=== PATIENT | female | born 1970 | race Caucasian/White ===

== ENCOUNTER 2017-10-13 09:27 | Day surgery (SDC) | payer BC ==
[~2017-10-13] VITALS: Ht 170.2 cm; Wt 121.4 kg
[~2017-10-13 09:27] MED LIST: CARAFATE PO; FERROUS SU325 MG/TAB PO; FLEXERIL 1010 MG/TAB PO; INDOCIN50 MG PO; LIPITOR20 MG PO; LORTAB 5/500 501 TAB PO; PROTONIX 40MG T40 MG PO; SYNTHROID0.05 MG/TA PO
[2017-10-13 10:41] VITALS: BP 129/82; PULSE 98; TEMP 97.9
[2017-10-13] MEDS ORDERED: TAGAMET200 MG PO (10:53)
[2017-10-13] MEDS ORDERED: DECADRON 4MG TAB4 MG PO (10:54)
[2017-10-13] MEDS ORDERED: PHENERGAN 25 TA25 MG PO (10:55)
[2017-10-13] MEDS ORDERED: IBU800 M1 PO (10:56)
[2017-10-13] MEDS ORDERED: SENOKOT S 50 MG1 TAB PO (10:57)
[2017-10-13] MEDS ORDERED: ATIVAN 0.50.5 MG/TAB PO (10:57)
[2017-10-13] MEDS ORDERED: ROXICODONE 55 MG/TAB PO (10:58)
[2017-10-13] MEDS ORDERED: MIRALAX PA17 GM/Dose PO (10:59)
[2017-10-13] MEDS ORDERED: NORCO 325 MG-51 TAB PO (10:59)
[2017-10-13] MEDS ORDERED: CLARITIN 1010 MG/TAB PO (11:00)
[2017-10-13 13:30] VITALS: BP 139/88; PULSE 105
[2017-10-13 13:45] VITALS: BP 134/79; PULSE 100
[2017-10-13 14:00] VITALS: BP 133/91; PULSE 99
== END 2017-10-13 14:30 | disposition home or self-care (01) ==
LOC: SDCO 09:27
DX: C48.2 Malignant neoplasm of peritoneum, unspecified (principal); C78.7 Secondary malignant neoplasm of liver and intrahepatic bile duct; I10 Essential (primary) hypertension; M81.0 Age-related osteoporosis without current pathological fracture; K21.9 Gastro-esophageal reflux disease without esophagitis; I87.8 Other specified disorders of veins; Z90.49 Acquired absence of other specified parts of digestive tract; Z90.710 Acquired absence of both cervix and uterus; Z88.8 Allergy status to other drugs, medicaments and biological substances; Z88.5 Allergy status to narcotic agent; Z87.891 Personal history of nicotine dependence
CPT/HCPCS: C1788; J0690; J1644; J2704; J3010; J7120

== ENCOUNTER → 2017-11-07 | Outpatient (CLI) | payer BC ==
[~2017-11-07] MED LIST changes: +ATIVAN 0.50.5 MG/TAB PO; +CLARITIN 1010 MG/TAB PO; +DECADRON 4MG TAB4 MG PO; +IBU800 M1 PO; +MIRALAX PA17 GM/Dose PO; +NORCO 325 MG-51 TAB PO; +PHENERGAN 25 TA25 MG PO; +ROXICODONE 55 MG/TAB PO; +SENOKOT S 50 MG1 TAB PO; +TAGAMET200 MG PO
[2017-11-07 10:33] LABS: BASO % 0.6 % (0.0-2.0); EOS # 0.1 (0.0-0.7); EOS % 1.3 % (0-4.0); GRAN # 3.5 (1.4-6.5); GRAN % 55.3 % (42.2-75.2); HEMATOCRIT 37.4 % (37.0-47.0); HEMOGLOBIN 12.6 g/dl (12.5-16.0); LYMPH % 30.8 % (20.0-51.0); MEAN CELL VOLUME 89 fl (80.0-100.0); MEAN CORPUSCULAR HEMOGLOBIN 30 pg (27.0-31.0); MEAN CORPUSCULAR HGB CONC 34 g/dl (33.0-37.0); MEAN PLATELET VOLUME 9.3 fl (7.4-10.4); MONO # 0.7 (0.1-0.6); MONO % 11.2 % (1.7-9.3); PLATELET COUNT 261 K/mm3 (130-400); RED BLOOD COUNT 4.21 M/mm3 (4.10-5.30); REDCELL DISTRIBUTION WIDTH-CV 19.2 % (11.5-14.5)
[2017-11-07 10:46] LABS: ALBUMIN 4.4 gm/dL (3.5-5.0); BILIRUBIN,TOTAL 0.7 mg/dL (0.0-1.0); CALCIUM 9.5 mg/dL (8.4-10.2); CREATININE, serum 0.61 mg/dL (0.52-1.25); POTASSIUM 4.1 mmol/L (3.4-5.0); TOTAL PROTEIN 8.4 gm/dL (6.4-8.2)
== END ==
LOC: COL.RAD 09:48
PROVIDERS: Obstetrics & Gynecology
DX: C48.8 Malignant neoplasm of overlapping sites of retroperitoneum and peritoneum (principal); C78.7 Secondary malignant neoplasm of liver and intrahepatic bile duct; R91.8 Other nonspecific abnormal finding of lung field; E04.9 Nontoxic goiter, unspecified; E27.8 Other specified disorders of adrenal gland; Z90.710 Acquired absence of both cervix and uterus; Z96.0 Presence of urogenital implants; Z90.49 Acquired absence of other specified parts of digestive tract
CPT/HCPCS: Q9967

== ENCOUNTER → 2017-11-28 | Outpatient (CLI) | payer BC ==
[~2017-11-28] MED LIST changes: +FLOMAX 0.40.4 MG/CAP PO; +OMNICEF 300MG300 MG PO
[2017-11-28 08:57] LABS: HEMOGLOBIN 10.1 g/dl (12.5-16.0); MEAN CELL VOLUME 87 fl (80.0-100.0); MEAN CORPUSCULAR HEMOGLOBIN 30 pg (27.0-31.0); MEAN CORPUSCULAR HGB CONC 34 g/dl (33.0-37.0); MEAN PLATELET VOLUME 9.4 fl (7.4-10.4); REDCELL DISTRIBUTION WIDTH-CV 15.3 % (11.5-14.5)
[2017-11-28 09:08] LABS: ALBUMIN 3.9 gm/dL (3.5-5.0); BILIRUBIN,TOTAL 0.7 mg/dL (0.0-1.0); CALCIUM 9.5 mg/dL (8.4-10.2); CREATININE, serum 0.59 mg/dL (0.52-1.25); POTASSIUM 3.9 mmol/L (3.4-5.0); TOTAL PROTEIN 7.4 gm/dL (6.4-8.2)
[2017-11-28 09:27] LABS: HEMATOCRIT 29.7 % (37.0-47.0)
[2017-11-28 09:31] LABS: PLATELET COUNT 28 K/mm3 (130-400)
[2017-11-28 09:48] LABS: BAND 2 % (0-10); EOSINOPHIL 1 % (0-4); LYMPHOCYTE 77 % (20.0-51.0); METAMYELOCYTE 1 % (0-0); NEUTROPHILS 19 % (42.0-75.2); PLATELET ESTIMATE DECREASED (NORMAL)
== END ==
LOC: COL.LAB 08:22
PROVIDERS: Obstetrics & Gynecology
DX: C48.8 Malignant neoplasm of overlapping sites of retroperitoneum and peritoneum (principal)

== ENCOUNTER → 2017-11-28 | Emergency (ER) | payer BC ==
[~2017-11-28] VITALS: Ht 170.2 cm; Wt 120.5 kg
[2017-11-28 15:10] VITALS: BP 165/99; PULSE 117; TEMP 98.3
[2017-11-28 16:34] LABS: COLLECTION METHOD CLEAN CATCH
[2017-11-28 16:47] LABS: MUCOUS Present /lpf; PH 6 (5-8); SQUAMOUS EPITHELIAL 0-2 /hpf; URINE APPEARANCE Hazy; URINE BACTERIA Rare /hpf; URINE BILIRUBIN Negative (NEGATIVE); URINE BLOOD 3+ (NEGATIVE); URINE COLOR Yellow; URINE GLUCOSE Negative (NEGATIVE); URINE KETONE Negative (NEGATIVE); URINE LEUKOCYTE ESTERASE Negative (NEGATIVE); URINE NITRATE Negative (NEGATIVE); URINE PROTEIN(semi-quant) 1+ (NEGATIVE); URINE RBC >50 /hpf
== END ==
LOC: COL.ER 15:07
PROVIDERS: Emergency Medicine
DX: R10.9 Unspecified abdominal pain (principal); Z96.0 Presence of urogenital implants
CPT/HCPCS: J0696; J0780; J1885; J3010; J7030; Q9967

== ENCOUNTER → 2017-12-07 | Outpatient (CLI) | payer BC ==
[2017-12-07 08:44] LABS: BASO % 0.7 % (0.0-2.0); EOS # 0.1 (0.0-0.7); EOS % 2.1 % (0-4.0); GRAN # 1.3 (1.4-6.5); HEMOGLOBIN 11.3 g/dl (12.5-16.0); LYMPH # 2.2 (1.2-3.4); LYMPH % 51.9 % (20.0-51.0); MEAN CELL VOLUME 91 fl (80.0-100.0); MEAN CORPUSCULAR HEMOGLOBIN 30 pg (27.0-31.0); MEAN CORPUSCULAR HGB CONC 33 g/dl (33.0-37.0); MEAN PLATELET VOLUME 8.8 fl (7.4-10.4); MONO # 0.6 (0.1-0.6); MONO % 14.1 % (1.7-9.3); PLATELET COUNT 496 K/mm3 (130-400); RED BLOOD COUNT 3.79 M/mm3 (4.10-5.30); REDCELL DISTRIBUTION WIDTH-CV 16.8 % (11.5-14.5)
[2017-12-07 08:48] LABS: HEMATOCRIT 34.6 % (37.0-47.0)
== END ==
LOC: COL.LAB 08:09
PROVIDERS: Obstetrics & Gynecology
DX: C48.8 Malignant neoplasm of overlapping sites of retroperitoneum and peritoneum (principal)

== ENCOUNTER → 2017-12-28 | Outpatient (CLI) | payer BC ==
[2017-12-28 10:16] LABS: HEMATOCRIT 29.1 % (37.0-47.0); HEMOGLOBIN 9.8 g/dl (12.5-16.0); MEAN CELL VOLUME 94 fl (80.0-100.0); MEAN CORPUSCULAR HEMOGLOBIN 32 pg (27.0-31.0); MEAN CORPUSCULAR HGB CONC 34 g/dl (33.0-37.0); MEAN PLATELET VOLUME 10.9 fl (7.4-10.4); PLATELET COUNT 85 K/mm3 (130-400); RED BLOOD COUNT 3.11 M/mm3 (4.10-5.30)
[2017-12-28 10:27] LABS: ALBUMIN 3.9 gm/dL (3.5-5.0); BILIRUBIN,TOTAL 0.4 mg/dL (0.0-1.0); CREATININE, serum 0.61 mg/dL (0.52-1.25); POTASSIUM 3.6 mmol/L (3.4-5.0); TOTAL PROTEIN 6.9 gm/dL (6.4-8.2)
[2017-12-28 10:39] LABS: ANISOCYTOSIS 1+; BAND 11 % (0-10); LYMPHOCYTE 36 % (20.0-51.0); MYELOCYTE 1 % (0-0); NEUTROPHILS 39 % (42.0-75.2); NUCLEATED RED BLOOD CELL 1 (0-6); PLATELET ESTIMATE DECREASED (NORMAL); POLYCHROMASIA 2+
[2017-12-28 10:40] LABS: TOXIC GRANULATION PRESENT
== END ==
LOC: COL.LAB 09:45
PROVIDERS: Obstetrics & Gynecology
DX: C48.8 Malignant neoplasm of overlapping sites of retroperitoneum and peritoneum (principal)

== ENCOUNTER → 2018-01-18 | Outpatient (CLI) | payer BC ==
[2018-01-18 08:34] LABS: MEAN CELL VOLUME 95 fl (80.0-100.0); MEAN CORPUSCULAR HGB CONC 33 g/dl (33.0-37.0); RED BLOOD COUNT 2.81 M/mm3 (4.10-5.30); REDCELL DISTRIBUTION WIDTH-CV 15.8 % (11.5-14.5)
[2018-01-18 08:42] LABS: ALBUMIN 3.7 gm/dL (3.5-5.0); BILIRUBIN,TOTAL 0.4 mg/dL (0.0-1.0); CALCIUM 8.4 mg/dL (8.4-10.2); CREATININE, serum 0.59 mg/dL (0.52-1.25); POTASSIUM 3.4 mmol/L (3.4-5.0); TOTAL PROTEIN 6.6 gm/dL (6.4-8.2)
[2018-01-18 09:53] LABS: HEMATOCRIT 26.6 % (37.0-47.0); HEMOGLOBIN 8.7 g/dl (12.5-16.0); MEAN CORPUSCULAR HEMOGLOBIN 31 pg (27.0-31.0)
[2018-01-18 09:56] LABS: PLATELET COUNT 26 K/mm3 (130-400)
[2018-01-18 10:27] LABS: BAND 10 % (0-10); EOSINOPHIL 2 % (0-4); LYMPHOCYTE 42 % (20.0-51.0); METAMYELOCYTE 1 % (0-0); NEUTROPHILS 32 % (42.0-75.2); NUCLEATED RED BLOOD CELL 1 (0-6)
[2018-01-18 10:28] LABS: PLATELET ESTIMATE DECREASED (NORMAL)
[2018-01-18 10:29] LABS: HYPOCHROMIA 1+
== END ==
LOC: COL.LAB 07:53
PROVIDERS: Obstetrics & Gynecology
DX: C48.8 Malignant neoplasm of overlapping sites of retroperitoneum and peritoneum (principal)

== ENCOUNTER → 2018-01-22 | Outpatient (CLI) | payer BC ==
[2018-01-22 08:41] LABS: BASO % 0.5 % (0.0-2.0); EOS # 0.1 (0.0-0.7); EOS % 1.6 % (0-4.0); GRAN # 1.7 (1.4-6.5); LYMPH # 1.3 (1.2-3.4); LYMPH % 35.5 % (20.0-51.0); MEAN CELL VOLUME 98 fl (80.0-100.0); MEAN CORPUSCULAR HGB CONC 32 g/dl (33.0-37.0); MEAN PLATELET VOLUME 10.5 fl (7.4-10.4); MONO # 0.6 (0.1-0.6); MONO % 16.9 % (1.7-9.3); PLATELET COUNT 155 K/mm3 (130-400); RED BLOOD COUNT 3.09 M/mm3 (4.10-5.30); REDCELL DISTRIBUTION WIDTH-CV 18.7 % (11.5-14.5)
[2018-01-22 08:42] LABS: HEMATOCRIT 30.4 % (37.0-47.0); HEMOGLOBIN 9.6 g/dl (12.5-16.0); MEAN CORPUSCULAR HEMOGLOBIN 31 pg (27.0-31.0)
[2018-01-22 08:51] LABS: BILIRUBIN,TOTAL 0.3 mg/dL (0.0-1.0); CALCIUM 8.3 mg/dL (8.4-10.2); CREATININE, serum 0.74 mg/dL (0.52-1.25); POTASSIUM 3.9 mmol/L (3.4-5.0); TOTAL PROTEIN 6.8 gm/dL (6.4-8.2)
== END ==
LOC: COL.LAB 08:18
PROVIDERS: Obstetrics & Gynecology
DX: C48.8 Malignant neoplasm of overlapping sites of retroperitoneum and peritoneum (principal)

== ENCOUNTER → 2018-02-14 | Outpatient (CLI) | payer BC ==
[2018-02-14 10:31] LABS: MEAN CELL VOLUME 97 fl (80.0-100.0); MEAN CORPUSCULAR HGB CONC 32 g/dl (33.0-37.0); MEAN PLATELET VOLUME 11.1 fl (7.4-10.4); PLATELET COUNT 118 K/mm3 (130-400); RED BLOOD COUNT 2.65 M/mm3 (4.10-5.30); REDCELL DISTRIBUTION WIDTH-CV 17.2 % (11.5-14.5)
[2018-02-14 10:37] LABS: HEMATOCRIT 25.8 % (37.0-47.0); HEMOGLOBIN 8.3 g/dl (12.5-16.0); MEAN CORPUSCULAR HEMOGLOBIN 31 pg (27.0-31.0)
[2018-02-14 10:45] LABS: ALBUMIN 3.6 gm/dL (3.5-5.0); BILIRUBIN,TOTAL 0.4 mg/dL (0.0-1.0); CALCIUM 8.1 mg/dL (8.4-10.2); CREATININE, serum 0.6 mg/dL (0.52-1.25); POTASSIUM 3.3 mmol/L (3.4-5.0); TOTAL PROTEIN 6.4 gm/dL (6.4-8.2)
[2018-02-14 10:54] LABS: ANISOCYTOSIS 1+; BAND 8 % (0-10); EOSINOPHIL 1 % (0-4); LYMPHOCYTE 51 % (20.0-51.0); MYELOCYTE 4 % (0-0); NEUTROPHILS 29 % (42.0-75.2); NUCLEATED RED BLOOD CELL 2 (0-6); PLATELET ESTIMATE DECREASED (NORMAL); POLYCHROMASIA 2+
== END ==
LOC: COL.LAB 09:41
PROVIDERS: Obstetrics & Gynecology
DX: C48.8 Malignant neoplasm of overlapping sites of retroperitoneum and peritoneum (principal)

== ENCOUNTER → 2018-02-28 | Outpatient (CLI) | payer BC | LOC: MC.RAD 09:03 | DX: Z12.31 Encounter for screening mammogram for malignant neoplasm of breast (principal); N64.89 Other specified disorders of breast ==

== ENCOUNTER → 2018-03-07 | Outpatient (CLI) | payer BC | LOC: MC.RAD 10:39 | DX: N64.89 Other specified disorders of breast (principal) ==

== ENCOUNTER → 2018-03-29 | Outpatient (CLI) | payer BC ==
[~2018-03-29] MED LIST changes: +ATIVAN2 MG PO; +PERCOCET 325 MG1 TA2 PO; +PRIL40 PO
== END ==
LOC: COL.RAD 12:06
DX: C48.2 Malignant neoplasm of peritoneum, unspecified (principal); R42 Dizziness and giddiness; R51 Headache
CPT/HCPCS: A9585

== ENCOUNTER 2018-04-12 11:46 | Day surgery (SDC) | payer BC ==
[~2018-04-12] VITALS: Ht 167.6 cm; Wt 128.8 kg
[~2018-04-12 11:46] MED LIST changes: -ATIVAN2 MG PO; -PERCOCET 325 MG1 TA2 PO; -PRIL40 PO
[2018-04-12] MEDS ORDERED: ATIVAN2 MG PO (12:15)
[2018-04-12] MEDS ORDERED: PRIL40 PO (12:15)
[2018-04-12 12:16] VITALS: BP 130/99; PULSE 104; TEMP 97.7
[2018-04-12] MEDS ORDERED: PERCOCET 325 MG1 TA2 PO (12:16)
[2018-04-12 16:05] VITALS: BP 123/80; PULSE 94; TEMP 97.7
[2018-04-12 16:20] VITALS: BP 118/71; PULSE 90
[2018-04-12 16:35] VITALS: BP 127/75; PULSE 91
== END 2018-04-12 16:51 | disposition home or self-care (01) ==
LOC: SDCO 11:46
DX: N13.5 Crossing vessel and stricture of ureter without hydronephrosis (principal); N13.1 Hydronephrosis with ureteral stricture, not elsewhere classified; K21.9 Gastro-esophageal reflux disease without esophagitis; Z85.118 Personal history of other malignant neoplasm of bronchus and lung; Z85.05 Personal history of malignant neoplasm of liver; Z90.49 Acquired absence of other specified parts of digestive tract; Z90.710 Acquired absence of both cervix and uterus; Z88.5 Allergy status to narcotic agent; Z88.8 Allergy status to other drugs, medicaments and biological substances; Z87.891 Personal history of nicotine dependence
CPT/HCPCS: C1769; C2617; J0690; J2704; J3010; J7120; Q9967

== ENCOUNTER → 2018-04-19 | Outpatient (CLI) | payer BC ==
[~2018-04-19] MED LIST changes: +ATIVAN2 MG PO; +PERCOCET 325 MG1 TA2 PO; +PRIL40 PO
[2018-04-19 08:55] LABS: BASO % 0.1 % (0.0-2.0); EOS # 0.1 (0.0-0.7); EOS % 1.7 % (0-4.0); GRAN # 3.6 (1.4-6.5); GRAN % 51.6 % (42.2-75.2); HEMOGLOBIN 11.3 g/dl (12.5-16.0); LYMPH # 2.7 (1.2-3.4); LYMPH % 39.1 % (20.0-51.0); MEAN CELL VOLUME 93 fl (80.0-100.0); MEAN CORPUSCULAR HEMOGLOBIN 29 pg (27.0-31.0); MEAN CORPUSCULAR HGB CONC 32 g/dl (33.0-37.0); MONO # 0.5 (0.1-0.6); MONO % 6.9 % (1.7-9.3); PLATELET COUNT 218 K/mm3 (130-400); RED BLOOD COUNT 3.88 M/mm3 (4.10-5.30); REDCELL DISTRIBUTION WIDTH-CV 13.7 % (11.5-14.5)
[2018-04-19 08:56] LABS: HEMATOCRIT 35.9 % (37.0-47.0)
[2018-04-19 09:04] LABS: ALBUMIN 3.7 gm/dL (3.5-5.0); BILIRUBIN,TOTAL 0.3 mg/dL (0.0-1.0); CALCIUM 8.6 mg/dL (8.4-10.2); CREATININE, serum 0.63 mg/dL (0.52-1.25); POTASSIUM 4.2 mmol/L (3.4-5.0); TOTAL PROTEIN 6.9 gm/dL (6.4-8.2)
== END ==
LOC: COL.LAB 08:06
PROVIDERS: Obstetrics & Gynecology
DX: C48.8 Malignant neoplasm of overlapping sites of retroperitoneum and peritoneum (principal)

== ENCOUNTER 2018-04-26 20:55 | Emergency (ER) | payer BC ==
[~2018-04-26] VITALS: Ht 167.6 cm; Wt 130.0 kg
[2018-04-26 21:01] VITALS: TEMP 98
[2018-04-26 22:29] LABS: BASO % 0.5 % (0.0-2.0); EOS # 0.3 (0.0-0.7); EOS % 3.3 % (0-4.0); GRAN # 5.4 (1.4-6.5); GRAN % 68.3 % (42.2-75.2); HEMATOCRIT 39.1 % (37.0-47.0); HEMOGLOBIN 12.7 g/dl (12.5-16.0); LYMPH # 1.5 (1.2-3.4); LYMPH % 18.9 % (20.0-51.0); MEAN CELL VOLUME 87 fl (80.0-100.0); MEAN CORPUSCULAR HEMOGLOBIN 28 pg (27.0-31.0); MEAN CORPUSCULAR HGB CONC 33 g/dl (33.0-37.0); MEAN PLATELET VOLUME 8.8 fl (7.4-10.4); MONO # 0.7 (0.1-0.6); MONO % 8.6 % (1.7-9.3); PLATELET COUNT 246 K/mm3 (130-400); RED BLOOD COUNT 4.48 M/mm3 (4.10-5.30); REDCELL DISTRIBUTION WIDTH-CV 13.8 % (11.5-14.5)
[2018-04-26 22:35] LABS: COLLECTION METHOD CLEAN CATCH
[2018-04-26 22:39] LABS: ALBUMIN 4.2 gm/dL (3.5-5.0); BILIRUBIN,TOTAL 0.4 mg/dL (0.0-1.0); CALCIUM 9.5 mg/dL (8.4-10.2); CREATININE, serum 0.62 mg/dL (0.52-1.25)
[2018-04-26 22:46] LABS: MUCOUS Present /lpf; PH 5 (5-8); URINE APPEARANCE Clear; URINE BACTERIA None Seen /hpf; URINE BILIRUBIN Negative (NEGATIVE); URINE BLOOD 2+ (NEGATIVE); URINE COLOR Yellow; URINE GLUCOSE Negative (NEGATIVE); URINE KETONE Negative (NEGATIVE); URINE LEUKOCYTE ESTERASE 1+ (NEGATIVE); URINE NITRATE Negative (NEGATIVE); URINE PROTEIN(semi-quant) 1+ (NEGATIVE); URINE RBC >50 /hpf; URINE UROBILINOGEN Negative (NEGATIVE)
[2018-04-26] MEDS ORDERED: AMOXICILLIN 8751 TAB PO (23:45)
[2018-04-26 23:53] VITALS: BP 121/85; PULSE 100
== END 2018-04-27 | disposition home or self-care (01) ==
LOC: COL.ER 20:55
PROVIDERS: Emergency Medicine
DX: J06.9 Acute upper respiratory infection, unspecified (principal); J32.9 Chronic sinusitis, unspecified; K21.9 Gastro-esophageal reflux disease without esophagitis; E66.9 Obesity, unspecified; Z90.49 Acquired absence of other specified parts of digestive tract; Z90.710 Acquired absence of both cervix and uterus; Z87.891 Personal history of nicotine dependence; Z98.51 Tubal ligation status
CPT/HCPCS: J7030

== ENCOUNTER → 2018-05-25 | Outpatient (CLI) | payer BC ==
[~2018-05-25] MED LIST changes: +AMOXICILLIN 8751 TAB PO
== END ==
LOC: COL.LAB 13:48
DX: E07.9 Disorder of thyroid, unspecified (principal)

== ENCOUNTER → 2018-06-21 | Outpatient (CLI) | payer BC ==
[2018-06-21 09:22] LABS: BASO % 0.6 % (0.0-2.0); EOS # 0.1 (0.0-0.7); EOS % 1.7 % (0-4.0); GRAN # 2.3 (1.4-6.5); HEMATOCRIT 43.2 % (37.0-47.0); HEMOGLOBIN 13.6 g/dl (12.5-16.0); LYMPH # 2.1 (1.2-3.4); LYMPH % 43.8 % (20.0-51.0); MEAN CELL VOLUME 88 fl (80.0-100.0); MEAN CORPUSCULAR HEMOGLOBIN 28 pg (27.0-31.0); MEAN CORPUSCULAR HGB CONC 32 g/dl (33.0-37.0); MEAN PLATELET VOLUME 9.5 fl (7.4-10.4); MONO # 0.3 (0.1-0.6); MONO % 6.5 % (1.7-9.3); PLATELET COUNT 213 K/mm3 (130-400); RED BLOOD COUNT 4.92 M/mm3 (4.10-5.30); REDCELL DISTRIBUTION WIDTH-CV 14.3 % (11.5-14.5)
[2018-06-21 09:31] LABS: ALBUMIN 4.4 gm/dL (3.5-5.0); BILIRUBIN,TOTAL 0.5 mg/dL (0.0-1.0); CALCIUM 9.5 mg/dL (8.4-10.2); CREATININE, serum 0.77 mg/dL (0.52-1.25); POTASSIUM 4.3 mmol/L (3.4-5.0); TOTAL PROTEIN 8.2 gm/dL (6.4-8.2)
== END ==
LOC: COL.LAB 08:14
PROVIDERS: Obstetrics & Gynecology
DX: Z01.89 Encounter for other specified special examinations (principal)

== ENCOUNTER 2018-07-19 12:29 | Day surgery (SDC) | payer BC ==
[~2018-07-19] VITALS: Ht 167.6 cm; Wt 126.4 kg
[2018-07-19 13:00] VITALS: BP 116/82; PULSE 107; TEMP 97.6
[2018-07-19] MEDS ORDERED: TIROSINT75 MC1 PO (13:11)
[2018-07-19] MEDS ORDERED: EQUATE PO (13:12)
[2018-07-19] MEDS ORDERED: ADIPEX-P37.5 MG PO (13:12)
--- NOTE | 2018-07-19 13:14 | NUR ---
TO RM AT 1233- CALL LIGHT IN REACH
--- NOTE | 2018-07-19 13:25 | NUR ---
NO ONE WITH PATIENT AT THIS TIME ON HIS WAY TO HOSPITAL
[2018-07-19 15:40] VITALS: BP 117/79; PULSE 89; TEMP 98.1
--- NOTE | 2018-07-19 15:40 | NUR ---
TO RM 7 PER CART FROM PACU. ALERT ORIENTED X3, TALKING TO STAFF AND . RECEIVED APPLE JUICE. DENIES PAIN OR DISCOMFORT DENIES NAUSEA OR VOMITING.
[2018-07-19 15:45] VITALS: BP 123/77; PULSE 94
[2018-07-19 16:00] VITALS: BP 103/83; PULSE 88
--- NOTE | 2018-07-19 16:00 | NUR ---
RESTING QUIETLY NO CHANGES
[2018-07-19 16:15] VITALS: BP 109/68; PULSE 89
--- NOTE | 2018-07-19 16:15 | NUR ---
RECEIVED MUFFIN AND 2ND GLASS OF APPLE JUICE.
--- NOTE | 2018-07-19 16:22 | NUR ---
ATE 100% AND TOLERATED WELL UP AMBULATED TO BATHROOM AND TOLERATED WELL.
--- NOTE | 2018-07-19 16:25 | NUR ---
RECEIVED DISCHARGE INSTRUCTIONS AND VERBALIZED UNDERSTANDING DISCONTINUED IV AND INT- CATHETER INTACT.
--- NOTE | 2018-07-19 16:35 | NUR ---
DISCHARGED PER WC BY NURSING STAFF TO PRIVATE CAR IN CARE OF - ALMA DELIA
== END 2018-07-19 16:49 | disposition home or self-care (01) ==
LOC: SDCO 12:29
DX: N13.1 Hydronephrosis with ureteral stricture, not elsewhere classified (principal); C22.8 Malignant neoplasm of liver, primary, unspecified as to type; C78.6 Secondary malignant neoplasm of retroperitoneum and peritoneum; C78.00 Secondary malignant neoplasm of unspecified lung; K21.9 Gastro-esophageal reflux disease without esophagitis; D64.9 Anemia, unspecified; Z90.49 Acquired absence of other specified parts of digestive tract; Z90.710 Acquired absence of both cervix and uterus; Z88.5 Allergy status to narcotic agent; Z91.048 Other nonmedicinal substance allergy status; Z88.8 Allergy status to other drugs, medicaments and biological substances; Z87.891 Personal history of nicotine dependence
CPT/HCPCS: C1769; C2617; J0690; J1100; J1200; J2704; J3010; J7120; Q9967

== ENCOUNTER → 2018-08-14 | Outpatient (CLI) | payer BC ==
[~2018-08-14] MED LIST changes: +ADIPEX-P37.5 MG PO; +EQUATE PO; +TIROSINT75 MC1 PO
== END ==
LOC: COL.RAD 08:07
DX: C48.8 Malignant neoplasm of overlapping sites of retroperitoneum and peritoneum (principal); K76.0 Fatty (change of) liver, not elsewhere classified; E27.8 Other specified disorders of adrenal gland; R19.07 Generalized intra-abdominal and pelvic swelling, mass and lump; Z96.0 Presence of urogenital implants
CPT/HCPCS: Q9967

== ENCOUNTER → 2018-08-29 | Outpatient (CLI) | payer BC | LOC: COL.RAD 10:00 | DX: C78.7 Secondary malignant neoplasm of liver and intrahepatic bile duct (principal); C48.8 Malignant neoplasm of overlapping sites of retroperitoneum and peritoneum; R91.8 Other nonspecific abnormal finding of lung field; E27.8 Other specified disorders of adrenal gland; E07.9 Disorder of thyroid, unspecified; Z95.828 Presence of other vascular implants and grafts | CPT/HCPCS: Q9967 ==

== ENCOUNTER → 2018-09-05 | Outpatient (CLI) | payer BC | LOC: MC.RAD 12:33 | DX: N64.89 Other specified disorders of breast (principal) | CPT/HCPCS: G0279 ==

== ENCOUNTER → 2018-09-07 | Outpatient (CLI) | payer BC | LOC: COL.RAD 14:51 | DX: R10.84 Generalized abdominal pain (principal) ==

== ENCOUNTER → 2018-09-13 | Outpatient (CLI) | payer BC ==
[2018-09-13 11:56] LABS: COLLECTION METHOD CLEAN CATCH
[2018-09-13 12:03] LABS: BASO % 0.4 % (0.0-2.0); EOS % 0.6 % (0-4.0); GRAN # 2.2 (1.4-6.5); GRAN % 42.5 % (42.2-75.2); HEMATOCRIT 42.9 % (37.0-47.0); HEMOGLOBIN 13.8 g/dl (12.5-16.0); LYMPH # 2.6 (1.2-3.4); LYMPH % 48.9 % (20.0-51.0); MEAN CELL VOLUME 89 fl (80.0-100.0); MEAN CORPUSCULAR HEMOGLOBIN 29 pg (27.0-31.0); MEAN CORPUSCULAR HGB CONC 32 g/dl (33.0-37.0); MEAN PLATELET VOLUME 9.3 fl (7.4-10.4); MONO # 0.4 (0.1-0.6); MONO % 7.4 % (1.7-9.3); PLATELET COUNT 156 K/mm3 (130-400); RED BLOOD COUNT 4.81 M/mm3 (4.10-5.30); REDCELL DISTRIBUTION WIDTH-CV 15.4 % (11.5-14.5)
[2018-09-13 12:14] LABS: ALBUMIN 4.1 gm/dL (3.5-5.0); BILIRUBIN,TOTAL 0.5 mg/dL (0.0-1.0); CALCIUM 8.8 mg/dL (8.4-10.2); CREATININE, serum 0.64 (0.52-1.25); TOTAL PROTEIN 7.6 gm/dL (6.4-8.2)
[2018-09-13 12:15] LABS: MUCOUS Present /lpf; PH 5 (5-8); SQUAMOUS EPITHELIAL 0-2 /hpf; URINE APPEARANCE Hazy; URINE BACTERIA Rare /hpf; URINE BILIRUBIN Negative (NEGATIVE); URINE BLOOD 2+ (NEGATIVE); URINE COLOR Yellow; URINE GLUCOSE Negative (NEGATIVE); URINE KETONE Negative (NEGATIVE); URINE LEUKOCYTE ESTERASE 1+ (NEGATIVE); URINE NITRATE Negative (NEGATIVE); URINE PROTEIN(semi-quant) 2+ (NEGATIVE); URINE UROBILINOGEN Negative (NEGATIVE)
== END ==
LOC: COL.LAB 11:04
PROVIDERS: Obstetrics & Gynecology
DX: C48.8 Malignant neoplasm of overlapping sites of retroperitoneum and peritoneum (principal)

== ENCOUNTER → 2018-09-13 | Outpatient (CLI) | payer BC ==
[2018-09-13 12:30] LABS: THYROXINE (T4)-TOTAL 10.7 ug/dL (5.5-11.0)
[2018-09-13 12:44] LABS: THYROID STIMULATING HORMONE 3.01 uIU/mL (0.465-4.680)
== END ==
LOC: COL.LAB 11:07
PROVIDERS: Otolaryngology
DX: E03.9 Hypothyroidism, unspecified (principal)

== ENCOUNTER → 2018-10-04 | Outpatient (CLI) | payer BC ==
[2018-10-04 08:20] LABS: COLLECTION METHOD CLEAN CATCH
[2018-10-04 08:23] LABS: EOS % 0.5 % (0-4.0); GRAN # 2.1 (1.4-6.5); GRAN % 48.6 % (42.2-75.2); HEMATOCRIT 37.9 % (37.0-47.0); HEMOGLOBIN 12.4 g/dl (12.5-16.0); LYMPH # 1.9 (1.2-3.4); MEAN CELL VOLUME 90 fl (80.0-100.0); MEAN CORPUSCULAR HEMOGLOBIN 30 pg (27.0-31.0); MEAN CORPUSCULAR HGB CONC 33 g/dl (33.0-37.0); MEAN PLATELET VOLUME 9.3 fl (7.4-10.4); MONO # 0.3 (0.1-0.6); MONO % 6.9 % (1.7-9.3); PLATELET COUNT 121 K/mm3 (130-400); RED BLOOD COUNT 4.21 M/mm3 (4.10-5.30); REDCELL DISTRIBUTION WIDTH-CV 17.1 % (11.5-14.5)
[2018-10-04 08:31] LABS: MUCOUS Present /lpf; PH 6 (5-8); SQUAMOUS EPITHELIAL 0-2 /hpf; URINE APPEARANCE Hazy; URINE BACTERIA None Seen /hpf; URINE BILIRUBIN Negative (NEGATIVE); URINE BLOOD Negative (NEGATIVE); URINE COLOR Yellow; URINE GLUCOSE Negative (NEGATIVE); URINE KETONE Negative (NEGATIVE); URINE LEUKOCYTE ESTERASE 1+ (NEGATIVE); URINE NITRATE Negative (NEGATIVE); URINE PROTEIN(semi-quant) 2+ (NEGATIVE); URINE RBC 0-2 /hpf; URINE UROBILINOGEN Negative (NEGATIVE)
[2018-10-04 08:42] LABS: ALBUMIN 3.8 gm/dL (3.5-5.0); BILIRUBIN,TOTAL 0.4 mg/dL (0.0-1.0); CREATININE, serum 0.59 (0.52-1.25); POTASSIUM 4.2 mmol/L (3.4-5.0); TOTAL PROTEIN 6.9 gm/dL (6.4-8.2)
== END ==
LOC: COL.LAB 07:57
PROVIDERS: Obstetrics & Gynecology
DX: C48.8 Malignant neoplasm of overlapping sites of retroperitoneum and peritoneum (principal)

== ENCOUNTER → 2018-10-22 | Outpatient (CLI) | payer BC ==
[2018-10-22 10:54] LABS: EOS % 0.4 % (0-4.0); GRAN # 2.7 (1.4-6.5); GRAN % 51.8 % (42.2-75.2); HEMOGLOBIN 12.9 g/dl (12.5-16.0); LYMPH # 2.1 (1.2-3.4); LYMPH % 39.7 % (20.0-51.0); MEAN CELL VOLUME 94 fl (80.0-100.0); MEAN CORPUSCULAR HEMOGLOBIN 30 pg (27.0-31.0); MEAN CORPUSCULAR HGB CONC 32 g/dl (33.0-37.0); MEAN PLATELET VOLUME 9.4 fl (7.4-10.4); MONO # 0.4 (0.1-0.6); MONO % 7.9 % (1.7-9.3); PLATELET COUNT 145 K/mm3 (130-400); RED BLOOD COUNT 4.27 M/mm3 (4.10-5.30); REDCELL DISTRIBUTION WIDTH-CV 18.3 % (11.5-14.5)
[2018-10-22 11:12] LABS: ALBUMIN 3.8 gm/dL (3.5-5.0); BILIRUBIN,TOTAL 0.7 mg/dL (0.0-1.0); CALCIUM 8.6 mg/dL (8.4-10.2); CREATININE, serum 0.66 (0.52-1.25); POTASSIUM 4.1 mmol/L (3.4-5.0); TOTAL PROTEIN 7.2 gm/dL (6.4-8.2)
== END ==
LOC: COL.RAD 09:28
PROVIDERS: Obstetrics & Gynecology
DX: C48.8 Malignant neoplasm of overlapping sites of retroperitoneum and peritoneum (principal); R91.8 Other nonspecific abnormal finding of lung field; K76.0 Fatty (change of) liver, not elsewhere classified; R19.00 Intra-abdominal and pelvic swelling, mass and lump, unspecified site; E89.0 Postprocedural hypothyroidism; Z95.828 Presence of other vascular implants and grafts; Z90.49 Acquired absence of other specified parts of digestive tract; Z96.89 Presence of other specified functional implants
CPT/HCPCS: Q9967

== ENCOUNTER 2018-11-08 11:31 | Day surgery (SDC) | payer BC ==
[~2018-11-08] VITALS: Ht 167.6 cm; Wt 130.6 kg
[2018-11-08 12:27] VITALS: BP 134/88; PULSE 108; TEMP 98
[2018-11-08] MEDS ORDERED: MOTRIN 800800 MG/TAB PO (12:50)
[2018-11-08] MEDS ORDERED: ATIVAN 1MG T1 MG/TAB PO (12:51)
[2018-11-08] MEDS ORDERED: SENOKOT S 50 MG1 TAB PO (12:51)
[2018-11-08] MEDS ORDERED: TIROSINT100 MC1 PO (12:52)
[2018-11-08] MEDS ORDERED: LEXAPRO 10MG10 MG PO (12:53)
[2018-11-08] MEDS ORDERED: DECADRON 4MG TAB4 MG PO ×2 (12:53→12:54)
[2018-11-08] MEDS ORDERED: PHENERGAN1.25 MG/ML PO (12:55)
[2018-11-08] MEDS ORDERED: ZOFRAN8 MG PO (12:56)
[2018-11-08] MEDS ORDERED: AVASTIN 100M25 MG/ML IV (12:58)
[2018-11-08] MEDS ORDERED: PRIL40 PO (12:59)
[2018-11-08] MEDS ORDERED: ROXICODONE 55 MG/TAB PO (13:00)
[2018-11-08 13:56] VITALS: TEMP 98
[2018-11-08 14:05] VITALS: BP 130/88; PULSE 90
--- NOTE | 2018-11-08 14:05 | NUR ---
Patient returns to room 1 per cart from PACU and is awake and alert. Temp 98.6 and room air sats 95%. Denies pain or nausea. IV fluids infusing via left port a catheter. Siderails up x2 and call light in reach.
[2018-11-08 14:20] VITALS: BP 142/93; PULSE 84
--- NOTE | 2018-11-08 14:20 | NUR ---
Assisted up to the bathroom and is able to void and returns to room. Urine pink tinged. Gait steady. Given muffin and juice to eat and drink.
[2018-11-08 14:35] VITALS: BP 133/82; PULSE 88
--- NOTE | 2018-11-08 14:35 | NUR ---
Room air sats 94%. Tolerates muffin and juice.
--- NOTE | 2018-11-08 14:45 | NUR ---
Port a catheter deaccessed and bandaid applied to site. Line flushed with normal saline and heparin per protocol.
--- NOTE | 2018-11-08 14:50 | NUR ---
Given dismissal instructions and voices understanding of these. Dresses self.
--- NOTE | 2018-11-08 14:53 | NUR ---
Patient dismissed to home per private vehicle driven by son and taken to the front door per wheelchair and assisted into vehicle. Dismissal instructions in hand.
== END 2018-11-08 14:53 | disposition home or self-care (01) ==
LOC: SDCO 11:31
DX: N13.1 Hydronephrosis with ureteral stricture, not elsewhere classified (principal); N32.89 Other specified disorders of bladder; Z85.05 Personal history of malignant neoplasm of liver; Z92.21 Personal history of antineoplastic chemotherapy; Z85.118 Personal history of other malignant neoplasm of bronchus and lung; Z90.49 Acquired absence of other specified parts of digestive tract; Z90.710 Acquired absence of both cervix and uterus; Z88.5 Allergy status to narcotic agent; Z88.1 Allergy status to other antibiotic agents; Z91.018 Allergy to other foods; Z88.8 Allergy status to other drugs, medicaments and biological substances; Z87.891 Personal history of nicotine dependence; K21.9 Gastro-esophageal reflux disease without esophagitis; D64.81 Anemia due to antineoplastic chemotherapy; Z87.442 Personal history of urinary calculi
CPT/HCPCS: C1769; C2617; J0690; J1100; J1644; J2704; J3010; J7120

== ENCOUNTER → 2018-11-15 | Outpatient (CLI) | payer BC ==
[~2018-11-15] MED LIST changes: +ATIVAN 1MG T1 MG/TAB PO; +AVASTIN 100M25 MG/ML IV; +LEXAPRO 10MG10 MG PO; +MOTRIN 800800 MG/TAB PO; +PHENERGAN1.25 MG/ML PO; +TIROSINT100 MC1 PO; +ZOFRAN8 MG PO
[2018-11-15 12:35] LABS: BASO % 0.3 % (0.0-2.0); EOS # 0.1 (0.0-0.7); EOS % 0.7 % (0-4.0); GRAN # 3.9 (1.4-6.5); GRAN % 52.4 % (42.2-75.2); HEMATOCRIT 39.5 % (37.0-47.0); LYMPH # 2.8 (1.2-3.4); LYMPH % 37.3 % (20.0-51.0); MEAN CELL VOLUME 95 fl (80.0-100.0); MEAN CORPUSCULAR HEMOGLOBIN 31 pg (27.0-31.0); MEAN CORPUSCULAR HGB CONC 33 g/dl (33.0-37.0); MEAN PLATELET VOLUME 9.5 fl (7.4-10.4); MONO # 0.7 (0.1-0.6); MONO % 8.9 % (1.7-9.3); PLATELET COUNT 215 K/mm3 (130-400); RED BLOOD COUNT 4.15 M/mm3 (4.10-5.30); REDCELL DISTRIBUTION WIDTH-CV 17.1 % (11.5-14.5)
[2018-11-15 12:46] LABS: ALBUMIN 3.9 gm/dL (3.5-5.0); BILIRUBIN,TOTAL 0.4 mg/dL (0.0-1.0); CREATININE, serum 0.68 (0.52-1.25); POTASSIUM 4.1 mmol/L (3.4-5.0); TOTAL PROTEIN 7.2 gm/dL (6.4-8.2)
[2018-11-15 13:26] LABS: COLLECTION METHOD CLEAN CATCH
[2018-11-15 13:46] LABS: MUCOUS Present /lpf; PH 5 (5-8); URINE APPEARANCE Hazy; URINE BACTERIA Rare /hpf; URINE BILIRUBIN Negative (NEGATIVE); URINE BLOOD 2+ (NEGATIVE); URINE COLOR Yellow; URINE GLUCOSE Negative (NEGATIVE); URINE KETONE Negative (NEGATIVE); URINE LEUKOCYTE ESTERASE 2+ (NEGATIVE); URINE NITRATE Negative (NEGATIVE); URINE PROTEIN(semi-quant) 1+ (NEGATIVE); URINE RBC >50 /hpf; URINE UROBILINOGEN Negative (NEGATIVE)
== END ==
LOC: COL.LAB 11:59
PROVIDERS: Obstetrics & Gynecology
DX: C48.8 Malignant neoplasm of overlapping sites of retroperitoneum and peritoneum (principal)

== ENCOUNTER 2018-12-05 12:13 | Emergency (ER) | payer BC ==
[~2018-12-05] VITALS: Ht 170.2 cm; Wt 131.8 kg
[2018-12-05 13:32] LABS: BASO % 0.4 % (0.0-2.0); EOS # 0.1 (0.0-0.7); EOS % 1.8 % (0-4.0); GRAN # 3.6 (1.4-6.5); GRAN % 50.7 % (42.2-75.2); HEMATOCRIT 40.7 % (37.0-47.0); HEMOGLOBIN 13.1 g/dl (12.5-16.0); LYMPH # 2.8 (1.2-3.4); LYMPH % 38.7 % (20.0-51.0); MEAN CELL VOLUME 96 fl (80.0-100.0); MEAN CORPUSCULAR HEMOGLOBIN 31 pg (27.0-31.0); MEAN CORPUSCULAR HGB CONC 32 g/dl (33.0-37.0); MEAN PLATELET VOLUME 9.5 fl (7.4-10.4); MONO # 0.6 (0.1-0.6); MONO % 8.1 % (1.7-9.3); PLATELET COUNT 200 K/mm3 (130-400); RED BLOOD COUNT 4.24 M/mm3 (4.10-5.30); REDCELL DISTRIBUTION WIDTH-CV 14.6 % (11.5-14.5)
[2018-12-05 13:40] LABS: ALBUMIN 3.8 gm/dL (3.5-5.0); BILIRUBIN,TOTAL 0.4 mg/dL (0.0-1.0); CALCIUM 9.2 mg/dL (8.4-10.2); CREATININE, serum 0.68 (0.52-1.25); TOTAL PROTEIN 7.2 gm/dL (6.4-8.2)
[2018-12-05 13:54] LABS: COLLECTION METHOD CLEAN CATCH
[2018-12-05 14:26] LABS: MUCOUS Present /lpf; PH 5 (5-8); SQUAMOUS EPITHELIAL 0-2 /hpf; URINE APPEARANCE Clear; URINE BACTERIA Rare /hpf; URINE BILIRUBIN Negative (NEGATIVE); URINE BLOOD 1+ (NEGATIVE); URINE COLOR Yellow; URINE GLUCOSE Negative (NEGATIVE); URINE KETONE Negative (NEGATIVE); URINE LEUKOCYTE ESTERASE Trace (NEGATIVE); URINE NITRATE Negative (NEGATIVE); URINE PROTEIN(semi-quant) 2+ (NEGATIVE); URINE UROBILINOGEN Negative (NEGATIVE)
[2018-12-05 15:45] VITALS: BP 130/85; PULSE 99; TEMP 97.3
== END 2018-12-05 15:46 | disposition home or self-care (01) ==
LOC: COL.ER 12:13
PROVIDERS: Family Medicine
DX: R06.00 Dyspnea, unspecified (principal)
CPT/HCPCS: Q9967

== ENCOUNTER → 2019-01-15 | Outpatient (CLI) | payer BC ==
[2019-01-15 09:50] LABS: BASO % 0.5 % (0.0-2.0); EOS # 0.2 (0.0-0.7); EOS % 2.7 % (0-4.0); GRAN # 3.1 (1.4-6.5); GRAN % 51.4 % (42.2-75.2); HEMOGLOBIN 12.8 g/dl (12.5-16.0); LYMPH # 2.2 (1.2-3.4); LYMPH % 36.2 % (20.0-51.0); MEAN CELL VOLUME 92 fl (80.0-100.0); MEAN CORPUSCULAR HEMOGLOBIN 29 pg (27.0-31.0); MEAN CORPUSCULAR HGB CONC 32 g/dl (33.0-37.0); MEAN PLATELET VOLUME 9.7 fl (7.4-10.4); MONO # 0.5 (0.1-0.6); PLATELET COUNT 201 K/mm3 (130-400); RED BLOOD COUNT 4.36 M/mm3 (4.10-5.30); REDCELL DISTRIBUTION WIDTH-CV 13.9 % (11.5-14.5)
[2019-01-15 10:02] LABS: ALBUMIN 3.6 gm/dL (3.5-5.0); BILIRUBIN,TOTAL 0.5 mg/dL (0.0-1.0); CALCIUM 8.6 mg/dL (8.4-10.2); CREATININE, serum 0.63 (0.52-1.25); POTASSIUM 3.9 mmol/L (3.4-5.0); TOTAL PROTEIN 6.8 gm/dL (6.4-8.2)
== END ==
LOC: COL.RAD 09:06
PROVIDERS: Obstetrics & Gynecology
DX: C48.8 Malignant neoplasm of overlapping sites of retroperitoneum and peritoneum (principal); R51 Headache; L29.9 Pruritus, unspecified; R21 Rash and other nonspecific skin eruption; R22.1 Localized swelling, mass and lump, neck
CPT/HCPCS: J1644; Q9967

== ENCOUNTER 2019-02-08 05:41 | Day surgery (SDC) | payer BC ==
[~2019-02-08] VITALS: Ht 167.6 cm; Wt 131.9 kg
[2019-02-08 06:40] VITALS: BP 135/95; PULSE 95; TEMP 97.8
[2019-02-08 06:56] LABS: BASO % 0.4 % (0.0-2.0); EOS # 0.1 (0.0-0.7); EOS % 1.8 % (0-4.0); GRAN # 4.1 (1.4-6.5); HEMATOCRIT 41.2 % (37.0-47.0); HEMOGLOBIN 12.8 g/dl (12.5-16.0); LYMPH # 2.5 (1.2-3.4); LYMPH % 34.4 % (20.0-51.0); MEAN CELL VOLUME 91 fl (80.0-100.0); MEAN CORPUSCULAR HEMOGLOBIN 28 pg (27.0-31.0); MEAN CORPUSCULAR HGB CONC 31 g/dl (33.0-37.0); MEAN PLATELET VOLUME 10.4 fl (7.4-10.4); MONO # 0.5 (0.1-0.6); MONO % 6.3 % (1.7-9.3); PLATELET COUNT 212 K/mm3 (130-400); RED BLOOD COUNT 4.54 M/mm3 (4.10-5.30); REDCELL DISTRIBUTION WIDTH-CV 14.6 % (11.5-14.5)
[2019-02-08 07:03] LABS: ALBUMIN 3.8 gm/dL (3.5-5.0); BILIRUBIN,TOTAL 0.7 mg/dL (0.0-1.0); CALCIUM 8.4 mg/dL (8.4-10.2); CREATININE, serum 0.66 (0.52-1.25); POTASSIUM 3.7 mmol/L (3.4-5.0); TOTAL PROTEIN 6.9 gm/dL (6.4-8.2)
[2019-02-08 07:52] VITALS: TEMP 98.4
[2019-02-08 08:15] VITALS: BP 110/52; PULSE 78
--- NOTE | 2019-02-08 08:15 | NUR ---
Patient returns to room 7 ambulatory from PACU and is awake and alert. Temp 97.9 and room air sats 96%. IV fluids infusing via port a catheter on left anterior chest. Denies nausea and is sipping on water. States that she is having some soreness from her chronic pain associated with cancer. Spouse in room and patient is sipping on water.
[2019-02-08 08:30] VITALS: BP 124/77; PULSE 82
--- NOTE | 2019-02-08 08:30 | NUR ---
Eating muffin and drinking apple juice.
--- NOTE | 2019-02-08 08:40 | NUR ---
Port a catheter deaccessed and site covered with bandaid. No redness or swelling noted at the site. Port was flushed with normal saline and heparin per protocol.
--- NOTE | 2019-02-08 08:50 | NUR ---
Assisted up to the bathroom and is able to void. Gait steady. Returns to room and is able to dress self. Requesting pain medication prior to discharge. Dr. Parker notified and patient may take Oxycodone 10mg as she does at home.
--- NOTE | 2019-02-08 09:08 | NUR ---
Percocet 10mg one tab given for chronic pain as taken at home.
--- NOTE | 2019-02-08 09:12 | NUR ---
Patient given dismissal instructions and voices understanding of these. Provided office number for questions and concerns.
--- NOTE | 2019-02-08 09:15 | NUR ---
Patient dismissed to home per private vehicle driven by spouse and taken to the front door per wheelchair and assisted into vehicle with instructions in hand.
--- NOTE | 2019-02-08 10:19 | NUR ---
Patient calls back and states that she is feeling dizzy and light headed when she stands up. Instructed to lay down and rest and to force fluids and to call her PCP if it does not pass. States that she has checked her blood pressure's at home and they are normal for her.
== END 2019-02-08 09:15 | disposition home or self-care (01) ==
LOC: SDCO 05:41
PROVIDERS: Urology
DX: N13.1 Hydronephrosis with ureteral stricture, not elsewhere classified (principal); K21.9 Gastro-esophageal reflux disease without esophagitis; E66.01 Morbid (severe) obesity due to excess calories; E03.9 Hypothyroidism, unspecified; D64.81 Anemia due to antineoplastic chemotherapy; C48.2 Malignant neoplasm of peritoneum, unspecified; C78.00 Secondary malignant neoplasm of unspecified lung; C78.7 Secondary malignant neoplasm of liver and intrahepatic bile duct; Z90.49 Acquired absence of other specified parts of digestive tract; Z90.710 Acquired absence of both cervix and uterus; Z88.5 Allergy status to narcotic agent; Z91.018 Allergy to other foods; Z88.8 Allergy status to other drugs, medicaments and biological substances; Z87.891 Personal history of nicotine dependence
CPT/HCPCS: C1769; C2617; J0690; J1100; J1644; J1885; J2250; J2405; J2704; J3010; J7120; Q9967

== ENCOUNTER → 2019-03-05 | Outpatient (CLI) | payer BC ==
[2019-03-05 13:12] LABS: COLLECTION METHOD CLEAN CATCH
[2019-03-05 13:18] LABS: BASO % 0.5 % (0.0-2.0); EOS # 0.2 (0.0-0.7); EOS % 1.7 % (0-4.0); GRAN # 5.5 (1.4-6.5); HEMATOCRIT 44.1 % (37.0-47.0); HEMOGLOBIN 13.8 g/dl (12.5-16.0); LYMPH # 2.5 (1.2-3.4); LYMPH % 28.7 % (20.0-51.0); MEAN CELL VOLUME 88 fl (80.0-100.0); MEAN CORPUSCULAR HEMOGLOBIN 28 pg (27.0-31.0); MEAN CORPUSCULAR HGB CONC 31 g/dl (33.0-37.0); MEAN PLATELET VOLUME 9.7 fl (7.4-10.4); MONO # 0.5 (0.1-0.6); MONO % 5.8 % (1.7-9.3); PLATELET COUNT 236 K/mm3 (130-400); RED BLOOD COUNT 5.02 M/mm3 (4.10-5.30); REDCELL DISTRIBUTION WIDTH-CV 15.1 % (11.5-14.5)
[2019-03-05 13:21] LABS: MUCOUS Present /lpf; PH 5 (5-8); URINE APPEARANCE Hazy; URINE BACTERIA None Seen /hpf; URINE BILIRUBIN Negative (NEGATIVE); URINE BLOOD 1+ (NEGATIVE); URINE COLOR Yellow; URINE GLUCOSE Negative (NEGATIVE); URINE KETONE Negative (NEGATIVE); URINE LEUKOCYTE ESTERASE 2+ (NEGATIVE); URINE NITRATE Negative (NEGATIVE); URINE PROTEIN(semi-quant) 2+ (NEGATIVE); URINE UROBILINOGEN Negative (NEGATIVE)
[2019-03-05 13:31] LABS: BILIRUBIN,TOTAL 0.6 mg/dL (0.0-1.0); CALCIUM 8.6 mg/dL (8.4-10.2); CREATININE, serum 0.76 (0.52-1.25); POTASSIUM 3.7 mmol/L (3.4-5.0); TOTAL PROTEIN 7.3 gm/dL (6.4-8.2)
== END ==
LOC: COL.LAB 12:10
DX: C48.8 Malignant neoplasm of overlapping sites of retroperitoneum and peritoneum (principal)

== ENCOUNTER → 2019-03-13 | Outpatient (CLI) | payer BC | LOC: MC.RAD 13:41 | DX: Z12.31 Encounter for screening mammogram for malignant neoplasm of breast (principal); N64.89 Other specified disorders of breast | CPT/HCPCS: G0279 ==

== ENCOUNTER → 2019-04-04 | Outpatient (CLI) | payer BC ==
[2019-04-04 11:21] LABS: COLLECTION METHOD CLEAN CATCH
[2019-04-04 11:25] LABS: BASO % 0.5 % (0.0-2.0); EOS # 0.1 (0.0-0.7); EOS % 1.8 % (0-4.0); GRAN # 3.7 (1.4-6.5); GRAN % 59.5 % (42.2-75.2); HEMATOCRIT 43.4 % (37.0-47.0); HEMOGLOBIN 13.6 g/dl (12.5-16.0); LYMPH % 31.9 % (20.0-51.0); MEAN CELL VOLUME 88 fl (80.0-100.0); MEAN CORPUSCULAR HEMOGLOBIN 28 pg (27.0-31.0); MEAN CORPUSCULAR HGB CONC 31 g/dl (33.0-37.0); MEAN PLATELET VOLUME 9.3 fl (7.4-10.4); MONO # 0.4 (0.1-0.6); MONO % 5.8 % (1.7-9.3); PLATELET COUNT 203 K/mm3 (130-400); RED BLOOD COUNT 4.93 M/mm3 (4.10-5.30); REDCELL DISTRIBUTION WIDTH-CV 15.9 % (11.5-14.5)
[2019-04-04 11:29] LABS: MUCOUS Present /lpf; PH 6 (5-8); URINE APPEARANCE Hazy; URINE BACTERIA None Seen /hpf; URINE BILIRUBIN Negative (NEGATIVE); URINE BLOOD 1+ (NEGATIVE); URINE COLOR Yellow; URINE GLUCOSE Negative (NEGATIVE); URINE KETONE Negative (NEGATIVE); URINE LEUKOCYTE ESTERASE 2+ (NEGATIVE); URINE NITRATE Negative (NEGATIVE); URINE PROTEIN(semi-quant) 2+ (NEGATIVE); URINE UROBILINOGEN Negative (NEGATIVE)
[2019-04-04 11:42] LABS: ALBUMIN 3.9 gm/dL (3.5-5.0); BILIRUBIN,TOTAL 0.6 mg/dL (0.0-1.0); CALCIUM 9.1 mg/dL (8.4-10.2); CREATININE, serum 0.62 (0.52-1.25); POTASSIUM 3.9 mmol/L (3.4-5.0); TOTAL PROTEIN 7.3 gm/dL (6.4-8.2)
== END ==
LOC: COL.LAB 10:55
DX: C48.8 Malignant neoplasm of overlapping sites of retroperitoneum and peritoneum (principal)

== ENCOUNTER 2019-04-06 22:47 | Emergency (ER) | payer BC ==
[~2019-04-06] VITALS: Ht 167.6 cm; Wt 128.2 kg
[2019-04-06 23:10] VITALS: TEMP 98.6
[2019-04-07 01:22] LABS: BASO # 0.1 (0.0-0.2); BASO % 0.6 % (0.0-2.0); EOS # 0.1 (0.0-0.7); EOS % 1.4 % (0-4.0); GRAN # 4.7 (1.4-6.5); GRAN % 51.9 % (42.2-75.2); HEMATOCRIT 41.6 % (37.0-47.0); LYMPH # 3.5 (1.2-3.4); LYMPH % 39.3 % (20.0-51.0); MEAN CELL VOLUME 89 fl (80.0-100.0); MEAN CORPUSCULAR HEMOGLOBIN 28 pg (27.0-31.0); MEAN CORPUSCULAR HGB CONC 31 g/dl (33.0-37.0); MEAN PLATELET VOLUME 9.3 fl (7.4-10.4); MONO # 0.6 (0.1-0.6); MONO % 6.5 % (1.7-9.3); PLATELET COUNT 195 K/mm3 (130-400); RED BLOOD COUNT 4.67 M/mm3 (4.10-5.30); REDCELL DISTRIBUTION WIDTH-CV 15.9 % (11.5-14.5)
[2019-04-07 01:32] LABS: ALANINE AMINOTRANSFERASE 28 U/L (9-52); ALBUMIN 3.8 gm/dL (3.5-5.0); ALKALINE PHOSPHATASE 48 U/L (50-136); ANION GAP 9 mmol/L (7-16); AST,SGOT 17 U/L (15-37); BILIRUBIN,TOTAL 0.4 mg/dL (0.0-1.0); BLOOD UREA NITROGEN 13 mg/dL (7-17); CALCIUM 8.9 mg/dL (8.4-10.2); CARBON DIOXIDE 30 mmol/L (22-30); CHLORIDE 102 mmol/L (98-107); CREATININE, serum 0.73 (0.52-1.25); GLUCOSE 110 mg/dL (74-106); POTASSIUM 3.6 mmol/L (3.4-5.0); SODIUM 140 mmol/L (137-145); TOTAL PROTEIN 7.2 gm/dL (6.4-8.2)
[2019-04-07 01:51] LABS: TROPONIN-I < 0.012 ng/mL (0.000-0.035)
[2019-04-07 04:45] VITALS: BP 123/79; PULSE 110
== END 2019-04-07 04:45 | disposition home or self-care (01) ==
LOC: COL.ER 22:47
PROVIDERS: Emergency Medicine
DX: M25.561 Pain in right knee (principal); M25.571 Pain in right ankle and joints of right foot; Z87.891 Personal history of nicotine dependence; Z85.89 Personal history of malignant neoplasm of other organs and systems
CPT/HCPCS: J7030

== ENCOUNTER 2019-04-11 13:54 | Observation (INO) | payer BC ==
[~2019-04-11] VITALS: Ht 167.6 cm; Wt 132.1 kg
[2019-04-11 14:38] LABS: BASO % 0.3 % (0.0-2.0); EOS # 0.1 (0.0-0.7); EOS % 0.7 % (0-4.0); GRAN # 4.8 (1.4-6.5); GRAN % 70.5 % (42.2-75.2); HEMATOCRIT 43.8 % (37.0-47.0); HEMOGLOBIN 13.5 g/dl (12.5-16.0); LYMPH # 1.6 (1.2-3.4); LYMPH % 23.1 % (20.0-51.0); MEAN CELL VOLUME 89 fl (80.0-100.0); MEAN CORPUSCULAR HEMOGLOBIN 28 pg (27.0-31.0); MEAN CORPUSCULAR HGB CONC 31 g/dl (33.0-37.0); MEAN PLATELET VOLUME 9.5 fl (7.4-10.4); MONO # 0.3 (0.1-0.6); PLATELET COUNT 208 K/mm3 (130-400); RED BLOOD COUNT 4.91 M/mm3 (4.10-5.30); REDCELL DISTRIBUTION WIDTH-CV 15.7 % (11.5-14.5)
[2019-04-11 14:47] LABS: ALBUMIN 3.7 gm/dL (3.5-5.0); BILIRUBIN,TOTAL 0.4 mg/dL (0.0-1.0); CALCIUM 8.7 mg/dL (8.4-10.2); CREATININE, serum 0.61 (0.52-1.25); MAGNESIUM 1.3 mg/dL (1.6-2.3); POTASSIUM 3.9 mmol/L (3.4-5.0); TOTAL PROTEIN 7.1 gm/dL (6.4-8.2)
[2019-04-11 15:03] LABS: C-REACTIVE PROTEIN 0.7 mg/dL (0.0-0.9)
[2019-04-11 15:33] LABS: COLLECTION METHOD CLEAN CATCH
[2019-04-11 15:43] LABS: MUCOUS Present /lpf; PH 7 (5-8); SQUAMOUS EPITHELIAL 0-2 /hpf; URINE APPEARANCE Hazy; URINE BACTERIA None Seen /hpf; URINE BILIRUBIN Negative (NEGATIVE); URINE BLOOD Negative (NEGATIVE); URINE COLOR Yellow; URINE GLUCOSE Negative (NEGATIVE); URINE KETONE Negative (NEGATIVE); URINE LEUKOCYTE ESTERASE Trace (NEGATIVE); URINE NITRATE Negative (NEGATIVE); URINE PROTEIN(semi-quant) 3+ (NEGATIVE)
[2019-04-11 17:40] LABS: TROPONIN-I < 0.012 ng/mL (0.000-0.035)
[2019-04-11 18:11] LABS: ARTERIAL BLD GAS TCO2 CT 28.3; ARTERIAL BLOOD GAS PCO2 43.3 mmHg (35-45); ARTERIAL BLOOD GAS PO2 80.1 mmHg (80-100); ARTERIAL BLOOD GAS pH 7.41 (7.35-7.45)
[2019-04-11 20:51] VITALS: BP 122/80; PULSE 66; TEMP 98.2
[2019-04-11 20:59] VITALS: BP 122/80; PULSE 68; TEMP 98.2
--- NOTE | 2019-04-11 21:00 | NUR ---
Admitted to room 307 from ER with DX: URI,hypoxia,weakness,,room air sat 88%, put on O2 at 2L/nc, Understands to call for assistance to bathroom, has PORT to left chest-IV fluids of NS at 125cc/hr-would like her pain meds/Ativan before bed tonight, having back pain 10/19--will give as ordered
[2019-04-11 23:34] VITALS: BP 123/87; PULSE 76; TEMP 98.7
[2019-04-12 05:24] VITALS: BP 123/85; PULSE 74; TEMP 97.8
--- NOTE | 2019-04-12 05:32 | NUR ---
Quiet night- VSS, afebrile all shift, 02 sats 94-95% on 2L/nc, Up to bathroom with standby assist, voiding daysi urine, Tele on, IV fluids of NS at 125cc/hr
[2019-04-12 06:48] LABS: HEMATOCRIT 37.8 % (37.0-47.0); MEAN CELL VOLUME 93 fl (80.0-100.0); MEAN CORPUSCULAR HEMOGLOBIN 28 pg (27.0-31.0); MEAN CORPUSCULAR HGB CONC 30 g/dl (33.0-37.0); MEAN PLATELET VOLUME 9.7 fl (7.4-10.4); PLATELET COUNT 182 K/mm3 (130-400); RED BLOOD COUNT 4.07 M/mm3 (4.10-5.30)
[2019-04-12 06:55] LABS: CALCIUM 7.9 mg/dL (8.4-10.2); CREATININE, serum 0.68 (0.52-1.25); POTASSIUM 3.2 mmol/L (3.4-5.0)
[2019-04-12 07:04] LABS: HEMOGLOBIN 11.4 g/dl (12.5-16.0)
[2019-04-12 07:37] VITALS: BP 96/68; PULSE 74; TEMP 97.9
--- NOTE | 2019-04-12 08:56 | NUR ---
LY met with the patient to discuss a discharge plan. The patient lives in [facility] with her 20-year old son and 19-year old daughter. The patient denies DME usage and reports independence with ADLs. The patient's PCP is Dr. Stacy and patient receives medications from [facility] with no difficulties. The patient does not have advanced directives in the EMR but was interested in a DPOA-HC form. Form provided. The patient plans to return home upon discharge. LY will continue to follow.
--- NOTE | 2019-04-12 09:58 | NUR ---
Patient is alert and oriented resting in bed on right side. Daughter and grandson are at bedside. Denies having any pain. Appetite is poor. IV fluids are infusing to central line, dressing is clean, dry and intact with no redness or drainage. Is wearing oxygen at 2L via nasal cannula. Does have trace edema to BLEs, is curious as to why she is still having IV fluids infusing, states she will visit with the provider regarding this. Is currently receiving postassium for protocol. Did receive 2g Magnesium. Is encouraged to have standby assitance to and from the restroom for assistance with the IV pole. Verbalizes understanding. Call light and personal items are within reach.
[2019-04-12 10:59] VITALS: BP 122/83; PULSE 85; TEMP 97.8
[2019-04-12 17:06] VITALS: BP 139/91; PULSE 91; TEMP 99.2
[2019-04-12 18:55] VITALS: BP 131/68; PULSE 78; TEMP 97.8
--- NOTE | 2019-04-12 20:15 | NUR ---
Pt resting with HOB elevated. No distress noted. Respirations even and unlabored. Lungs clear, bilateral bases diminished. Spo2 88% on room air. O2@2L reapplied- spo2 increased to 94%. Pt c/o back pain 5/10- aching. Abdomen soft, nontender. BS+. IVF infusing to L chest port. VSS. Pt denies further needs. Will continue to monitor.
--- NOTE | 2019-04-12 21:10 | NUR ---
Pt resting in bed without her oxygen on. No distress is noted, but Spo2 is 91% on RA. O2 reapplied. Will continue to monitor.
[2019-04-13 00:15] VITALS: BP 128/77; PULSE 67; TEMP 98.2
--- NOTE | 2019-04-13 00:40 | NUR ---
Pt report some pain relief from oral pain medications.Spo2 is 93% on O2@1L. Attempted to wean patient off O2 unsuccessfully. Spo2 decreased to 89% on room air while awake.
--- NOTE | 2019-04-13 01:10 | NUR ---
Patient IV pump was beeping distal occlusion. IV tubing will not flush. Attempted to flush at the cap unsuccessful. Cap replaced- able to flush, but no blood return. Access is noted to be positional. Flushing freely and gives blood return with pressure. Pt states "I do not taste the flush". Pt states that her L shoulder is tender. IVF stopped.
--- NOTE | 2019-04-13 01:35 | NUR ---
Dr Ibarra called about patient reporting pain in L shoulder area which she attributes to a possible issue with the portacath. Orders received to start patient on Colace and give her Benadryl to help her sleep.
--- NOTE | 2019-04-13 01:40 | NUR ---
Relayed information to the patient about Dr. Ibarra's orders. Benadryl and Colace offered to patient per MD order. Pt refused both medications. She is concerned and states "this has never felt like this before". Pt asked to file a complaint.
--- NOTE | 2019-04-13 01:50 | NUR ---
Nolan, powerhouse mechanic, alerted of the situation. States he will come speak with the patient.
--- NOTE | 2019-04-13 02:25 | NUR ---
Nolan, warehouse man, at bedside.
--- NOTE | 2019-04-13 02:40 | NUR ---
Dr. Ibarra called about the patient's complaints again. He stated to get a portable CXR if patient becomes SOB. She is not in distress.
--- NOTE | 2019-04-13 03:25 | NUR ---
Pt resting. She is concerned that if there is an issue with her portacath, if will cause a longer admission. No other needs noted.
[2019-04-13 04:35] VITALS: BP 125/78; PULSE 70; TEMP 98.1
[2019-04-13 05:57] LABS: BASO % 0.6 % (0.0-2.0); EOS # 0.2 (0.0-0.7); EOS % 3.8 % (0-4.0); GRAN # 2.8 (1.4-6.5); GRAN % 44.6 % (42.2-75.2); HEMATOCRIT 37.8 % (37.0-47.0); HEMOGLOBIN 11.5 g/dl (12.5-16.0); LYMPH # 2.8 (1.2-3.4); LYMPH % 44.2 % (20.0-51.0); MEAN CELL VOLUME 92 fl (80.0-100.0); MEAN CORPUSCULAR HEMOGLOBIN 28 pg (27.0-31.0); MEAN CORPUSCULAR HGB CONC 30 g/dl (33.0-37.0); MEAN PLATELET VOLUME 9.5 fl (7.4-10.4); MONO # 0.4 (0.1-0.6); MONO % 6.5 % (1.7-9.3); PLATELET COUNT 163 K/mm3 (130-400); RED BLOOD COUNT 4.13 M/mm3 (4.10-5.30); REDCELL DISTRIBUTION WIDTH-CV 15.9 % (11.5-14.5)
[2019-04-13 06:04] LABS: CALCIUM 8.8 mg/dL (8.4-10.2); CREATININE, serum 0.7 (0.52-1.25); MAGNESIUM 1.2 mg/dL (1.6-2.3); POTASSIUM 3.7 mmol/L (3.4-5.0)
--- NOTE | 2019-04-13 06:05 | NUR ---
Pt resting in bed. Pt is reassured after tasting saline flush during blood draw. Pt refuses IVF still. She did not sleep well last night.
[2019-04-13 07:24] VITALS: BP 107/81; PULSE 68; TEMP 98.5
--- NOTE | 2019-04-13 08:03 | NUR ---
Pt continues to rest in bed. She is A/Ox4. She states her chronic shoulder/back pain is a 4/10 at this time, refuses the need for any PRN pain medications. Resp. are even and unlabored at rest, pt remains on 1L O2 per NC. Sats in low 90s. Port to left upper chest is free of complications, flushes easily and good blood return obtained. Pt is up in room as tolerated. Ambulating around hallways with a SBA by PT. Pt denies any other needs, will monitor.
[2019-04-13] MEDS ORDERED: MAG-OX 400400 MG/TAB PO (11:11)
[2019-04-13 11:46] VITALS: BP 129/71; PULSE 76; TEMP 98.2
--- NOTE | 2019-04-13 12:20 | NUR ---
Pt was discharged home from the hospital. All discharge instructions and paperwork was reviewed with pt who expressed understanding and had no questions. Port to left upper chest was heparinized and removed, needle intact. New prescription sent to pharmacy. Pt awaiting family for ride home.
--- NOTE | 2019-04-13 13:12 | NUR ---
Pt was escorted out of facility by staff.
== END 2019-04-13 13:12 | disposition home or self-care (01) ==
LOC: COL.ER 13:54 → MEDICAL 17:12
PROVIDERS: Emergency Medicine; Physician Assistant; ADMIT Student in an Organized Health Care Education/Training Program
DX: R53.1 Weakness (principal); R50.9 Fever, unspecified; R09.02 Hypoxemia; E87.6 Hypokalemia; E83.42 Hypomagnesemia; C56.9 Malignant neoplasm of unspecified ovary; C78.7 Secondary malignant neoplasm of liver and intrahepatic bile duct; C78.00 Secondary malignant neoplasm of unspecified lung; C78.6 Secondary malignant neoplasm of retroperitoneum and peritoneum; E03.9 Hypothyroidism, unspecified; F32.9 Major depressive disorder, single episode, unspecified; R51 Headache; Z92.21 Personal history of antineoplastic chemotherapy; Z90.49 Acquired absence of other specified parts of digestive tract; Z90.710 Acquired absence of both cervix and uterus; Z98.51 Tubal ligation status; Z79.899 Other long term (current) drug therapy; Z87.891 Personal history of nicotine dependence; Z88.8 Allergy status to other drugs, medicaments and biological substances
CPT/HCPCS: 99222-AI; 99232-AI; 99239; A9284; G0378; J0456; J0696; J1644; J1650; J2550; J3475; J7030; J7050

== ENCOUNTER → 2019-05-08 | Outpatient (CLI) | payer BC ==
[~2019-05-08] MED LIST changes: +MAG-OX 400400 MG/TAB PO
== END ==
LOC: COL.RAD 07:52
DX: C56.1 Malignant neoplasm of right ovary (principal); R91.1 Solitary pulmonary nodule
CPT/HCPCS: Q9967

== ENCOUNTER 2019-05-17 05:29 | Day surgery (SDC) | payer BC ==
[~2019-05-17] VITALS: Ht 167.6 cm; Wt 129.3 kg
[2019-05-17] MEDS ORDERED: MAG-OX 400400 MG/TAB PO (06:04)
[2019-05-17 06:10] VITALS: BP 142/97; PULSE 95; TEMP 97.7
[2019-05-17 08:15] VITALS: BP 134/85; PULSE 79; TEMP 97.3
--- NOTE | 2019-05-17 08:15 | NUR ---
The patient arrived back to [place] [facility] from the recovery room at this time. The patient appears alert and oriented and denies any pain or nausea at this time. Post operative vital signs were started at this time. The patient has oxygen in place at 1L per nasal cannula. The patient has some ice chips at her bedside and denies wanting anything further to eat or drink at this time. Call light is within reach. Will continue to monitor the patient.
[2019-05-17 08:34] VITALS: BP 114/69; PULSE 82
--- NOTE | 2019-05-17 08:34 | NUR ---
The patient appears to be resting comfortably on the cart at this time. Vital signs appear stable. The patient continues to deny wanting anything further to eat or drink at this time. The patient did report some cramping and aching in her left shoulder and was given a warm blanket for the area and she reports that the pain is "getting better. Call light remains within reach. Will continue to monitor the patient.
[2019-05-17 08:45] VITALS: BP 117/87; PULSE 88
--- NOTE | 2019-05-17 08:45 | NUR ---
The patient agrees to try some apple juice at this time. The patient's son is back at her bedside at this time. The patient voiced a desire to ambulate to the bathroom and voided without difficulty. The patient voices a desire to be discharged home. Port was deaccessed according to the policy and procedure in place. The nurse instructed the patient to get dressed and notify the staff when she is ready to be escorted out.
--- NOTE | 2019-05-17 09:00 | NUR ---
Discharge instructions were reviewed with the patient and her son at this time. They both verbalized understanding and have no questions for the nurse at this time. The patient is dressed and ready to be escorted out.
--- NOTE | 2019-05-17 09:10 | NUR ---
The patient was escorted out via ambulation to a private vehicle by ALISTAIR Monzon. The patient's belongings and discharge paperwork were sent with her. The patient's son is present to drive her home.
== END 2019-05-17 09:10 | disposition home or self-care (01) ==
LOC: SDCO 05:29
DX: N13.1 Hydronephrosis with ureteral stricture, not elsewhere classified (principal); C48.2 Malignant neoplasm of peritoneum, unspecified; C78.7 Secondary malignant neoplasm of liver and intrahepatic bile duct; C78.00 Secondary malignant neoplasm of unspecified lung; J30.89 Other allergic rhinitis; K21.9 Gastro-esophageal reflux disease without esophagitis; F32.9 Major depressive disorder, single episode, unspecified; F41.9 Anxiety disorder, unspecified; Z90.49 Acquired absence of other specified parts of digestive tract; Z90.710 Acquired absence of both cervix and uterus; Z88.5 Allergy status to narcotic agent; Z88.8 Allergy status to other drugs, medicaments and biological substances; Z87.891 Personal history of nicotine dependence
CPT/HCPCS: C1769; C2617; J0690; J1100; J1885; J2405; J2704; J3010; J7120

== ENCOUNTER → 2019-05-20 | Outpatient (CLI) | payer BC | LOC: COL.LAB 09:27 | DX: R80.9 Proteinuria, unspecified (principal) ==

== ENCOUNTER → 2019-07-01 | Outpatient (CLI) | payer BC | LOC: COL.RAD 13:11 | DX: Z95.828 Presence of other vascular implants and grafts (principal) ==

== ENCOUNTER → 2019-08-16 | Outpatient (CLI) | payer BC | LOC: COL.RAD 10:14 | DX: R19.04 Left lower quadrant abdominal swelling, mass and lump (principal) ==

== ENCOUNTER 2019-08-23 19:00 | Emergency (ER) | payer BC ==
[~2019-08-23] VITALS: Ht 167.6 cm; Wt 125.0 kg
[2019-08-23 19:10] VITALS: TEMP 97.3
[2019-08-23 20:32] LABS: HEMOGLOBIN 11.2 g/dl (12.5-16.0); MEAN CELL VOLUME 88 fl (80.0-100.0); MEAN CORPUSCULAR HEMOGLOBIN 28 pg (27.0-31.0); MEAN CORPUSCULAR HGB CONC 31 g/dl (33.0-37.0); MEAN PLATELET VOLUME 9.7 fl (7.4-10.4); PLATELET COUNT 103 K/mm3 (130-400); RED BLOOD COUNT 4.08 M/mm3 (4.10-5.30); REDCELL DISTRIBUTION WIDTH-CV 14.8 % (11.5-14.5)
[2019-08-23 20:33] LABS: HEMATOCRIT 35.7 % (37.0-47.0)
[2019-08-23 20:56] LABS: ALANINE AMINOTRANSFERASE 85 U/L (4-34); ALBUMIN 3.7 gm/dL (3.5-5.0); ALKALINE PHOSPHATASE 55 U/L (50-136); ANION GAP 6 mmol/L (7-16); AST,SGOT 45 U/L (15-37); BILIRUBIN,TOTAL 0.4 mg/dL (0.0-1.0); BLOOD UREA NITROGEN 16 mg/dL (7-17); CALCIUM 8.4 mg/dL (8.4-10.2); CARBON DIOXIDE 31 mmol/L (22-30); CHLORIDE 102 mmol/L (98-107); CREATININE, serum 0.63 (0.52-1.25); GLUCOSE 98 mg/dL (74-106); LIPASE 31 U/L (23-300); SODIUM 139 mmol/L (137-145); TOTAL PROTEIN 6.8 gm/dL (6.4-8.2)
[2019-08-23 21:01] LABS: COLLECTION METHOD CLEAN CATCH
[2019-08-23 21:06] LABS: TROPONIN-I < 0.012 ng/mL (0.000-0.035)
[2019-08-23 21:10] LABS: MUCOUS Present /lpf; PH 5 (5-8); URINE APPEARANCE Hazy; URINE BACTERIA None Seen /hpf; URINE BILIRUBIN Negative (NEGATIVE); URINE BLOOD 1+ (NEGATIVE); URINE COLOR Yellow; URINE GLUCOSE Negative (NEGATIVE); URINE KETONE Negative (NEGATIVE); URINE LEUKOCYTE ESTERASE Negative (NEGATIVE); URINE NITRATE Negative (NEGATIVE); URINE PROTEIN(semi-quant) 2+ (NEGATIVE); URINE UROBILINOGEN Negative (NEGATIVE)
[2019-08-23 22:06] LABS: EOSINOPHIL 3 % (0-4); HYPOCHROMIA 2+; LYMPHOCYTE 53 % (20.0-51.0); NEUTROPHILS 44 % (42.0-75.2); PLATELET ESTIMATE DECREASED (NORMAL)
[2019-08-23 23:45] VITALS: BP 118/80; PULSE 91
== END 2019-08-23 23:45 | disposition home or self-care (01) ==
LOC: COL.ER 19:00
PROVIDERS: Emergency Medicine
DX: K43.9 Ventral hernia without obstruction or gangrene (principal); F32.9 Major depressive disorder, single episode, unspecified; Z85.43 Personal history of malignant neoplasm of ovary
CPT/HCPCS: J2550; J3010; J7030; Q9967

== ENCOUNTER 2019-09-27 09:12 | Day surgery (SDC) | payer BC ==
[~2019-09-27] VITALS: Ht 167.6 cm; Wt 126.8 kg
[2019-09-27] MEDS ORDERED: [UNRECOGNIZED DRUG - OTHER] (09:40)
[2019-09-27] MEDS ORDERED: GEMZAR (09:40)
[2019-09-27] MEDS ORDERED: NEULASTA 66 MG/0.6 M SQ (09:42)
[2019-09-27 10:00] VITALS: BP 107/73; PULSE 96; TEMP 98.6
[2019-09-27 12:25] VITALS: BP 105/64; PULSE 87; TEMP 98.4
--- NOTE | 2019-09-27 12:25 | NUR ---
Pt to [facility] bay 7 via cart from PACU. Pt awake and alert. Pt c/o pain to abdomen and back. Pt rates pain /. Pt refusing pain medication at this time stating "I just want to go home. I am ok." Juice and muffin given per pt request. Will continue to monitor. O2 on at 4L/nc upon arrival, O2 decreased to 2 liters via nasal canula at this time. Call light within reach.
[2019-09-27 12:40] VITALS: BP 107/89; PULSE 94
--- NOTE | 2019-09-27 12:40 | NUR ---
Pt continues to rest. Pt having nausea, but refusing medication. O2 continues at 2 liters via nasal canula. Will continue to monitor.
[2019-09-27 12:55] VITALS: BP 98/80; PULSE 88
--- NOTE | 2019-09-27 12:55 | NUR ---
Pt continues to rest. Denies needs at this time. O2 discontinued will continue to monitor.
[2019-09-27 13:10] VITALS: BP 106/62; PULSE 92
--- NOTE | 2019-09-27 13:10 | NUR ---
Discharge instructions reviewed. Pt voices understanding. Port deaccessed with all parts intact. Port flushed with 10ml NS followed by Heprin 500units. Bandaid placed at site. Pt up to dress. Call light within reach.
--- NOTE | 2019-09-27 13:25 | NUR ---
Pt escorted to private car via wheel chair. Pt accompanied home by her friend.
[2019-09-27 16:55] VITALS: BP 105/64; PULSE 87; TEMP 98.4
== END 2019-09-27 13:25 | disposition home or self-care (01) ==
LOC: SDCO 09:12
DX: N13.1 Hydronephrosis with ureteral stricture, not elsewhere classified (principal); C79.89 Secondary malignant neoplasm of other specified sites; Z90.49 Acquired absence of other specified parts of digestive tract; Z90.710 Acquired absence of both cervix and uterus; Z98.51 Tubal ligation status; Z87.891 Personal history of nicotine dependence; Z88.5 Allergy status to narcotic agent; Z88.8 Allergy status to other drugs, medicaments and biological substances; Z79.899 Other long term (current) drug therapy; E89.0 Postprocedural hypothyroidism
CPT/HCPCS: C1769; C2617; J0330; J0690; J1644; J2250; J2405; J2704; J7120

== ENCOUNTER 2020-02-25 10:10 | Day surgery (SDC) | payer BC, MEDICARE ==
[~2020-02-25] VITALS: Ht 167.6 cm; Wt 121.1 kg
[~2020-02-25 10:10] MED LIST changes: +GEMZAR; +NEULASTA 66 MG/0.6 M SQ; +[UNRECOGNIZED DRUG - OTHER]
[2020-02-25 11:09] VITALS: BP 150/112; PULSE 94; TEMP 98.1
[2020-02-25] MEDS ORDERED: CYMBALTA 60MG60 MG PO (11:28)
--- NOTE | 2020-02-25 12:30 | NUR ---
The patient ambulated to the bathroom with the stand by assistance of one nurse and appeared to tolerate the activity well. The patient voided without difficulty and ambulated back to her room independently.
[2020-02-25 16:00] VITALS: BP 105/83; PULSE 80; TEMP 97.8
--- NOTE | 2020-02-25 16:00 | NUR ---
The patient ambulated back to [place] [facility] from the recovery room at this time. The patient appears alert and oriented and denies any pain or nausea at this time. The patient requests to try a muffin and ice water at this time. The patient's post operative vital signs were started at this time. Call light is within reach. The patient denies any further needs. Will continue to monitor the patient.
[2020-02-25 16:15] VITALS: BP 118/85; PULSE 73
--- NOTE | 2020-02-25 16:15 | NUR ---
The patient appears to be tolerating the food and drink well. The patient continues to deny any pain or nasuea at this time. The patient's vital signs appear stable. Will continue to monitor the patient.
[2020-02-25 16:30] VITALS: BP 124/88; PULSE 77
--- NOTE | 2020-02-25 16:30 | NUR ---
The patient ambulated to the bathroom independently using a steady gait and appeared to tolerate the activity well. The nurse instructed the patient that if she successfully voided she could come back to her room and get dressed then notify the staff when she is ready to review her discharge paperwork.
--- NOTE | 2020-02-25 16:40 | NUR ---
Discharge instructions were reviewed with the patient at this time. She verbalized understanding and has no questions for the nurse at this time. The patient's IV to her right anecubital was removed and a pressure dressing was applied to the site. The patient is dressed and ready to be escorted out. Dr. Parker stopped over to check on the patient prior to discharge.
--- NOTE | 2020-02-25 16:45 | NUR ---
The patient ambulated out to the ER entrance using a steady gait to meet her son who will be driving her home via private vehicle. The patient's belongings and discharge paperwork were sent with her.
== END 2020-02-25 16:45 | disposition home or self-care (01) ==
LOC: SDCO 10:10
DX: N13.1 Hydronephrosis with ureteral stricture, not elsewhere classified (principal); C78.7 Secondary malignant neoplasm of liver and intrahepatic bile duct; C78.02 Secondary malignant neoplasm of left lung; C78.01 Secondary malignant neoplasm of right lung; C78.6 Secondary malignant neoplasm of retroperitoneum and peritoneum; C56.9 Malignant neoplasm of unspecified ovary; K21.9 Gastro-esophageal reflux disease without esophagitis; E89.0 Postprocedural hypothyroidism; K22.70 Barrett's esophagus without dysplasia; F41.9 Anxiety disorder, unspecified; F32.9 Major depressive disorder, single episode, unspecified; Z20.828 Contact with and (suspected) exposure to other viral communicable diseases; Z79.899 Other long term (current) drug therapy; Z90.710 Acquired absence of both cervix and uterus; Z90.49 Acquired absence of other specified parts of digestive tract; Z98.51 Tubal ligation status; Z87.891 Personal history of nicotine dependence; Z88.6 Allergy status to analgesic agent; Z88.5 Allergy status to narcotic agent; Z88.8 Allergy status to other drugs, medicaments and biological substances
CPT/HCPCS: C1769; C2617; J0690; J1100; J2704; J3010; J7120

== ENCOUNTER 2020-04-25 16:51 | Inpatient (IN) | payer BC, MEDICARE ==
[~2020-04-25] VITALS: Ht 167.6 cm; Wt 113.8 kg
[~2020-04-25 16:51] MED LIST changes: +CYMBALTA 60MG60 MG PO
[2020-04-25 18:54] LABS: BASO % 0.3 % (0.0-2.0); GRAN # 9.3 (1.4-6.5); GRAN % 85.4 % (42.2-75.2); HEMATOCRIT 37.7 % (37.0-47.0); HEMOGLOBIN 12.2 g/dl (12.5-16.0); LYMPH # 0.9 (1.2-3.4); MEAN CELL VOLUME 92 fl (80.0-100.0); MEAN CORPUSCULAR HEMOGLOBIN 30 pg (27.0-31.0); MEAN CORPUSCULAR HGB CONC 32 g/dl (33.0-37.0); MEAN PLATELET VOLUME 10.5 fl (7.4-10.4); MONO # 0.6 (0.1-0.6); MONO % 5.1 % (1.7-9.3); PLATELET COUNT 141 K/mm3 (130-400); RED BLOOD COUNT 4.09 M/mm3 (4.10-5.30); REDCELL DISTRIBUTION WIDTH-CV 15.2 % (11.5-14.5)
[2020-04-25 18:57] LABS: ALANINE AMINOTRANSFERASE 17 U/L (4-34); ALBUMIN 3.7 gm/dL (3.5-5.0); ALKALINE PHOSPHATASE 127 U/L (50-136); ANION GAP 7 mmol/L (7-16); AST,SGOT 18 U/L (15-37); BILIRUBIN,TOTAL 0.9 mg/dL (0.0-1.0); BLOOD UREA NITROGEN 13 mg/dL (7-17); CALCIUM 8.3 mg/dL (8.4-10.2); CARBON DIOXIDE 31 mmol/L (22-30); CHLORIDE 94 mmol/L (98-107); CREATININE, serum 0.81 (0.52-1.25); GLUCOSE 122 mg/dL (74-106); POTASSIUM 3.7 mmol/L (3.4-5.0); SODIUM 132 mmol/L (137-145); TOTAL PROTEIN 7.5 gm/dL (6.4-8.2)
[2020-04-25 19:07] LABS: TROPONIN-I < 0.012 ng/mL (0.000-0.035)
[2020-04-25 19:24] LABS: COLLECTION METHOD CLEAN CATCH
[2020-04-25 19:32] LABS: BUDDING YEAST Present /hpf; MUCOUS Present /lpf; PH 7 (5-8); URINE APPEARANCE Turbid; URINE BACTERIA Occasional /hpf; URINE BILIRUBIN Negative (NEGATIVE); URINE BLOOD 1+ (NEGATIVE); URINE COLOR Amber; URINE GLUCOSE Negative (NEGATIVE); URINE KETONE Negative (NEGATIVE); URINE LEUKOCYTE ESTERASE 3+ (NEGATIVE); URINE NITRATE Positive (NEGATIVE); URINE PROTEIN(semi-quant) 2+ (NEGATIVE); URINE RBC >50 /hpf; URINE UROBILINOGEN Negative (NEGATIVE)
[2020-04-25] MEDS ORDERED: METAXALL800 MG PO (20:59)
[2020-04-25] MEDS ORDERED: DESYREL 50MG50 MG PO (21:00)
[2020-04-25] MEDS ORDERED: PHENERGAN 25 TA25 MG PO (21:00)
[2020-04-25] MEDS ORDERED: OXYCONTIN15 MG PO (21:01)
[2020-04-25] MEDS ORDERED: COLACE 100100 MG/CAP PO (21:02)
--- NOTE | 2020-04-25 22:00 | NUR ---
Received patient via stretcher from ER. She is alert, oriented and independent. She's on droplet/contact precaution. With portacath on her left chest. She is afebrile. She denies pain. Call light within reach.
[2020-04-25 22:29] VITALS: BP 135/90; PULSE 103; TEMP 99.2
--- NOTE | 2020-04-25 23:45 | NUR ---
Assesment and Med rec completed. Patient states she feels cold. Provided with warm blanket. She is afebrile. She is tachycardic. Instructed her that she's on clear liquids.
[2020-04-25 23:51] VITALS: BP 133/79; PULSE 117; TEMP 98.5
[2020-04-26] VITALS (7 sets, daily range): BP systolic 98–124; BP diastolic 44–81; PULSE 93–110; TEMP 97.8–102.4
--- NOTE | 2020-04-26 01:10 | NUR ---
Patient complains of body pain with pain score of 4/10. Verified to Dr. Lewis if he wants the Oxycontin to be 15mg Q12 since that is the home meds of the patient and he said to continue what is ordered which is 10mg Q8.
--- NOTE | 2020-04-26 03:39 | NUR ---
LA took her vital signs and her temp was at 102.4F. Rechecked patient's temp after assisting her in the bathroom and it was at 99.5F. Re-checked it again with a different thermometer and she was at 100.1F. She reports headache and still with body pain. She refuses to take Tylenol for the headache. Informed her that I will recheck her temperature again.
--- NOTE | 2020-04-26 06:48 | NUR ---
She was febrile this morning at 101.9F. Tylenol given. Still with mild generalized pain.
--- NOTE | 2020-04-26 07:00 | NUR ---
Report received from Gris, PT resting with eyes closed, will continue to monitor.
[2020-04-26 07:14] LABS: HEMOGLOBIN 10.5 g/dl (12.5-16.0); MEAN CELL VOLUME 90 fl (80.0-100.0); MEAN CORPUSCULAR HEMOGLOBIN 29 pg (27.0-31.0); MEAN CORPUSCULAR HGB CONC 32 g/dl (33.0-37.0); MEAN PLATELET VOLUME 10.3 fl (7.4-10.4); PLATELET COUNT 104 K/mm3 (130-400); RED BLOOD COUNT 3.61 M/mm3 (4.10-5.30)
[2020-04-26 07:25] LABS: HEMATOCRIT 32.6 % (37.0-47.0)
[2020-04-26 09:51] LABS: BAND 27 % (0-10); LYMPHOCYTE 15 % (20.0-51.0); NEUTROPHILS 55 % (42.0-75.2)
[2020-04-26 09:52] LABS: HYPOCHROMIA 1+; PLATELET ESTIMATE DECREASED (NORMAL)
--- NOTE | 2020-04-26 10:09 | NUR ---
Assessmetn charted.Pt awake and alert but states she is sleepy and hard to stay awake when no one in room. Pt is diaphoretic, intermittently nauseated and vomiting before arrival here last night. Resting in bed. IVF to PAC in [place]. Denies pain, will conitneu to monitor.
[2020-04-26 13:29] LABS: CALCIUM 7.9 mg/dL (8.4-10.2); CREATININE, serum 0.7 (0.52-1.25); POTASSIUM 3.6 mmol/L (3.4-5.0)
--- NOTE | 2020-04-26 14:50 | NUR ---
SW contacted patient by phone to complete intake assessment. Patient did not answer when room number was called however she did answer when her personal number was called [phone]. Patient indicated that she lives in [facility] alone. Patient reports her son Saurabh as her care support and EMR, however she did not know his phone number. Medical notes list Alexandra [phone]. Patient indicated that she was pretty independent with ADL's and that she does have a dPOA. Patient reports she does not use any DME, and that her PCP is Dr. Stacy, she notes she does have an upcoming appointment in a few weeks. Patient reports that she gets her medications from [email or web address] in [place] with no concerns. Patient declined HHS at this time, however indicated that she does have some difficulties after receiving chemo treatment. SW will continue to follow.
--- NOTE | 2020-04-26 17:18 | NUR ---
PT has had low grade fevers today, up to shower in room independently and states it felt good to shower. Back in bed resting between disturbances denies pain beyond low head ache that has persisted. Anticipating general diet this evening. Family updated over shift. Will give bedside shift report to nightshift nurse who will resume care.
--- NOTE | 2020-04-26 19:05 | NUR ---
Received report from Chayo. Seen patient awake, lying in bed. She reports she doesn't like her dinner. Offered sandwich box and she agreed.
--- NOTE | 2020-04-26 22:50 | NUR ---
Covid result came back negative. Informed Alee NEAL via phone call and informed Margareth bernardowarehouse handler and Quiana SAINZ. Patient will be transferred to [facility].
--- NOTE | 2020-04-26 23:00 | NUR ---
Informed patient that her Covid result is negative and we have to transfer her to rm. 359. Upon arriving in her new room she states she feels nauseous. She thinks it's because of the food she ate awhile ago. Asked her if she wants Phenergan and she said yes.
--- NOTE | 2020-04-26 23:50 | NUR ---
Patient had one episode of vomiting. Phenergan given.
[2020-04-27] VITALS (7 sets, daily range): BP systolic 102–112; BP diastolic 60–65; PULSE 78–101; TEMP 98.1–101.2
[2020-04-27 06:22] LABS: MEAN CELL VOLUME 91 fl (80.0-100.0); MEAN CORPUSCULAR HGB CONC 31 g/dl (33.0-37.0); MEAN PLATELET VOLUME 10.8 fl (7.4-10.4); PLATELET COUNT 101 K/mm3 (130-400); RED BLOOD COUNT 3.28 M/mm3 (4.10-5.30); REDCELL DISTRIBUTION WIDTH-CV 15.1 % (11.5-14.5)
[2020-04-27 06:27] LABS: HEMATOCRIT 29.9 % (37.0-47.0); HEMOGLOBIN 9.3 g/dl (12.5-16.0); MEAN CORPUSCULAR HEMOGLOBIN 28 pg (27.0-31.0)
--- NOTE | 2020-04-27 06:36 | NUR ---
Patient had febrile episode of 101.2F. Lates temp was 99.9F. She was happy to move to regular room. No episode of nausea/vomiting after Phenergan was given.
--- NOTE | 2020-04-27 07:00 | NUR ---
Report received from ALISTAIR Landry. PT in bed resting, denies needs, will continue to moniotr.
[2020-04-27 08:43] LABS: BAND 7 % (0-10); EOSINOPHIL 2 % (0-4); LYMPHOCYTE 21 % (20.0-51.0); NEUTROPHILS 56 % (42.0-75.2)
[2020-04-27 08:44] LABS: ANISOCYTOSIS 1+; HYPOCHROMIA 2+; PLATELET ESTIMATE DECREASED (NORMAL)
--- NOTE | 2020-04-27 13:02 | NUR ---
Pt resting today, updated daughter regarding plan to have stents exchanged tomorrow with Dr. Parker. Resting quietly, assessment charted, denies pain, will conitnue to monitor.
[2020-04-27] MEDS ORDERED: KLONOPIN 1MG1 MG PO (16:02)
--- NOTE | 2020-04-27 19:51 | NUR ---
Pt has done well today, up this afternoon to shower, resting in chair at side of bed, denies needs, PRN pain meds give nand anxiety meds given per request, bedside shift report given to Marni SAINZ who will resume care.
--- NOTE | 2020-04-27 20:10 | NUR ---
Pt assessment completed and documented. Pt currently resting in bed watching television. Alert and oriented x4. Reports 3/10 pain to her hips and back which pt states is chronic for her. Denies the need for pain medication at this time. States she takes pain medication when pain is around a 6/10 because thats when she starts to feel uncomfortable. IVF infusing per orders to portacath. Pt denies any needs/concerns. Call light within reach. Will continue to monitor
[2020-04-28] VITALS (11 sets, daily range): BP systolic 89–138; BP diastolic 50–83; PULSE 59–89; TEMP 97.7–98.9
--- NOTE | 2020-04-28 07:04 | NUR ---
Pt had uneventful night. PRN pain medication given x1 for left pelvic pain/back pain and a headache. Portacath to left chest CDI. IVF infusing per orders. Currently resting in bed. Call light within reach.
--- NOTE | 2020-04-28 07:21 | NUR ---
Report given to ALISTAIR Bell
[2020-04-28 07:37] LABS: BASO % 0.4 % (0.0-2.0); EOS # 0.1 (0.0-0.7); EOS % 3.1 % (0-4.0); GRAN # 1.5 (1.4-6.5); GRAN % 60.1 % (42.2-75.2); LYMPH # 0.8 (1.2-3.4); LYMPH % 29.3 % (20.0-51.0); MEAN CELL VOLUME 93 fl (80.0-100.0); MEAN CORPUSCULAR HGB CONC 32 g/dl (33.0-37.0); MEAN PLATELET VOLUME 10.4 fl (7.4-10.4); MONO # 0.2 (0.1-0.6); MONO % 6.3 % (1.7-9.3); PLATELET COUNT 96 K/mm3 (130-400); RED BLOOD COUNT 3.27 M/mm3 (4.10-5.30)
[2020-04-28 07:39] LABS: HEMATOCRIT 30.5 % (37.0-47.0); HEMOGLOBIN 9.7 g/dl (12.5-16.0); MEAN CORPUSCULAR HEMOGLOBIN 30 pg (27.0-31.0)
[2020-04-28 07:44] LABS: CALCIUM 7.9 mg/dL (8.4-10.2); CREATININE, serum 0.64 (0.52-1.25); POTASSIUM 3.3 mmol/L (3.4-5.0)
--- NOTE | 2020-04-28 09:17 | NUR ---
Pt down for procedure at this time by bed. Preop fluids hung, no further needs.
--- NOTE | 2020-04-28 10:35 | NUR ---
Pt assessment completed and charted. Pt down for procedure this morning. Pt A&O, independent in room, on room air, breathing is even and unlabored. Pt up to recliner, ambulated w/ PT. Pt denies pain, N/V/D at this time, "not since yesterday". Pt has lt chest port that flushes well and good blood return. LS cta, HRRR, BS active. No edema present. Pt denies needs at this time.
--- NOTE | 2020-04-28 11:24 | NUR ---
Pt back from procedure, drowsy, "tired" per pt, but A&O, VSS, post op monitoring in progress. No needs at this time.
--- NOTE | 2020-04-28 17:55 | NUR ---
Patient complained of pain 7 out of 10 to her left leg. Per patient request, PRN Oxycodone and PRN Klonopin PO given at 1745. Will continue to monitor pain and anxiety level.
--- NOTE | 2020-04-28 20:48 | NUR ---
Pt assessment complete. Pt is sitting up in bed watching television. She is A/O x4. Her breathing is even and unlabored on RA. No SOB at this time. Pain to R abdomen, hips 7/10 One time dose of Dilaudid given. POC discussed with patient who verbalizes understanding. Heating pack on at this time. Kpad offered. No N/V at this time. Reports no appetite, denies need for anything PO at this time. Medications infusing through PAC without issues. Call light within reach.
--- NOTE | 2020-04-29 01:37 | NUR ---
PRN Tylenol administered for Headache.
[2020-04-29 04:29] VITALS: BP 107/68; PULSE 66; TEMP 98.1
--- NOTE | 2020-04-29 06:25 | NUR ---
Pt rested well through the night. Did report abdominal pain and headache early on. Relieved with PRN pain medications. No N/V, but did report lack of appetite. She was afebrile during the night. NO needs at this time. Call light within reach.
[2020-04-29 07:00] LABS: BASO % 1.1 % (0.0-2.0); EOS # 0.1 (0.0-0.7); EOS % 4.9 % (0-4.0); GRAN # 1.2 (1.4-6.5); GRAN % 43.5 % (42.2-75.2); LYMPH # 1.2 (1.2-3.4); LYMPH % 43.4 % (20.0-51.0); MEAN CELL VOLUME 93 fl (80.0-100.0); MEAN CORPUSCULAR HGB CONC 31 g/dl (33.0-37.0); MEAN PLATELET VOLUME 10.9 fl (7.4-10.4); MONO # 0.2 (0.1-0.6); MONO % 6.4 % (1.7-9.3); PLATELET COUNT 119 K/mm3 (130-400); RED BLOOD COUNT 3.47 M/mm3 (4.10-5.30); REDCELL DISTRIBUTION WIDTH-CV 14.8 % (11.5-14.5)
[2020-04-29 07:05] LABS: HEMATOCRIT 32.1 % (37.0-47.0); HEMOGLOBIN 9.9 g/dl (12.5-16.0); MEAN CORPUSCULAR HEMOGLOBIN 29 pg (27.0-31.0)
[2020-04-29 07:24] LABS: CALCIUM 8.5 mg/dL (8.4-10.2); CREATININE, serum 0.63 (0.52-1.25); MAGNESIUM 1.4 mg/dL (1.6-2.3); POTASSIUM 3.8 mmol/L (3.4-5.0)
[2020-04-29 07:54] VITALS: BP 117/78; PULSE 78; TEMP 97.1
[2020-04-29] MEDS ORDERED: MACROBID 1100 MG/CAP PO (08:48)
--- NOTE | 2020-04-29 09:29 | NUR ---
Pt assesment completed and charted. Medications administered per aug. Pt A&O, independent in room. Pt denies any dizziness, N/V/D, pain, chest pain, abdominal pain, numbness or tingling. Prior to aide obtaining VS, pt fell this morning getting up to go to the bathroom. Pt stated she "got up out of bed, turned to go to the bathroom and decided to meet the floor". Pt called nurses station to state she fell, was sitting on EOB naked, wrapped in blanket, socks off. Pt denied hitting head, VS obtained, stable BP: 117/78... HR: 78... RR: 16... O2: 98% on room air. Pt denied pain. Pt states she "fell to her hands and knees". Pt removed socks during night. Pt denied dizziness. Report filed. No further needs. Pt A&O. Rt chest port in place, zosyn running w/o complications. LS cta, HRRR, BS active, pulses strong bilaterally. No further needs expressed. Pt to discharge home this afternoon.
--- NOTE | 2020-04-29 11:07 | NUR ---
First visit from the duplicating machine servicer. No needs right now.
[2020-04-29 12:01] VITALS: BP 114/69; PULSE 79; TEMP 97.9
[2020-04-29 14:13] VITALS: BP 120/73; PULSE 73
--- NOTE | 2020-04-29 15:23 | NUR ---
Pt discharge instructions discussed and reviewed w/ patient by charge nurse Stephanie, ALISTAIR. All questions answered. Port deaccessed, heparanized. No further needs. Pt was a little unhappy towards end of stay due to "inadeqaute staffing". Pt IV pump beeping for a long time, this nurse was never notified. Pt ride arrived and this nurse was also not notified, therefore pt not ready to go at that time. Pt had asked to speak to this nurse or charge nurse. This nurse was never notified. Charge was eventually notified and discussed situation w/ patient. Pt stated on her way out that she wasn't "unhappy w/ the nurse, just how short staffed you are". Pt escorted out via WC by LA Santana.
--- NOTE | 2020-04-29 15:34 | NUR ---
Ibm Bpm Architect collaborated with MARTELL Holly who advised patient would benefit from a front wheeled walker. LY met with patient who states she would like to order FWW through [facility]. SW faxed referral and order to [facility]. Patient to discharge home today and will pick pulling machine tender walker at 1500. Patient states her son Saurabh will be here to pick her up and will take her by [facility] to get walker. No additional needs at this time.
== END 2020-04-29 15:27 | disposition home or self-care (01) | DRG 698 ==
LOC: COL.ER 16:51 → MEDICAL 19:59
PROVIDERS: Emergency Medicine; Physician Assistant; Urology; ADMIT Hospitalist
PROC: 0T2BX0Z Change Drainage Device in Bladder, External Approach (ICD-10-PCS; principal; 2020-04-28 10:00)
DX: T83.518A Infection and inflammatory reaction due to other urinary catheter, initial encounter (principal); A41.9 Sepsis, unspecified organism; E87.1 Hypo-osmolality and hyponatremia; N13.6 Pyonephrosis; Y83.8 Other surgical procedures as the cause of abnormal reaction of the patient, or of later complication, without mention of misadventure at the time of the procedure; D69.6 Thrombocytopenia, unspecified; E83.42 Hypomagnesemia; E87.6 Hypokalemia; D64.9 Anemia, unspecified; Z20.828 Contact with and (suspected) exposure to other viral communicable diseases; R53.81 Other malaise; Z03.89 Encounter for observation for other suspected diseases and conditions ruled out; Z85.05 Personal history of malignant neoplasm of liver; Z85.89 Personal history of malignant neoplasm of other organs and systems
CPT/HCPCS: 99223-AI; 99231-AI; 99232-AI; 99233-AI; 99239; C1769; C2617; J0690; J0696; J1170; J1650; J2543; J2550; J2704; J3010; J3475; J3480; J7030; Q9967

== ENCOUNTER 2020-07-11 18:08 | Emergency (ER) | payer BC ==
[~2020-07-11] VITALS: Ht 167.6 cm; Wt 115.9 kg
[~2020-07-11 18:08] MED LIST changes: +COLACE 100100 MG/CAP PO; +DESYREL 50MG50 MG PO; +KLONOPIN 1MG1 MG PO; +MACROBID 1100 MG/CAP PO; +METAXALL800 MG PO; +OXYCONTIN15 MG PO
[2020-07-11 18:12] VITALS: TEMP 98
[2020-07-11 18:48] LABS: BASO % 0.2 % (0.0-2.0); EOS # 0.1 (0.0-0.7); GRAN # 3.4 (1.4-6.5); HEMOGLOBIN 11.4 g/dl (12.5-16.0); LYMPH # 1.9 (1.2-3.4); LYMPH % 32.4 % (20.0-51.0); MEAN CELL VOLUME 90 fl (80.0-100.0); MEAN CORPUSCULAR HEMOGLOBIN 30 pg (27.0-31.0); MEAN CORPUSCULAR HGB CONC 33 g/dl (33.0-37.0); MEAN PLATELET VOLUME 9.1 fl (7.4-10.4); MONO # 0.4 (0.1-0.6); MONO % 7.1 % (1.7-9.3); PLATELET COUNT 235 K/mm3 (130-400); RED BLOOD COUNT 3.87 M/mm3 (4.10-5.30); REDCELL DISTRIBUTION WIDTH-CV 16.7 % (11.5-14.5)
[2020-07-11 19:01] LABS: ALBUMIN 3.9 gm/dL (3.5-5.0); BILIRUBIN,TOTAL 0.6 mg/dL (0.0-1.0); C-REACTIVE PROTEIN 1.5 mg/dL (0.0-0.9); CALCIUM 9.1 mg/dL (8.4-10.2); CREATININE, serum 0.71 (0.52-1.25); POTASSIUM 3.6 mmol/L (3.4-5.0); TOTAL PROTEIN 7.6 gm/dL (6.4-8.2)
[2020-07-11 19:04] LABS: COLLECTION METHOD CATHETER
[2020-07-11 19:16] LABS: PH 8 (5-8); SQUAMOUS EPITHELIAL None Seen /hpf; URINE APPEARANCE Cloudy; URINE BACTERIA None Seen /hpf; URINE BILIRUBIN Negative (NEGATIVE); URINE BLOOD 1+ (NEGATIVE); URINE COLOR Yellow; URINE GLUCOSE Negative (NEGATIVE); URINE KETONE Negative (NEGATIVE); URINE LEUKOCYTE ESTERASE 3+ (NEGATIVE); URINE NITRATE Positive (NEGATIVE); URINE PROTEIN(semi-quant) 2+ (NEGATIVE); URINE RBC 20-50 /hpf; URINE UROBILINOGEN Negative (NEGATIVE)
[2020-07-11] MEDS ORDERED: CIPRO 500MG TA500 MG PO (20:16)
[2020-07-11 22:37] VITALS: BP 128/79; PULSE 86
== END 2020-07-11 22:45 | disposition home or self-care (01) ==
LOC: COL.ER 18:08
PROVIDERS: Nurse Practitioner
DX: N39.0 Urinary tract infection, site not specified (principal); K64.9 Unspecified hemorrhoids; C48.2 Malignant neoplasm of peritoneum, unspecified; C78.7 Secondary malignant neoplasm of liver and intrahepatic bile duct; C78.00 Secondary malignant neoplasm of unspecified lung; Z87.891 Personal history of nicotine dependence; Z90.49 Acquired absence of other specified parts of digestive tract; Z90.710 Acquired absence of both cervix and uterus; Z88.6 Allergy status to analgesic agent; Z88.8 Allergy status to other drugs, medicaments and biological substances; Z79.890 Hormone replacement therapy
CPT/HCPCS: J2060; J2550; J3010; J7030; Q9967

== ENCOUNTER 2020-07-15 19:59 | Observation (INO) | payer BC, MEDICARE ==
[~2020-07-15] VITALS: Ht 167.6 cm; Wt 114.2 kg
[~2020-07-15 19:59] MED LIST changes: +CIPRO 500MG TA500 MG PO
[2020-07-15 20:45] LABS: COLLECTION METHOD CLEAN CATCH
[2020-07-15 20:48] LABS: BASO % 0.4 % (0.0-2.0); EOS # 0.2 (0.0-0.7); EOS % 1.9 % (0-4.0); GRAN # 4.3 (1.4-6.5); GRAN % 55.6 % (42.2-75.2); HEMATOCRIT 38.5 % (37.0-47.0); HEMOGLOBIN 12.3 g/dl (12.5-16.0); LYMPH # 2.6 (1.2-3.4); LYMPH % 33.6 % (20.0-51.0); MEAN CELL VOLUME 91 fl (80.0-100.0); MEAN CORPUSCULAR HEMOGLOBIN 29 pg (27.0-31.0); MEAN CORPUSCULAR HGB CONC 32 g/dl (33.0-37.0); MONO # 0.6 (0.1-0.6); MONO % 8.2 % (1.7-9.3); PLATELET COUNT 307 K/mm3 (130-400); RED BLOOD COUNT 4.21 M/mm3 (4.10-5.30); REDCELL DISTRIBUTION WIDTH-CV 17.9 % (11.5-14.5)
[2020-07-15 20:58] LABS: BUDDING YEAST Present /hpf; MUCOUS Present /lpf; PH 7 (5-8); URINE APPEARANCE Cloudy; URINE BACTERIA None Seen /hpf; URINE BILIRUBIN Negative (NEGATIVE); URINE BLOOD 1+ (NEGATIVE); URINE COLOR Yellow; URINE GLUCOSE Negative (NEGATIVE); URINE KETONE Negative (NEGATIVE); URINE LEUKOCYTE ESTERASE 3+ (NEGATIVE); URINE NITRATE Negative (NEGATIVE); URINE PROTEIN(semi-quant) 2+ (NEGATIVE); URINE RBC >50 /hpf; URINE UROBILINOGEN Negative (NEGATIVE)
[2020-07-15 21:01] LABS: PROTHROMBIN TIME 11.2 SECONDS (9.7-12.8)
[2020-07-15 21:11] LABS: ALANINE AMINOTRANSFERASE 28 U/L (4-34); ALKALINE PHOSPHATASE 87 U/L (50-136); ANION GAP 7 mmol/L (7-16); AST,SGOT 23 U/L (15-37); BILIRUBIN,TOTAL 0.7 mg/dL (0.0-1.0); BLOOD UREA NITROGEN 11 mg/dL (7-17); C-REACTIVE PROTEIN 2.7 mg/dL (0.0-0.9); CARBON DIOXIDE 31 mmol/L (22-30); CHLORIDE 101 mmol/L (98-107); CREATININE, serum 0.69 (0.52-1.25); GLUCOSE 117 mg/dL (74-106); LIPASE 29 U/L (23-300); POTASSIUM 3.7 mmol/L (3.4-5.0); SODIUM 139 mmol/L (137-145); TOTAL PROTEIN 8.1 gm/dL (6.4-8.2)
[2020-07-15 21:20] LABS: TROPONIN-I < 0.012 ng/mL (0.000-0.035)
[2020-07-15 23:38] VITALS: BP 139/92; PULSE 112; TEMP 98.7
[2020-07-16] VITALS (12 sets, daily range): BP systolic 117–146; BP diastolic 73–93; PULSE 18–106; TEMP 97.8–98.2
--- NOTE | 2020-07-16 00:08 | NUR ---
Port to lt. chest accessed at this time. Pt. reported that a 1.25 in. needle is usually used. We did not have that size. 1.5 in. hubber needle used. The port was located in the lt. chest. With aseptic technique, the area was prepped. 1.5 in. Hubber needle used to access port. Positive blood return noted. Clorhexidine antimicrobial disk applied. 2X2 drain sponges applied d/t length of needle. Dressed with tegaderm and paper tape. Pt. tolerated well.
--- NOTE | 2020-07-16 00:10 | NUR ---
PT ARRIVED TO FLOOR VIA WHEELCHAIR, ACCOMPANIED BY PROBATE JUDGE. PT STILL HAD C/O PAIN RATED AT 8/10 GAVE PRN PAIN MEDICATION. PT AWARE NPO FOR SURGERY PROCEDURE IN AM. GAVE SPRITE BEFORE MIDNIGHT. PT A/O X4, GAIT STEADY, NO SKIN ISSUES. ACCESSED PORT TO LEFT, REMOVED IV ON RIGHT AC. PT WILL BE HIGH FALL RISK DUE TO PREVIOUS FALL. PT IS AWARE. PT HAS NO FURTHER NEEDS, CALL LIGHT WITHIN REACH AND BED ALARM ON. PT STATED THAT SHE WANTS TO BE A FULL CODE.
[2020-07-16] MEDS ORDERED: DAZIDOX20 MG PO (00:26)
[2020-07-16] MEDS ORDERED: FOLIC ACID 11 MG/TA1 PO (00:34)
[2020-07-16] MEDS ORDERED: ABILIFY5 MG PO (00:35)
[2020-07-16] MEDS ORDERED: ALIMTA100 MG IV (00:37)
[2020-07-16] MEDS ORDERED: VIT B12 IV (00:40)
--- NOTE | 2020-07-16 08:45 | NUR ---
Contacted Dr. Elise about consult. Patient has good blood return and port flushes without difficulties. Ok to continue use per . No new orders at this time.
--- NOTE | 2020-07-16 09:31 | NUR ---
Initial visit; Patient thanked Milk Bottler for looking in on her and offering God's blessings.
--- NOTE | 2020-07-16 12:20 | NUR ---
Patient called out to nurses station, states she is feeling anxious medications given per orders.
--- NOTE | 2020-07-16 13:00 | NUR ---
Patient showered independently, denies needs at this time.
--- NOTE | 2020-07-16 15:01 | NUR ---
Bulk Tank Driver met with the patient to complete intake. The patient lives in [place] with her son. The patient has a walker and is independent. The patient's PCP is Dr. Stacy and receives medications from the [facility] in . The patient does not have advanced directives in the EMR but states they are complete and designate her daughter, Alexandra Cárdenas. The patient plans to return home at discharge with Alexandra providing transportation. There are no additional needs at this time.
--- NOTE | 2020-07-16 17:20 | NUR ---
Patient up from OR. Alert and oriented x 3. Denies pain. Post op VSS. Patient up to restroom, steady gait with SBA. No further needs at this time.
--- NOTE | 2020-07-16 19:00 | NUR ---
Patient has done well since back from surgery. Pain medication given d/t back pain 01/19. Patient tolerating diet without difficulties. Denies further needs at this time. Will report off to shift production associate. Heating pad provided for back pain.
--- NOTE | 2020-07-16 21:00 | NUR ---
Patient resting in bed on post op vitals. VSS. She is on oxygen via nasal cannula. Some complaints of pain in her back. She is using a K pad for her back. No other needs at this time. Call light in reach.
--- NOTE | 2020-07-17 00:42 | NUR ---
Patient has complaints of pain and nausea. Oxycodone and Phenergen administered. Tylenol given for a headache. Will check on patient to see if this helps.
[2020-07-17 04:18] VITALS: BP 117/77; PULSE 102; TEMP 97.3
--- NOTE | 2020-07-17 06:30 | NUR ---
Patient resting in bed this morning. Having complaints of pain to her pelvic area and back. K pad on her back. Oxycodone administered. No other needs at this time. Will report to day shift.
[2020-07-17 07:00] VITALS: BP 124/78; PULSE 101; TEMP 97.9
--- NOTE | 2020-07-17 07:30 | NUR ---
Patient sitting up in recliner eating breakfast. Alert and oriented x 3. Assessment complete. States pain at baseline at this time. States she does continue to have pain at port site, port continues to flush without difficulties, blood return noted. Denies further needs at this time.
[2020-07-17 12:14] VITALS: BP 130/86; PULSE 90; TEMP 97.8
--- NOTE | 2020-07-17 13:31 | NUR ---
Pt sitting in the chair upon arrival. Port deaccessed at 1325 by this student. Prior to deacccess port was flushed with 10 ml of NS with blood return and 500 units of Heparin. Pt tolerated well. Call light and personal items in reach.
--- NOTE | 2020-07-17 15:00 | NUR ---
Patient doing well throughout the day, independent in room. Pain medications given throughout the day for back pain. Port deaccessed by RN student and instructor. Dressing CDI. Discharge education provided to patient. Educated on stent and when to call provider. Patient will stop by office for pain medication script. Denies further needs at this time. Patient out by wheelchair with surgical staff.
== END 2020-07-17 15:00 | disposition home or self-care (01) ==
LOC: COL.ER 19:59 → SURG 22:03
PROVIDERS: Emergency Medicine; ADMIT Urology
DX: N13.1 Hydronephrosis with ureteral stricture, not elsewhere classified (principal); Z90.49 Acquired absence of other specified parts of digestive tract; Z90.710 Acquired absence of both cervix and uterus; Z87.891 Personal history of nicotine dependence; Z88.5 Allergy status to narcotic agent; Z88.8 Allergy status to other drugs, medicaments and biological substances; Z20.822 Contact with and (suspected) exposure to COVID-19; K21.9 Gastro-esophageal reflux disease without esophagitis; G89.29 Other chronic pain
CPT/HCPCS: C1758; C1769; C2617; G0378; J0690; J0696; J1170; J2060; J2704; J3010; J7030; Q9967

== ENCOUNTER → 2020-08-06 | Outpatient (CLI) | payer BC, MEDICARE ==
[~2020-08-06] MED LIST changes: +ABILIFY5 MG PO; +ALIMTA100 MG IV; +ASPIRIN 32325 MG/TAB PO; +BACTRIM DS 8001 TAB PO; +CBD GUMMIES PO; +CLARITIN REDIT; +DAZIDOX20 MG PO; +FOLIC ACID 11 MG/TA1 PO; +KLONOPIN 0.5MG0.5 MG PO; +OXYCONTIN 10MG10 MG PO; +PRINIVIL10 MG PO; +PROBIOTIC FORMU1 CAP PO; +ROXICODONE30 MG PO; +SENNA-S 50 MG-81 TAB PO; +SINGULAIR 110 MG/TAB PO; +SKELAXIN 800MG800 MG PO; +TAXOL30; +VIT B12 IV
== END ==
LOC: COL.CARD 07:52
DX: R00.0 Tachycardia, unspecified (principal)

== ENCOUNTER 2020-08-10 21:25 | Emergency (ER) | payer BC ==
[~2020-08-10] VITALS: Ht 167.6 cm; Wt 122.7 kg
[~2020-08-10 21:25] MED LIST changes: -ASPIRIN 32325 MG/TAB PO; -BACTRIM DS 8001 TAB PO; -CBD GUMMIES PO; -CLARITIN REDIT; -KLONOPIN 0.5MG0.5 MG PO; -OXYCONTIN 10MG10 MG PO; -PRINIVIL10 MG PO; -PROBIOTIC FORMU1 CAP PO; -ROXICODONE30 MG PO; -SENNA-S 50 MG-81 TAB PO; -SINGULAIR 110 MG/TAB PO; -SKELAXIN 800MG800 MG PO; -TAXOL30
[2020-08-10 21:41] VITALS: TEMP 98.7
[2020-08-10 23:30] LABS: ALANINE AMINOTRANSFERASE 41 U/L (4-34); ALKALINE PHOSPHATASE 79 U/L (50-136); ANION GAP 6 mmol/L (7-16); AST,SGOT 33 U/L (15-37); BILIRUBIN,TOTAL 0.9 mg/dL (0.0-1.0); BLOOD UREA NITROGEN 16 mg/dL (7-17); CALCIUM 9.1 mg/dL (8.4-10.2); CARBON DIOXIDE 29 mmol/L (22-30); CHLORIDE 101 mmol/L (98-107); CREATININE, serum 0.61 (0.52-1.25); GLUCOSE 138 mg/dL (74-106); LIPASE 27 U/L (23-300); POTASSIUM 4.1 mmol/L (3.4-5.0); SODIUM 136 mmol/L (137-145); TOTAL PROTEIN 8.1 gm/dL (6.4-8.2)
[2020-08-10 23:31] LABS: HEMATOCRIT 39.1 % (37.0-47.0); HEMOGLOBIN 12.4 g/dl (12.5-16.0); MEAN CELL VOLUME 91 fl (80.0-100.0); MEAN CORPUSCULAR HEMOGLOBIN 29 pg (27.0-31.0); MEAN CORPUSCULAR HGB CONC 32 g/dl (33.0-37.0); PLATELET COUNT 190 K/mm3 (130-400); RED BLOOD COUNT 4.28 M/mm3 (4.10-5.30); REDCELL DISTRIBUTION WIDTH-CV 14.7 % (11.5-14.5)
[2020-08-10 23:44] LABS: TROPONIN-I < 0.012 ng/mL (0.000-0.035)
[2020-08-10 23:59] LABS: BAND 3 % (0-10); LYMPHOCYTE 16 % (20.0-51.0); NEUTROPHILS 81 % (42.0-75.2)
[2020-08-11] LABS: ANISOCYTOSIS 1+; HYPOCHROMIA 2+; PLATELET ESTIMATE NORMAL (NORMAL)
[2020-08-11 03:05] VITALS: BP 137/94; PULSE 86
[2021-02-24] MEDS ORDERED: BACTRIM DS 8001 TAB PO (18:55)
== END 2020-08-11 03:05 | disposition home or self-care (01) ==
LOC: COL.ER 21:25
PROVIDERS: Emergency Medicine
DX: R07.89 Other chest pain (principal); R42 Dizziness and giddiness; E86.0 Dehydration; R11.2 Nausea with vomiting, unspecified; C78.00 Secondary malignant neoplasm of unspecified lung; Z90.49 Acquired absence of other specified parts of digestive tract; Z90.710 Acquired absence of both cervix and uterus; Z95.9 Presence of cardiac and vascular implant and graft, unspecified; Z88.6 Allergy status to analgesic agent; Z88.8 Allergy status to other drugs, medicaments and biological substances
CPT/HCPCS: J0780; J1100; J1644; J7120

== ENCOUNTER → 2020-09-22 | Outpatient (CLI) | payer BC ==
[~2020-09-22] MED LIST changes: +ASPIRIN 32325 MG/TAB PO; +BACTRIM DS 8001 TAB PO; +CBD GUMMIES PO; +CLARITIN REDIT; +DIFLUCAN 100MG100 MG PO; +KLONOPIN 0.5MG0.5 MG PO; +OXYCONTIN 10MG10 MG PO; +PRINIVIL10 MG PO; +PROBIOTIC FORMU1 CAP PO; +ROXICODONE30 MG PO; +SENNA-S 50 MG-81 TAB PO; +SINGULAIR 110 MG/TAB PO; +SKELAXIN 800MG800 MG PO; +TAXOL30
== END ==
LOC: MC.RAD 10:45
DX: Z12.31 Encounter for screening mammogram for malignant neoplasm of breast (principal)

== ENCOUNTER 2020-10-02 05:48 | Day surgery (SDC) | payer BC, MEDICARE ==
[~2020-10-02] VITALS: Ht 167.6 cm; Wt 122.0 kg
[~2020-10-02 05:48] MED LIST changes: -ASPIRIN 32325 MG/TAB PO; -BACTRIM DS 8001 TAB PO; -CBD GUMMIES PO; -CLARITIN REDIT; -DIFLUCAN 100MG100 MG PO; -KLONOPIN 0.5MG0.5 MG PO; -OXYCONTIN 10MG10 MG PO; -PRINIVIL10 MG PO; -PROBIOTIC FORMU1 CAP PO; -ROXICODONE30 MG PO; -SENNA-S 50 MG-81 TAB PO; -SINGULAIR 110 MG/TAB PO; -SKELAXIN 800MG800 MG PO; -TAXOL30
[2020-10-02] MEDS ORDERED: SENNA-S 50 MG-81 TAB PO (06:41)
[2020-10-02] MEDS ORDERED: ATIVAN 1MG T1 MG/TAB PO (06:43)
[2020-10-02] MEDS ORDERED: MOTRIN 800800 MG/TAB PO (06:43)
[2020-10-02] MEDS ORDERED: CBD GUMMIES PO (06:44)
[2020-10-02] MEDS ORDERED: PROBIOTIC FORMU1 CAP PO (06:45)
[2020-10-02 06:49] VITALS: BP 123/91; PULSE 96; TEMP 97.5
--- NOTE | 2020-10-02 06:57 | NUR ---
TO [place] 1 AT 0610- CALL LIGHT IN REACH WILL CALL SON FOR RIDE HOME
[2020-10-02 08:00] VITALS: BP 117/80; PULSE 90; TEMP 97.1
--- NOTE | 2020-10-02 08:00 | NUR ---
PT TO BAY 1 VIA CART FROM ENDO LAB, PT WALKED TO CHAIR GAIT STABLE. CALL LIGHT IN REACH. TAKES ANTONETTE AND EVELYN, NO C/O
[2020-10-02 08:15] VITALS: BP 118/79; PULSE 89
[2020-10-02 08:30] VITALS: BP 108/83; PULSE 86
--- NOTE | 2020-10-02 08:30 | NUR ---
DR JASMINE SEE PT AND ANSWER QUESTIONS, PORT FLUSHED WITH SALINE THEN HEPARIN PER PROTOCOL AND DEACCESSED AT THIS TIME. PT UP TO B/R, GAIT STABLE, HAD SMALL BM WITH NO BLOOD NOTED
[2020-10-02 08:45] VITALS: BP 134/97; PULSE 85
--- NOTE | 2020-10-02 08:45 | NUR ---
PT UP AND DRESSED, REVIEWED DISCHARGE INST. WITH PT, PT KNOWS OFFICE WILL CONTACT HER WITH BIOPSY RESULTS AND NEXT STEPS FOR TESTING. PT DISCHARGED VIA W/C TO CAR
[2021-02-24] MEDS ORDERED: BACTRIM DS 8001 TAB PO (18:55)
== END 2020-10-02 08:45 | disposition home or self-care (01) ==
LOC: SDCO 05:48
DX: K62.89 Other specified diseases of anus and rectum (principal); K92.1 Melena; K59.00 Constipation, unspecified; K62.4 Stenosis of anus and rectum; K62.6 Ulcer of anus and rectum; K22.70 Barrett's esophagus without dysplasia; K21.9 Gastro-esophageal reflux disease without esophagitis; K44.9 Diaphragmatic hernia without obstruction or gangrene; Z85.43 Personal history of malignant neoplasm of ovary; Z85.09 Personal history of malignant neoplasm of other digestive organs; Z88.8 Allergy status to other drugs, medicaments and biological substances; Z88.5 Allergy status to narcotic agent; Z88.1 Allergy status to other antibiotic agents; Z87.891 Personal history of nicotine dependence; G47.33 Obstructive sleep apnea (adult) (pediatric); G89.29 Other chronic pain; F32.9 Major depressive disorder, single episode, unspecified; F41.9 Anxiety disorder, unspecified; E66.01 Morbid (severe) obesity due to excess calories
CPT/HCPCS: J1644; J2704; J7030

== ENCOUNTER 2021-01-07 12:30 | Day surgery (SDC) | payer BC ==
[~2021-01-07] VITALS: Ht 167.6 cm; Wt 120.5 kg
[~2021-01-07 12:30] MED LIST changes: +CBD GUMMIES PO; +PROBIOTIC FORMU1 CAP PO; +SENNA-S 50 MG-81 TAB PO
[2021-01-07 13:52] VITALS: BP 107/79; PULSE 113; TEMP 97.5
[2021-01-07] MEDS ORDERED: CYMBALTA 60MG60 MG PO (13:53)
[2021-01-07] MEDS ORDERED: SINGULAIR 110 MG/TAB PO (13:54)
[2021-01-07] MEDS ORDERED: ASPIRIN 32325 MG/TAB PO (13:55)
[2021-01-07] MEDS ORDERED: TAXOL30 (13:55)
[2021-01-07] MEDS ORDERED: DECADRON 4MG TAB4 MG PO (13:55)
[2021-01-07] MEDS ORDERED: BACTRIM DS 8001 TAB PO (14:48)
[2021-01-07 15:25] VITALS: BP 122/82; PULSE 107; TEMP 97.2
[2021-01-07 15:40] VITALS: BP 112/82; PULSE 108
[2021-01-07 15:55] VITALS: BP 132/75; PULSE 106
[2021-02-24] MEDS ORDERED: BACTRIM DS 8001 TAB PO (18:55)
== END 2021-01-07 16:05 | disposition home or self-care (01) ==
LOC: SDCO 12:30
DX: N13.1 Hydronephrosis with ureteral stricture, not elsewhere classified (principal); Z46.6 Encounter for fitting and adjustment of urinary device; Z85.05 Personal history of malignant neoplasm of liver; Z85.118 Personal history of other malignant neoplasm of bronchus and lung; Z85.89 Personal history of malignant neoplasm of other organs and systems; Z90.710 Acquired absence of both cervix and uterus; Z90.89 Acquired absence of other organs; Z79.899 Other long term (current) drug therapy; Z79.891 Long term (current) use of opiate analgesic; Z87.891 Personal history of nicotine dependence
CPT/HCPCS: C1769; C2617; J0690; J2704; J3010; J7120

== ENCOUNTER 2021-02-19 12:13 | Observation (INO) | payer BC ==
[~2021-02-19] VITALS: Ht 170.2 cm; Wt 120.0 kg
[~2021-02-19 12:13] MED LIST changes: +ASPIRIN 32325 MG/TAB PO; +BACTRIM DS 8001 TAB PO; +SINGULAIR 110 MG/TAB PO; +TAXOL30
[2021-02-19 13:42] LABS: BASO % 0.5 % (0.0-2.0); EOS # 0.3 (0.0-0.7); EOS % 3.5 % (0-4.0); GRAN # 6.2 (1.4-6.5); GRAN % 74.6 % (42.2-75.2); HEMATOCRIT 38.1 % (37.0-47.0); HEMOGLOBIN 11.9 g/dl (12.5-16.0); LYMPH # 1.4 (1.2-3.4); LYMPH % 16.4 % (20.0-51.0); MEAN CELL VOLUME 86 fl (80.0-100.0); MEAN CORPUSCULAR HEMOGLOBIN 27 pg (27.0-31.0); MEAN CORPUSCULAR HGB CONC 31 g/dl (33.0-37.0); MEAN PLATELET VOLUME 9.5 fl (7.4-10.4); MONO # 0.4 (0.1-0.6); MONO % 4.8 % (1.7-9.3); PLATELET COUNT 216 K/mm3 (130-400); RED BLOOD COUNT 4.43 M/mm3 (4.10-5.30)
[2021-02-19 13:54] LABS: COLLECTION METHOD CLEAN CATCH
[2021-02-19 14:00] LABS: ALANINE AMINOTRANSFERASE 24 U/L (4-34); ALBUMIN 4.1 gm/dL (3.5-5.0); ALKALINE PHOSPHATASE 76 U/L (50-136); ANION GAP 6 mmol/L (7-16); AST,SGOT 17 U/L (15-37); BILIRUBIN,TOTAL 0.5 mg/dL (0.0-1.0); BLOOD UREA NITROGEN 9 mg/dL (7-17); CALCIUM 9.1 mg/dL (8.4-10.2); CARBON DIOXIDE 33 mmol/L (22-30); CHLORIDE 97 mmol/L (98-107); CREATININE, serum 0.68 (0.52-1.25); GLUCOSE 121 mg/dL (74-106); POTASSIUM 3.9 mmol/L (3.4-5.0); SODIUM 136 mmol/L (137-145); TOTAL PROTEIN 7.7 gm/dL (6.4-8.2)
[2021-02-19 14:03] LABS: MUCOUS Present /lpf; PH 9 (5-8); URINE APPEARANCE Hazy; URINE BACTERIA Rare /hpf; URINE BILIRUBIN Negative (NEGATIVE); URINE BLOOD 1+ (NEGATIVE); URINE COLOR Yellow; URINE GLUCOSE Negative (NEGATIVE); URINE KETONE Negative (NEGATIVE); URINE LEUKOCYTE ESTERASE 3+ (NEGATIVE); URINE NITRATE Negative (NEGATIVE); URINE PROTEIN(semi-quant) 2+ (NEGATIVE); URINE UROBILINOGEN Negative (NEGATIVE)
[2021-02-19 14:36] LABS: TROPONIN-I < 0.012 ng/mL (0.000-0.035)
[2021-02-19 18:40] VITALS: BP 167/122; PULSE 99; TEMP 98
[2021-02-19 19:20] VITALS: BP 143/74; PULSE 81; TEMP 98
--- NOTE | 2021-02-19 19:42 | NUR ---
ALERT AND OX4. C/O LOWER BACK PAIN AND LOWER ABD PAIN. RATING 6/10. SOME NAUSEA. ALLERY REVIEWED ALONG W MED REC. ASSESSMENT COMPLETE. LT PORT A CATH ACCESSED BY ER. ORDERS REVIEWED. PLAN OF CARE REVIEW. ORIENTATED TO ROOM. CALL LIGHT WITHIN REACH. BED IN LOW POSITION.
[2021-02-19 19:57] VITALS: BP 157/96; PULSE 90; TEMP 98.3
[2021-02-19 23:58] VITALS: BP 98/73; PULSE 81; TEMP 98
--- NOTE | 2021-02-20 01:49 | NUR ---
Patient sleeping soundly-- call light in reach
[2021-02-20 03:14] VITALS: BP 115/80; PULSE 88; TEMP 98.1
[2021-02-20 07:49] LABS: CALCIUM 8.7 mg/dL (8.4-10.2); CREATININE, serum 0.7 (0.52-1.25); POTASSIUM 3.6 mmol/L (3.4-5.0)
[2021-02-20 08:08] VITALS: BP 116/83; PULSE 107; TEMP 97.9
--- NOTE | 2021-02-20 08:09 | NUR ---
PT PLEASANT AOX4, FLUIDS INFUSING TO LC PORT SITE. PT DENIES HUNGER, N/V/D. REPORTS SHE HASN'T EATEN SINCE MONDAY. PT ASSESSMENT PERFORMED, MEDICATIONS GIVEN, REPORTS PAIN IN LOW BACK, TYLENOL GIVEN WITH OTHER MORNING MEDS. CALL LIGHT WITHIN REACH NO OTHER NEEDS.
[2021-02-20 11:01] VITALS: BP 124/75; PULSE 92; TEMP 98
--- NOTE | 2021-02-20 13:41 | NUR ---
Plan is to return home with Daughter Ursula in [place]. SW met with patient in room about her care. Patient reports that her adult son lives downstairs however her Daughter is her care support and emergency contact. Patient reports that she is on additional oxygen at home but states it is room air. Patient shares that her PCP is Dr. Stacy at [facility]. Patient shares that that she has a walker but uses PRN. Patient reports that she would likes home healthcare but insurance does not cover. Educated on supports and making a referral for home health care. Will follow for additonal care supports.
[2021-02-20 16:34] VITALS: BP 119/75; PULSE 104; TEMP 98.9
[2021-02-20 19:59] VITALS: BP 129/79; PULSE 90; TEMP 98.2
--- NOTE | 2021-02-20 21:00 | NUR ---
Initial shift assessment done- states pain is about 5/10 at this time to low back and low abdomen,, will give the oxycontin that is scheduled now- states did eat lunch but not supper-- requesting a sandwich box at this time
[2021-02-20 23:59] VITALS: BP 112/82; PULSE 96; TEMP 98.3
[2021-02-21 03:02] VITALS: BP 112/66; PULSE 89; TEMP 98.2
[2021-02-21 07:22] LABS: BASO % 0.5 % (0.0-2.0); EOS # 0.5 (0.0-0.7); EOS % 7.5 % (0-4.0); GRAN # 3.2 (1.4-6.5); GRAN % 52.6 % (42.2-75.2); HEMOGLOBIN 10.8 g/dl (12.5-16.0); LYMPH # 1.9 (1.2-3.4); LYMPH % 31.1 % (20.0-51.0); MEAN CELL VOLUME 88 fl (80.0-100.0); MEAN CORPUSCULAR HEMOGLOBIN 27 pg (27.0-31.0); MEAN CORPUSCULAR HGB CONC 31 g/dl (33.0-37.0); MONO # 0.5 (0.1-0.6); PLATELET COUNT 196 K/mm3 (130-400); RED BLOOD COUNT 3.97 M/mm3 (4.10-5.30); REDCELL DISTRIBUTION WIDTH-CV 16.5 % (11.5-14.5)
[2021-02-21 07:28] LABS: HEMATOCRIT 35.1 % (37.0-47.0)
[2021-02-21 07:33] LABS: CALCIUM 8.8 mg/dL (8.4-10.2); CREATININE, serum 0.77 (0.52-1.25); POTASSIUM 3.7 mmol/L (3.4-5.0)
[2021-02-21 08:00] VITALS: BP 106/72; PULSE 91; TEMP 97.9
--- NOTE | 2021-02-21 09:18 | NUR ---
PT PLEASANT, AOX4, REPORTS PAIN BUT MILD AT THIS TIME. PT SLEEPING UPON ENTRY, MEDICATIONS GIVEN, ASSESSMENT PERFORMED, PT TO ORDER BREAKFAST, NO OTHER NEEDS
[2021-02-21 11:49] VITALS: BP 129/85; PULSE 95; TEMP 97.6
[2021-02-21 16:18] VITALS: BP 135/82; PULSE 102; TEMP 97.7
[2021-02-21] MEDS ORDERED: OXYCONTIN 10MG10 MG PO (17:01)
[2021-02-21] MEDS ORDERED: MIRALAX PA17 GM/Dose PO (17:02)
[2021-02-21] MEDS ORDERED: CIPRO 500MG TA500 MG PO (17:21)
--- NOTE | 2021-02-21 17:29 | NUR ---
PT PLEASANT, AOX4, DENIES PAIN AT THIS TIME, EAGER FOR DISCHARGE. DISCHARGE PAPERWORK PUT TOGETHER.
--- NOTE | 2021-02-21 17:59 | NUR ---
PORT HEPARINIZED AND DEACCESSED PER HOSPITAL PROTOCOL. DISCHARGE EDUCATION REVIEWED. PT ESCORTED OUT VIA WHEELCHAIR, NO OTHER NEEDS
[2021-02-24] MEDS ORDERED: BACTRIM DS 8001 TAB PO (18:55)
== END 2021-02-21 18:00 | disposition home or self-care (01) ==
LOC: COL.ER 12:13 → MEDICAL 16:58
PROVIDERS: Emergency Medicine; Physician Assistant
DX: N39.0 Urinary tract infection, site not specified (principal); B96.89 Other specified bacterial agents as the cause of diseases classified elsewhere; Z16.19 Resistance to other specified beta lactam antibiotics; Z16.23 Resistance to quinolones and fluoroquinolones; Z16.11 Resistance to penicillins; Z20.822 Contact with and (suspected) exposure to COVID-19; C80.1 Malignant (primary) neoplasm, unspecified; C78.6 Secondary malignant neoplasm of retroperitoneum and peritoneum; C78.02 Secondary malignant neoplasm of left lung; C78.01 Secondary malignant neoplasm of right lung; C78.7 Secondary malignant neoplasm of liver and intrahepatic bile duct; D63.0 Anemia in neoplastic disease; E03.9 Hypothyroidism, unspecified; R53.81 Other malaise; F41.9 Anxiety disorder, unspecified; F32.9 Major depressive disorder, single episode, unspecified; E66.01 Morbid (severe) obesity due to excess calories; Z96.0 Presence of urogenital implants; Z79.899 Other long term (current) drug therapy; Z79.890 Hormone replacement therapy; Z79.82 Long term (current) use of aspirin
CPT/HCPCS: 99223-AI; 99232-AI; 99239; G0378; J1644; J1650; J2270; J2543; J7030; Q9967

== ENCOUNTER 2021-03-03 09:29 | Emergency (ER) | payer BC, MEDICAID ==
[~2021-03-03] VITALS: Ht 167.6 cm; Wt 120.0 kg
[~2021-03-03 09:29] MED LIST changes: +OXYCONTIN 10MG10 MG PO
[2021-03-03 09:42] VITALS: TEMP 97.7
[2021-03-03 09:43] LABS: COLLECTION METHOD CLEAN CATCH
[2021-03-03 10:03] LABS: BUDDING YEAST Present /hpf; MUCOUS Present /lpf; PH 6 (5-8); URINE APPEARANCE Cloudy; URINE BACTERIA None Seen /hpf; URINE BILIRUBIN Negative (NEGATIVE); URINE BLOOD 1+ (NEGATIVE); URINE COLOR Yellow; URINE GLUCOSE Negative (NEGATIVE); URINE KETONE Negative (NEGATIVE); URINE LEUKOCYTE ESTERASE 3+ (NEGATIVE); URINE NITRATE Negative (NEGATIVE); URINE PROTEIN(semi-quant) 3+ (NEGATIVE); URINE UROBILINOGEN Negative (NEGATIVE)
[2021-03-03 10:42] LABS: ALBUMIN 4.2 gm/dL (3.5-5.0); BASO % 0.2 % (0.0-2.0); BILIRUBIN,TOTAL 0.7 mg/dL (0.0-1.0); CALCIUM 9.2 mg/dL (8.4-10.2); CREATININE, serum 0.89 (0.52-1.25); EOS % 0.2 % (0-4.0); GRAN # 7.7 (1.4-6.5); GRAN % 84.5 % (42.2-75.2); HEMATOCRIT 38.8 % (37.0-47.0); HEMOGLOBIN 12.2 g/dl (12.5-16.0); LYMPH # 0.9 (1.2-3.4); LYMPH % 10.2 % (20.0-51.0); MEAN CELL VOLUME 85 fl (80.0-100.0); MEAN CORPUSCULAR HEMOGLOBIN 27 pg (27.0-31.0); MEAN CORPUSCULAR HGB CONC 31 g/dl (33.0-37.0); MEAN PLATELET VOLUME 10.1 fl (7.4-10.4); MONO # 0.4 (0.1-0.6); MONO % 4.7 % (1.7-9.3); PLATELET COUNT 262 K/mm3 (130-400); POTASSIUM 3.6 mmol/L (3.4-5.0); RED BLOOD COUNT 4.56 M/mm3 (4.10-5.30); REDCELL DISTRIBUTION WIDTH-CV 15.7 % (11.5-14.5); TOTAL PROTEIN 8.2 gm/dL (6.4-8.2)
[2021-03-03] MEDS ORDERED: MACROBID 1100 MG/CAP PO (13:30)
[2021-03-03 13:46] VITALS: BP 167/124; PULSE 106
== END 2021-03-03 13:51 | disposition home or self-care (01) ==
LOC: COL.ER 09:29
PROVIDERS: Physician Assistant
DX: K59.03 Drug induced constipation (principal); N39.0 Urinary tract infection, site not specified; C78.7 Secondary malignant neoplasm of liver and intrahepatic bile duct; C78.00 Secondary malignant neoplasm of unspecified lung; Z90.49 Acquired absence of other specified parts of digestive tract; Z90.710 Acquired absence of both cervix and uterus
CPT/HCPCS: J0696; J2060; J2550; J3010; J7030

== ENCOUNTER 2021-03-09 07:38 | Day surgery (SDC) | payer BC ==
[~2021-03-09] VITALS: Ht 167.6 cm; Wt 119.3 kg
[2021-03-09 08:01] VITALS: BP 135/93; PULSE 117; TEMP 96.9
[2021-03-09] MEDS ORDERED: ATIVAN 1MG T1 MG/TAB PO (08:11)
[2021-03-09] MEDS ORDERED: ABILIFY5 MG PO (08:12)
[2021-03-09] MEDS ORDERED: SENNA-S 50 MG-81 TAB PO (08:13)
[2021-03-09 11:20] VITALS: BP 122/78; PULSE 98; TEMP 97.5
[2021-03-09 11:35] VITALS: BP 125/77; PULSE 94
[2021-03-09 11:50] VITALS: BP 119/95; PULSE 98
--- NOTE | 2021-03-09 12:03 | NUR ---
1120: Patient arrived back from PACU, report recieved from ALISTAIR Chen. Patient drowsy, awakens to voice. Patient reports doing well. No nausea or pain at this time. 1135: Patient reports doing well. Requesting apple juice and pudding. Tolerated well with no nausea. Patient states she is ready to get up and use the restroom. Patient dangled and got up and ambulated to restroom independently. 1140: Patient arrived back to room. Stated she was able to void. Got dressed. 1150: Patient vitally stable. ALISTAIR Monzon assisted in deaccessing port-a-cath. No complications noted. Went through discharge instructions with patient. Patient voiced understanding, questions answered. 1200: walked patient to emergency department entrance and left patient in the care of her daughter.
--- NOTE | 2021-03-09 12:10 | NUR ---
0800: ALISTAIR Reed accessed patients port-a-cath using accessing kit. Patient tolerated accessing well. Able to get blood return and flushes well.
== END 2021-03-09 12:05 | disposition home or self-care (01) ==
LOC: SDCO 07:38
DX: N13.1 Hydronephrosis with ureteral stricture, not elsewhere classified (principal); G47.33 Obstructive sleep apnea (adult) (pediatric); Q62.39 Other obstructive defects of renal pelvis and ureter; E66.01 Morbid (severe) obesity due to excess calories; F32.9 Major depressive disorder, single episode, unspecified; F41.9 Anxiety disorder, unspecified; E03.9 Hypothyroidism, unspecified; Z85.520 Personal history of malignant carcinoid tumor of kidney; Z85.05 Personal history of malignant neoplasm of liver; Z85.118 Personal history of other malignant neoplasm of bronchus and lung; Z87.440 Personal history of urinary (tract) infections; Z79.899 Other long term (current) drug therapy; Z90.89 Acquired absence of other organs; Z90.710 Acquired absence of both cervix and uterus; Z79.891 Long term (current) use of opiate analgesic; Z79.890 Hormone replacement therapy; Z87.891 Personal history of nicotine dependence; Z20.822 Contact with and (suspected) exposure to COVID-19
CPT/HCPCS: C1769; C2617; J0690; J1100; J1885; J2704; J3010; J7120

== ENCOUNTER → 2021-04-14 | Outpatient (CLI) | payer BC ==
[~2021-04-14] MED LIST changes: +CLARITIN REDIT; +DIFLUCAN 100MG100 MG PO; +DILAUDID 2MG TAB2 MG PO; +KLONOPIN 0.5MG0.5 MG PO; +PRINIVIL10 MG PO; +ROXICODONE30 MG PO; +SKELAXIN 800MG800 MG PO
== END ==
LOC: COL.RAD 08:00 → COL.VAS 09:35
DX: C78.7 Secondary malignant neoplasm of liver and intrahepatic bile duct (principal)

== ENCOUNTER → 2021-04-26 | Outpatient (CLI) | payer BC | LOC: COL.RAD 10:18 | DX: C78.7 Secondary malignant neoplasm of liver and intrahepatic bile duct (principal) | CPT/HCPCS: A9585 ==

== ENCOUNTER 2021-04-28 17:47 | Inpatient (IN) | payer BC, MEDICAID ==
[~2021-04-28] VITALS: Ht 167.6 cm; Wt 124.3 kg
[~2021-04-28 17:47] MED LIST changes: -CLARITIN REDIT; -DIFLUCAN 100MG100 MG PO; -DILAUDID 2MG TAB2 MG PO; -KLONOPIN 0.5MG0.5 MG PO; -PRINIVIL10 MG PO; -ROXICODONE30 MG PO; -SKELAXIN 800MG800 MG PO
[2021-04-28] MEDS ORDERED: SKELAXIN 800MG800 MG PO (18:28)
[2021-04-28] MEDS ORDERED: CLARITIN REDIT (18:32)
[2021-04-28] MEDS ORDERED: COLACE 100100 MG/CAP PO (18:33)
[2021-04-28 19:29] LABS: BASO % 0.2 % (0.0-2.0); EOS # 0.2 K/mm3 (0.0-0.7); EOS % 1.8 % (0-4.0); GRAN # 7.9 K/mm3 (1.4-6.5); GRAN % 76.8 % (42.2-75.2); LYMPH # 1.5 K/mm3 (1.2-3.4); LYMPH % 14.4 % (20.0-51.0); MEAN CELL VOLUME 83 fl (80.0-100.0); MEAN CORPUSCULAR HGB CONC 31 g/dl (33.0-37.0); MEAN PLATELET VOLUME 8.9 fl (7.4-10.4); MONO # 0.6 K/mm3 (0.1-0.6); MONO % 6.1 % (1.7-9.3); PLATELET COUNT 268 K/mm3 (130-400); RED BLOOD COUNT 2.59 M/mm3 (4.10-5.30); REDCELL DISTRIBUTION WIDTH-CV 17.5 % (11.5-14.5)
[2021-04-28 19:31] LABS: HEMATOCRIT 21.4 % (37.0-47.0); HEMOGLOBIN 6.6 g/dl (12.5-16.0); MEAN CORPUSCULAR HEMOGLOBIN 25 pg (27.0-31.0)
[2021-04-28 20:01] LABS: ALBUMIN 2.3 gm/dL (3.5-5.0); CALCIUM 8.3 mg/dL (8.4-10.2); CREATININE, serum 2.31 mg/dL (0.57-1.11); MAGNESIUM 2.1 mg/dL (1.6-2.6); POTASSIUM 3.7 mmol/L (3.5-4.5); TOTAL PROTEIN 7.1 gm/dL (6.2-8.1)
[2021-04-28 21:08] VITALS: BP 124/84; PULSE 102; TEMP 98.2
[2021-04-28] MEDS ORDERED: KLONOPIN 0.5MG0.5 MG PO (21:15)
[2021-04-28] MEDS ORDERED: FOLIC ACID 11 MG/TA1 PO (21:18)
[2021-04-28] MEDS ORDERED: ROXICODONE30 MG PO (21:18)
[2021-04-28] MEDS ORDERED: PRINIVIL10 MG PO (21:19)
[2021-04-28 21:23] VITALS: BP 120/91; PULSE 96; TEMP 98.3
[2021-04-28 21:39] VITALS: BP 120/86; PULSE 93
[2021-04-28 22:10] VITALS: BP 121/81; PULSE 95; TEMP 98.2
[2021-04-28 22:46] VITALS: BP 127/89; PULSE 94
[2021-04-28 23:34] LABS: COLLECTION METHOD CLEAN CATCH
[2021-04-28 23:55] LABS: BUDDING YEAST Present (NOT PRESENT); MUCOUS Present (NOT PRESENT); PH 5 (5-8); URINE APPEARANCE Turbid (CLEAR/HAZY); URINE BACTERIA Many (NONE SEEN); URINE BILIRUBIN Negative (NEGATIVE); URINE BLOOD 2+ (NEGATIVE); URINE COLOR Yellow (YELLOW); URINE GLUCOSE Negative (NEGATIVE); URINE KETONE Negative (NEGATIVE); URINE LEUKOCYTE ESTERASE 2+ (NEGATIVE); URINE NITRATE Negative (NEGATIVE); URINE PROTEIN(semi-quant) 2+ (NEGATIVE); URINE RBC >50 /hpf (0-2)
[2021-04-28 23:59] LABS: HEMATOCRIT 24.7 % (37.0-47.0); HEMOGLOBIN 7.7 g/dl (12.5-16.0)
[2021-04-29] VITALS (9 sets, daily range): BP systolic 102–128; BP diastolic 59–87; PULSE 79–97; TEMP 97.7–99
--- NOTE | 2021-04-29 01:00 | NUR ---
Patient to medical room 356 at this time. She is alert and oriented with complaints of mild back pain, which is chronic for her. Daughter, Alexandra, contacted to verify med rec. Additional admit paperwork completed. Left chest port flushes and draws blood; fluids currently infusing. Patient on 2 liters 02 with no increased work of breathing. Lung sounds are diminished with fine crackles in bases. No skin issues are noted. Berumen catheter is placed at this time for accurate I&O. 30 mls urine is drained upon insertion. Call light in reach, will continue to monitor.
[2021-04-29] MEDS ORDERED: MIRALAX PA17 GM/Dose PO (01:05)
[2021-04-29] MEDS ORDERED: ATIVAN 1MG T1 MG/TAB PO (01:05)
[2021-04-29] MEDS ORDERED: PHENERGAN 25 TA25 MG PO (01:06)
[2021-04-29 06:53] LABS: BASO % 0.3 % (0.0-2.0); EOS # 0.1 K/mm3 (0.0-0.7); EOS % 1.6 % (0-4.0); GRAN % 80.8 % (42.2-75.2); LYMPH % 10.9 % (20.0-51.0); MEAN CELL VOLUME 84 fl (80.0-100.0); MEAN CORPUSCULAR HGB CONC 31 g/dl (33.0-37.0); MEAN PLATELET VOLUME 9.2 fl (7.4-10.4); MONO # 0.5 K/mm3 (0.1-0.6); MONO % 5.5 % (1.7-9.3); PLATELET COUNT 252 K/mm3 (130-400); RED BLOOD COUNT 2.68 M/mm3 (4.10-5.30); REDCELL DISTRIBUTION WIDTH-CV 17.2 % (11.5-14.5)
[2021-04-29 06:54] LABS: HEMATOCRIT 22.4 % (37.0-47.0); MEAN CORPUSCULAR HEMOGLOBIN 26 pg (27.0-31.0)
[2021-04-29 07:09] LABS: CALCIUM 8.7 mg/dL (8.4-10.2); CREATININE, serum 2.07 mg/dL (0.57-1.11); POTASSIUM 3.6 mmol/L (3.5-4.5)
--- NOTE | 2021-04-29 08:34 | NUR ---
Assessment completed, alert/oriented, vital signs stable, reports generalized abd pain that is chronic in nature, abd is round and firm/ she reports no BM for about 2 weeks now, BS are hypoactive throughout, Mirlax given as ordered, heart RRR/ distal pulses are palpable, she has 2+ edema to BLE and she stated this is unusual for her, IVF infusing as she had poor urine output last night, newton cath in place and accurate I/O being recorded, Hemaglobin 6.6 on admit and 1 unit of PRBC was given last night/ hgbn 7.0 on this morning lab draw, she denies other needs at this time, I will discuss plan of care with hospitalist
--- NOTE | 2021-04-29 11:49 | NUR ---
First visit from the credit union manager. No needs right now.
--- NOTE | 2021-04-29 16:03 | NUR ---
slag production worker met with patient to discuss discharge plan. Patient reports that she lives at home with her son Saurabh ([phone]) in [place]. Patient states that she is fully independent with her activities of daily living and that she uses a walker to assist with ambulation. Patient is currently on O2 and states that she uses 2L NC oxygen at home which is managed through [facility] in . PCP is Dr. Stacy and [facility] all of [facility] needs as well with no cost difficulty. Patient reports that she does have a DPOA-HC established and that her daughter Alexandra ([phone]) is her agent. Reports that Dr. Stacy's office has a copy of it on file. Patient reports that she is planning on returning home with her son. Educated the patient that PT is recommending her have some HH therapy but due to her having commercial insurance that HH might not be a covered benefit. Patient reports that she has never done out patient therapy but is open to seeking PT as an out patient. Attempt made to contact Saurabh and was unsuccessful. Discharge plan: Home with son- OP PT
[2021-04-29 18:05] LABS: HEMATOCRIT 22.1 % (37.0-47.0); HEMOGLOBIN 6.9 g/dl (12.5-16.0)
--- NOTE | 2021-04-29 19:42 | NUR ---
Bowel prep was deliverd to the unit. Patient started drinking it.
--- NOTE | 2021-04-29 21:40 | NUR ---
Patient is resting in bed, alert and oriented x 4, VSS, denies pain, nausea or vomiting. Tele and catheter newton in place. 2L O2 NC. NS at 75ml/hr. Assessment completed, medications provided. 1 unit of blood to be adminiestered. No further needs at this time. Call light within reach.
[2021-04-30] VITALS (11 sets, daily range): BP systolic 94–123; BP diastolic 52–78; PULSE 81–95; TEMP 97.5–98.2
--- NOTE | 2021-04-30 01:56 | NUR ---
Patient complains of generalized pain and asks for Roxicodone. PRN provided.
--- NOTE | 2021-04-30 05:43 | NUR ---
Patient received 1 unit o blood in the night with no complications. Continues with antibiotics and NS running at 75ml/hr. Complained about generalized pain. PRN provided. All needs met. Shift report will be given to day RN.
--- NOTE | 2021-04-30 06:02 | NUR ---
Patient has not taken the bowel prep. She took 2 cups only. It was explained the reasons for it but still did not want to drink it.
[2021-04-30 07:39] LABS: BASO % 0.2 % (0.0-2.0); EOS # 0.1 K/mm3 (0.0-0.7); EOS % 0.7 % (0-4.0); GRAN % 72.9 % (42.2-75.2); LYMPH # 1.5 K/mm3 (1.2-3.4); LYMPH % 17.7 % (20.0-51.0); MEAN CELL VOLUME 85 fl (80.0-100.0); MEAN CORPUSCULAR HGB CONC 32 g/dl (33.0-37.0); MEAN PLATELET VOLUME 8.7 fl (7.4-10.4); MONO # 0.6 K/mm3 (0.1-0.6); MONO % 7.6 % (1.7-9.3); PLATELET COUNT 215 K/mm3 (130-400); RED BLOOD COUNT 2.89 M/mm3 (4.10-5.30); REDCELL DISTRIBUTION WIDTH-CV 17.1 % (11.5-14.5)
[2021-04-30 07:44] LABS: HEMATOCRIT 24.6 % (37.0-47.0); HEMOGLOBIN 7.9 g/dl (12.5-16.0); MEAN CORPUSCULAR HEMOGLOBIN 27 pg (27.0-31.0)
[2021-04-30 08:08] LABS: CALCIUM 8.6 mg/dL (8.4-10.2); CREATININE, serum 1.89 mg/dL (0.57-1.11); POTASSIUM 3.4 mmol/L (3.5-4.5)
--- NOTE | 2021-04-30 10:00 | NUR ---
Assessment completed, alert/oriented, vital signs stable, reports pain chronic and at base line 09/19, BLE edeam 2+, shes has been NPo for EGD/Colon, did not do bowel prep well and i notified GI, I have discussed plan of care with patient and family, dominik 7.9 this morning after reciefing 1 PRBC last night
--- NOTE | 2021-04-30 12:30 | NUR ---
patient going down for EGD at this time
[2021-04-30 18:02] LABS: HEMATOCRIT 23.8 % (37.0-47.0); HEMOGLOBIN 7.6 g/dl (12.5-16.0)
--- NOTE | 2021-04-30 22:53 | NUR ---
Patient assessed around 2019. Alert and oriented. Denies pain and discomfort. Port to left chest with ABX running per oders. Denies SOB and dyspnea. LS CTA in upper lobes, diminished in lower. BSAx4. Indwelling newton catheter with yellow, mucousy urine. Perineal hygiene care provided. 2+ edema BLE. Voices no questions, needs, or concerns at this time. In bed with call light within reach.
[2021-05-01 04:38] VITALS: BP 120/69; PULSE 96; TEMP 98.1
--- NOTE | 2021-05-01 05:52 | NUR ---
Patient complained of pain to back this morning. Given PRN Oxycodone per orders this morning, and received some last night as well. Recieved IV ABX this morning per orders. Updated GERMAN Morris on patient. Continues on oxygen at 2 L/min via NC. Voices no questions, needs, or concerns at this time. In bed with call light within reach.
[2021-05-01 07:09] VITALS: BP 105/75; PULSE 107; TEMP 97.9
--- NOTE | 2021-05-01 07:28 | NUR ---
PT LAYING IN BED, PER REPORT PT'S PORT-A-CATH IS NOT DRAWING BLOOD BACK.
[2021-05-01 10:31] LABS: BASO % 0.3 % (0.0-2.0); EOS # 0.2 K/mm3 (0.0-0.7); EOS % 1.9 % (0-4.0); GRAN # 7.2 K/mm3 (1.4-6.5); GRAN % 70.5 % (42.2-75.2); LYMPH # 2.1 K/mm3 (1.2-3.4); LYMPH % 20.6 % (20.0-51.0); MEAN CELL VOLUME 88 fl (80.0-100.0); MEAN CORPUSCULAR HGB CONC 30 g/dl (33.0-37.0); MEAN PLATELET VOLUME 8.7 fl (7.4-10.4); MONO # 0.6 K/mm3 (0.1-0.6); MONO % 6.1 % (1.7-9.3); PLATELET COUNT 263 K/mm3 (130-400); RED BLOOD COUNT 3.27 M/mm3 (4.10-5.30); REDCELL DISTRIBUTION WIDTH-CV 17.4 % (11.5-14.5)
[2021-05-01 10:32] LABS: HEMATOCRIT 28.7 % (37.0-47.0); HEMOGLOBIN 8.7 g/dl (12.5-16.0); MEAN CORPUSCULAR HEMOGLOBIN 27 pg (27.0-31.0)
[2021-05-01 10:43] LABS: CREATININE, serum 1.83 mg/dL (0.57-1.11); POTASSIUM 3.7 mmol/L (3.5-4.5)
[2021-05-01 12:00] VITALS: BP 105/67; PULSE 97; TEMP 98.5
[2021-05-01 15:33] VITALS: BP 110/60; PULSE 102; TEMP 98.6
[2021-05-01 19:33] VITALS: BP 100/72; PULSE 105; TEMP 98
[2021-05-01 23:57] VITALS: BP 114/64; PULSE 88; TEMP 98.4
[2021-05-02] VITALS (7 sets, daily range): BP systolic 106–160; BP diastolic 64–81; PULSE 71–111; TEMP 97.2–98.5
--- NOTE | 2021-05-02 02:17 | NUR ---
AT 0200 PT REPORTS SHE "FEELS INCREASED PERITONEAL SWELLING, ALL QUADRANTS TTP,PT REPORTS SHE HAS PASSED GAS EARLIER THIS MORNING, PT DID ALSO PASS BM THIS NIGHT, ANDREWS WAS DC'D DURING DAY SHIFT 05/01, PT HAS POST VOIDED AROUND 200ML THUS FAR. PT ABDOMEN DISTENDED AND FIRM AND THIS IS CURRENT BASELINE FOR PT. THIS NURSE WILL CONTINUE TO MONITOR.
--- NOTE | 2021-05-02 03:00 | NUR ---
AT 2330 TELE CALLED THIS NURSE TO INFORM PT WAS TACHYCARDIC AT 130, THIS NURSE WAS WITH PT IN ROOM HELPING HER AMBULATE TO BATHROOM. PT ASYMPTOMATIC.
--- NOTE | 2021-05-02 05:46 | NUR ---
PT SLEPT VERY MINIMAL THIS MARBLE FINISHER. PT A/OX4, BP WNL, TACHYCARDIC, AFEBRILE. N/S INFUSING AT 75CC/HR. ALL MEDICATIONS ADMINISTERED ORDERED. PT REPORTS SLIGHT RELIEF OF ABDOMINAL TENDERNESS AND LITTLE TO NO RELIEF OF BLOATING. ALL NEEDS MET THIS NIGHT. CALL LIGHT WITHIN REACH.
[2021-05-02 08:42] LABS: BASO % 0.3 % (0.0-2.0); EOS # 0.2 K/mm3 (0.0-0.7); EOS % 2.2 % (0-4.0); GRAN # 6.5 K/mm3 (1.4-6.5); GRAN % 70.8 % (42.2-75.2); LYMPH # 1.9 K/mm3 (1.2-3.4); MEAN CELL VOLUME 84 fl (80.0-100.0); MEAN CORPUSCULAR HGB CONC 32 g/dl (33.0-37.0); MEAN PLATELET VOLUME 8.9 fl (7.4-10.4); MONO # 0.6 K/mm3 (0.1-0.6); MONO % 6.3 % (1.7-9.3); PLATELET COUNT 238 K/mm3 (130-400); RED BLOOD COUNT 3.09 M/mm3 (4.10-5.30); REDCELL DISTRIBUTION WIDTH-CV 17.5 % (11.5-14.5)
[2021-05-02 08:43] LABS: HEMATOCRIT 25.9 % (37.0-47.0); HEMOGLOBIN 8.2 g/dl (12.5-16.0); MEAN CORPUSCULAR HEMOGLOBIN 27 pg (27.0-31.0)
[2021-05-02 08:53] LABS: CALCIUM 8.9 mg/dL (8.4-10.2); CREATININE, serum 1.8 mg/dL (0.57-1.11); POTASSIUM 3.3 mmol/L (3.5-4.5)
[2021-05-02 16:24] LABS: SODIUM 132 mmol/L (136-145)
[2021-05-02 17:02] LABS: FRACTIONAL EXCRETION OF NA+ 0.26 %
--- NOTE | 2021-05-02 17:11 | NUR ---
RESULTS OF ORDERED LABS BY NEPHROLOGY CALLED TO PARI HERNÁNDEZ.
--- NOTE | 2021-05-02 18:19 | NUR ---
PT HAD A FAIRLY UNEVENTFUL DAY. SHE STATED SHE HAD PAIN SEVERAL TIMES THROUGH THE SHIFT AND WAS GIVEN HER PRESCRIBED OXYCODONE TWICE DURING SHIFT WITH THE LAST DOSE BEING AT AROUND 1600. EARLIER IN THE SHIFT, SHE APPEARED SLIGHTLY FOGGY, BUT WAS ABLE TO RECALL LOCATION OF STAY, YEAR, AND NAME. NEURO ASSESSMENT WAS INITIALLY PERFORMED AND REASSESED WITHIN THE HOUR. SHE DID IMPROVE AND HAS CONTINUED TO REMAIN STABLE THROUGH THE REMAINDER OF THE SHIFT
[2021-05-03 05:17] VITALS: BP 130/85; PULSE 104; TEMP 97.6
--- NOTE | 2021-05-03 05:25 | NUR ---
PT HAD UNEVENTFUL NIGHT THIS SHIFT. PT SLEPT MAJORITY OF THE NIGHT SHE DID NOT SLEEP PREVIOUS NIGHT. PT I&O NOTED AND RECORDED. PT N/S INFUSING AT 60CC/HR TO LH IV, ABX INFUSING AT 25CC/HR TO SAME SITE. PT CONTINUES TO REPORT ABDOMINAL TENDERNESS AND BACK PAIN. PT EXPRESSES NO ADDITONAL NEEDS AT THIS TIME. CALL LIGHT WITHIN REACH.
--- NOTE | 2021-05-03 06:52 | NUR ---
Report received from ALISTAIR Herbert. Pt. sitting up in bed, about to get renal ultrasound at bedside. This RN introduced self to pt. Pt. denies needs at this time, call light and belongings in reach.
[2021-05-03 06:54] LABS: BASO % 0.3 % (0.0-2.0); EOS # 0.3 K/mm3 (0.0-0.7); EOS % 2.9 % (0-4.0); GRAN # 5.9 K/mm3 (1.4-6.5); GRAN % 65.1 % (42.2-75.2); LYMPH # 2.2 K/mm3 (1.2-3.4); LYMPH % 24.8 % (20.0-51.0); MEAN CELL VOLUME 88 fl (80.0-100.0); MEAN CORPUSCULAR HGB CONC 31 g/dl (33.0-37.0); MEAN PLATELET VOLUME 9.1 fl (7.4-10.4); MONO # 0.6 K/mm3 (0.1-0.6); MONO % 6.2 % (1.7-9.3); PLATELET COUNT 238 K/mm3 (130-400); REDCELL DISTRIBUTION WIDTH-CV 17.4 % (11.5-14.5)
[2021-05-03 07:00] LABS: CALCIUM 8.7 mg/dL (8.4-10.2); CREATININE, serum 2.16 mg/dL (0.57-1.11); POTASSIUM 3.3 mmol/L (3.5-4.5)
[2021-05-03 07:08] LABS: HEMATOCRIT 27.2 % (37.0-47.0); HEMOGLOBIN 8.4 g/dl (12.5-16.0); MEAN CORPUSCULAR HEMOGLOBIN 27 pg (27.0-31.0)
[2021-05-03 07:43] VITALS: BP 109/71; PULSE 100; TEMP 97.9
[2021-05-03 13:11] VITALS: BP 115/87; PULSE 110; TEMP 98
--- NOTE | 2021-05-03 13:44 | NUR ---
Pt. progressing w/ plan of care. Pt. sitting OOB in chair at this time. Needs addressed. Pt. spoke w/ MAGDA Keen regarding pt.'s output. Pt. has been voiding throughout her hospital stay, however sometimes when she voids the urine goes directly in the toilet and not in the hat to be measured. MAGDA Keen made aware. Pt. denies needs at this time, call light and belongings in reach.
--- NOTE | 2021-05-03 15:26 | NUR ---
Pt.'s daughter expressing concerns on the telephone regarding her mom. Pt. requesting the pt.'s daughter to be informed regarding her plan of care. Alexandra, pt.'s daughter, updated on plan of care. VAL Vickers notified of pt.'s daughter's concerns, VAL Vickers reports she will provide pt.'s daughter's phone number to Dr. Hilliard to have him give her a call.
--- NOTE | 2021-05-03 15:31 | NUR ---
[employer] received a call from Regan at [facility] who advised they were working on starting services for patient. SW faxed clinical updates. Discharge Plan: Home with [facility]
--- NOTE | 2021-05-03 16:15 | NUR ---
Urology consult placed with Dr. Parker. Pt.'s case reviewed w/ Dr. Parker and he reports he will see her early in the morning tomorrow. Dr. Parker requesting pt. to be NPO at midnight.
[2021-05-03 16:26] VITALS: BP 115/89; PULSE 106; TEMP 97.4
[2021-05-03 19:44] VITALS: BP 97/62; PULSE 101; TEMP 98
[2021-05-03 23:56] VITALS: BP 102/65; PULSE 99; TEMP 98.3
[2021-05-04] VITALS (13 sets, daily range): BP systolic 97–130; BP diastolic 59–83; PULSE 95–117; TEMP 97.3–98.1
--- NOTE | 2021-05-04 06:04 | NUR ---
Rested quietly throughtout night, VS stable, telemetry in use running ST, fatigue noted, BLE edema noted- elevated on pillows and floated heels, ambulated with steady gait with walker to bathroom, updated on plan of care, denies needs at this time.
[2021-05-04 07:09] LABS: BASO % 0.2 % (0.0-2.0); EOS # 0.3 K/mm3 (0.0-0.7); EOS % 2.9 % (0-4.0); GRAN % 67.2 % (42.2-75.2); LYMPH % 22.6 % (20.0-51.0); MEAN CELL VOLUME 88 fl (80.0-100.0); MEAN CORPUSCULAR HGB CONC 31 g/dl (33.0-37.0); MEAN PLATELET VOLUME 9.3 fl (7.4-10.4); MONO # 0.6 K/mm3 (0.1-0.6); MONO % 6.4 % (1.7-9.3); PLATELET COUNT 243 K/mm3 (130-400); RED BLOOD COUNT 2.96 M/mm3 (4.10-5.30); REDCELL DISTRIBUTION WIDTH-CV 17.4 % (11.5-14.5)
[2021-05-04 07:21] LABS: HEMATOCRIT 26.1 % (37.0-47.0); MEAN CORPUSCULAR HEMOGLOBIN 27 pg (27.0-31.0)
--- NOTE | 2021-05-04 07:34 | NUR ---
PT SLEEPING IN BED
[2021-05-04 07:44] LABS: MAGNESIUM 1.7 mg/dL (1.6-2.6)
[2021-05-04 08:00] LABS: CALCIUM 8.8 mg/dL (8.4-10.2); CREATININE, serum 2.26 mg/dL (0.57-1.11); POTASSIUM 3.3 mmol/L (3.5-4.5)
--- NOTE | 2021-05-04 08:44 | NUR ---
PT PLEASANT, AOX4, DROWSY, ASSESSMENT PERFORMED, PT EDEMETOUS TO BLE, PT MEDICATIONS GIVEN, CONSENT OBTAINED, PT REPORTS VERY SOFT STOOLS, REF MIRALAX, NO OTHER NEEDS.
--- NOTE | 2021-05-04 16:03 | NUR ---
PT TAKEN DOWN FOR PROCEDURE
--- NOTE | 2021-05-04 17:40 | NUR ---
PT ARRIVED FROM SURGERY, AOX4,
--- NOTE | 2021-05-04 17:58 | NUR ---
PT URINATED BLOOD TINGED URINE, SOME CLOTS
[2021-05-05 00:13] VITALS: BP 102/73; PULSE 102; TEMP 97.8
[2021-05-05 04:12] VITALS: BP 105/68; PULSE 106; TEMP 98.2
--- NOTE | 2021-05-05 04:45 | NUR ---
Spoke with daughter, contact information for [facility] for LP orders [phone]- orders were sent to radiology and verified by [facility], patient and daughter updated on plan of care, call tanner w/i cyril, neuro checks wnl, ambulates to bathroom with walker w/o issue, generalized edema noted, telemetry in use, pain well managed with current pain regimen, urinating w/o difficulty, afebrile, VS stable.
[2021-05-05 06:54] LABS: BASO % 0.4 % (0.0-2.0); EOS # 0.2 K/mm3 (0.0-0.7); GRAN # 6.6 K/mm3 (1.4-6.5); GRAN % 66.8 % (42.2-75.2); LYMPH # 2.4 K/mm3 (1.2-3.4); MEAN CELL VOLUME 86 fl (80.0-100.0); MEAN CORPUSCULAR HGB CONC 31 g/dl (33.0-37.0); MEAN PLATELET VOLUME 9.2 fl (7.4-10.4); MONO # 0.6 K/mm3 (0.1-0.6); MONO % 6.3 % (1.7-9.3); PLATELET COUNT 292 K/mm3 (130-400); RED BLOOD COUNT 3.09 M/mm3 (4.10-5.30); REDCELL DISTRIBUTION WIDTH-CV 17.8 % (11.5-14.5)
[2021-05-05 07:04] LABS: HEMATOCRIT 26.5 % (37.0-47.0); HEMOGLOBIN 8.1 g/dl (12.5-16.0); MEAN CORPUSCULAR HEMOGLOBIN 26 pg (27.0-31.0)
[2021-05-05 07:08] LABS: CALCIUM 9.5 mg/dL (8.4-10.2); CREATININE, serum 2.3 mg/dL (0.57-1.11); POTASSIUM 3.7 mmol/L (3.5-4.5)
--- NOTE | 2021-05-05 07:23 | NUR ---
Pt's daughter Alexandra, brought in the phone number for the patient's oncology team at [facility], if there are any questions please call Dr. Arias's nurse line at [phone].
[2021-05-05 07:40] VITALS: BP 103/60; PULSE 107; TEMP 98.3
--- NOTE | 2021-05-05 08:00 | NUR ---
PT REPORTING PAIN IN ABD IN AM, PAIN MEDICATION PROVIDED PER REQUEST. KATHLEEN NEAL CALLED ABOUT ALLOWING WATER NOW THAT [employer] HAS INC. 500FR RESTRICTION ORDERED AND PT AWARE OF THIS. PT NPO SINCE SUMMER, NUMBER FOR [facility] NURSE LINE ON THE CHART, KATHLEEN NOTIFIED OF [facility] FAXING OVER LP ORDERS. CONSENT NOT YET OBTAINED UNTIL OFFICIAL.
--- NOTE | 2021-05-05 09:56 | NUR ---
LP ORDERED, RADIOLOGY CALLED AND COULD NOT FIND ORDERS FOR LABS THAT ARE NEEDED, LEFT MESSAGE WITH NURSE LINE AT FOR SPECIFIC ORDERS.
--- NOTE | 2021-05-05 10:17 | NUR ---
LY attended clinical rounds. The patient is to tentatively discharge tomorrow. LY followed up with the patient to review discharge plan. She confirms that she plans on returning home with her son and home health services through [facility]. She had no questions or concerns for SW at this time. LY contacted and updated [facility]. [facility] reports that they will go out on Monday to see the patient. *Discharge plan: home with son and home health*
--- NOTE | 2021-05-05 11:00 | NUR ---
ASSESSMENT COMPLETE. PT VERY NERVOUS AND CONCERNED ABOUT ABOUT HER LUMBAR PUNCTURE PROCEDURE TODAY. I ASSURED HER THAT WE HAVE EXCELLANT STAFF AND WE WOULD TAKE GOOD CARE OF HER. PT DENIES PAIN, PALPITATIONS, SOB OR DIZZINESS AT THIS TIME. PT ALSO STATES SHE HAS NO OTHER NEEDS AT THIS TIME. CALL LIGHT IS WITHIN REACH.
--- NOTE | 2021-05-05 11:57 | NUR ---
CONSENT OBTAINED FOR LP, NO QUESTIONS AT THIS TIME, PT AWARE OF TIME BETWEEN [phone]
[2021-05-05 12:10] VITALS: BP 106/71; PULSE 108; TEMP 98.9
[2021-05-05 15:56] VITALS: BP 115/77; PULSE 111; TEMP 97.7
--- NOTE | 2021-05-05 19:05 | NUR ---
PT RESTING IN HER RECLINER WATCHING TV. PT RECOVERING WELL FROM LUMBER PROCEDURE TODAY. PT DENIES PAIN, PALPITATIONS, SOB OR DIZZINESS AT THIS TIME. PT STATES SHE HAS NO OTHER NEEDS AT THIS TIME. CALL LIGHT WITHIN REACH.
[2021-05-05 19:28] VITALS: BP 112/78; PULSE 115; TEMP 97.9
[2021-05-06 00:23] VITALS: BP 112/76; PULSE 103; TEMP 98.1
[2021-05-06 05:16] VITALS: BP 115/62; PULSE 102; TEMP 98.1
--- NOTE | 2021-05-06 07:00 | NUR ---
Report received from ALISTAIR Londono. Pt in bed resting, denies needs, will continue to onitor.
[2021-05-06 07:01] LABS: BASO % 0.2 % (0.0-2.0); EOS # 0.1 K/mm3 (0.0-0.7); EOS % 1.3 % (0-4.0); GRAN # 6.7 K/mm3 (1.4-6.5); GRAN % 72.2 % (42.2-75.2); LYMPH # 1.8 K/mm3 (1.2-3.4); LYMPH % 19.4 % (20.0-51.0); MEAN CELL VOLUME 89 fl (80.0-100.0); MEAN CORPUSCULAR HGB CONC 30 g/dl (33.0-37.0); MEAN PLATELET VOLUME 8.9 fl (7.4-10.4); MONO # 0.6 K/mm3 (0.1-0.6); MONO % 6.3 % (1.7-9.3); PLATELET COUNT 238 K/mm3 (130-400); RED BLOOD COUNT 2.93 M/mm3 (4.10-5.30)
[2021-05-06 07:04] LABS: HEMATOCRIT 26.2 % (37.0-47.0); HEMOGLOBIN 7.8 g/dl (12.5-16.0); MEAN CORPUSCULAR HEMOGLOBIN 27 pg (27.0-31.0)
[2021-05-06 07:27] LABS: CALCIUM 8.7 mg/dL (8.4-10.2); CREATININE, serum 1.84 mg/dL (0.57-1.11); MAGNESIUM 1.5 mg/dL (1.6-2.6); POTASSIUM 3.3 mmol/L (3.5-4.5)
[2021-05-06 07:52] VITALS: BP 111/69; PULSE 107; TEMP 98.1
--- NOTE | 2021-05-06 09:02 | NUR ---
Assessment charted. Daughter, Alexandra here to visit this am and would like updates if discharging. Pt alert and oriented, denies pain, able to ambulate well with walker. Urine is daysi and hazy. Edema generalized and worse in legs at +2. R emanuel is a little red. INT to LH. Will continue ot monitor.
[2021-05-06] MEDS ORDERED: DIFLUCAN 100MG100 MG PO (09:34)
[2021-05-06] MEDS ORDERED: PROTONIX 40MG T40 MG PO (09:35)
--- NOTE | 2021-05-06 09:52 | NUR ---
Child Welfare Manager was notified by Hospitalist that patient will discharge home today. SW met with patient who is in agreement with discharge plan for home with Home Health services. LY faxed discharge orders to [facility] for PT/OT/ST/Nursing. Discharge Plan: Home with [facility]
[2021-05-06 12:30] VITALS: BP 96/68; PULSE 97; TEMP 98.1
--- NOTE | 2021-05-06 14:55 | NUR ---
Discharged pt at this time. Pt INT dc'd, tip intact. Called dishcarge to ALISTAIR Morris daughter and provided instructions, went over with pt as well.. Pt left with all belongings, escorted out by myself via w/c, son to drive home, criteria me.
== END 2021-05-06 14:45 | disposition home or self-care (01) | DRG 659 ==
LOC: COL.ER 17:47 → MEDICAL 20:19
PROVIDERS: Nurse Practitioner; Nurse Practitioner Family; Physician Assistant; Urology; ADMIT Student in an Organized Health Care Education/Training Program
PROC: 0T788DZ Dilation of Bilateral Ureters with Intraluminal Device, Via Natural or Artificial Opening Endoscopic (ICD-10-PCS; principal; 2021-05-04 16:30)
PROC: BT1DYZZ Fluoroscopy of Right Kidney, Ureter and Bladder using Other Contrast (ICD-10-PCS; 2021-05-04 16:30)
PROC: 0TP98DZ Removal of Intraluminal Device from Ureter, Via Natural or Artificial Opening Endoscopic (ICD-10-PCS; 2021-05-04 16:30)
DX: N17.9 Acute kidney failure, unspecified (principal); G93.41 Metabolic encephalopathy; C56.9 Malignant neoplasm of unspecified ovary; C48.2 Malignant neoplasm of peritoneum, unspecified; C78.7 Secondary malignant neoplasm of liver and intrahepatic bile duct; C78.00 Secondary malignant neoplasm of unspecified lung; E87.1 Hypo-osmolality and hyponatremia; N39.0 Urinary tract infection, site not specified; D64.9 Anemia, unspecified; N13.1 Hydronephrosis with ureteral stricture, not elsewhere classified; K59.00 Constipation, unspecified; F41.9 Anxiety disorder, unspecified; F32.A Depression, unspecified; G89.29 Other chronic pain; Z66 Do not resuscitate; E87.8 Other disorders of electrolyte and fluid balance, not elsewhere classified; E89.0 Postprocedural hypothyroidism; Z90.49 Acquired absence of other specified parts of digestive tract; Z90.710 Acquired absence of both cervix and uterus; Z98.51 Tubal ligation status; E66.01 Morbid (severe) obesity due to excess calories; E87.6 Hypokalemia; K22.70 Barrett's esophagus without dysplasia; E86.0 Dehydration; E83.42 Hypomagnesemia
CPT/HCPCS: 99223-AI; 99232-AI; 99233-AI; 99239; C1769; C2617; C9113; J2212; J2543; J2704; J3010; J3475; J7030; P9016; P9040; Q9967

== ENCOUNTER 2021-05-09 19:18 | Observation (INO) | payer BC, MEDICAID ==
[~2021-05-09] VITALS: Ht 167.6 cm; Wt 131.8 kg
[~2021-05-09 19:18] MED LIST changes: +CLARITIN REDIT; +DIFLUCAN 100MG100 MG PO; +KLONOPIN 0.5MG0.5 MG PO; +PRINIVIL10 MG PO; +ROXICODONE30 MG PO; +SKELAXIN 800MG800 MG PO
[2021-05-09 20:11] LABS: GASTROCCULT NEGATIVE; pH GASTRIC CONTENTS 3
[2021-05-09 20:26] LABS: BASO % 0.3 % (0.0-2.0); EOS # 0.1 K/mm3 (0.0-0.7); EOS % 0.6 % (0-4.0); GRAN # 7.6 K/mm3 (1.4-6.5); GRAN % 74.4 % (42.2-75.2); LYMPH # 1.8 K/mm3 (1.2-3.4); LYMPH % 17.5 % (20.0-51.0); MEAN CELL VOLUME 83 fl (80.0-100.0); MEAN CORPUSCULAR HGB CONC 32 g/dl (33.0-37.0); MEAN PLATELET VOLUME 10.5 fl (7.4-10.4); MONO # 0.7 K/mm3 (0.1-0.6); MONO % 6.6 % (1.7-9.3); PLATELET COUNT 154 K/mm3 (130-400); RED BLOOD COUNT 2.87 M/mm3 (4.10-5.30); REDCELL DISTRIBUTION WIDTH-CV 18.3 % (11.5-14.5)
[2021-05-09 20:27] LABS: HEMATOCRIT 23.9 % (37.0-47.0); HEMOGLOBIN 7.6 g/dl (12.5-16.0); MEAN CORPUSCULAR HEMOGLOBIN 26 pg (27.0-31.0)
[2021-05-09 20:46] LABS: ALBUMIN 2.1 gm/dL (3.5-5.0); BILIRUBIN,TOTAL 0.7 mg/dL (0.2-1.2); C-REACTIVE PROTEIN 15.85 mg/dL (0.00-0.50); CALCIUM 8.6 mg/dL (8.4-10.2); CREATININE, serum 1.15 mg/dL (0.57-1.11); POTASSIUM 3.4 mmol/L (3.5-4.5); TOTAL PROTEIN 7.5 gm/dL (6.2-8.1)
--- NOTE | 2021-05-09 23:12 | NUR ---
ALERT AND OX4. DENIES SOA, CHEST PAIN OR DIZZY. ABD PAIN AND BLOATING RATES A 4/10. DENIES NAUSEA OR VOMITING NOW BUT HAD VOMITED DARK SUBSTANCE TODAY. ADMIT FOR SBO. NO NG TUBE AT THIS POINT UNLESS STARTS TO VOMIT OR DISTEND EVEN MORE PER ANGELA NEAL. ICE CHIPS ONLY. ORIENTATED TO ROOM, CALL LIGHT AND BED FUNCTION. ASSESSMENT AND HX OBTAINED.
--- NOTE | 2021-05-10 00:40 | NUR ---
PAIN MED, SCD AND VOMIT BUCKET GIVEN JUST INCASE. RATING PAIN 7/10. O2 ON AT 2 LITERS.
[2021-05-10 00:53] VITALS: BP 138/94; PULSE 118; TEMP 98.3
--- NOTE | 2021-05-10 03:35 | NUR ---
PT REPORTS CURRENT PAIN MED REGIMEN NOT WORKING WELL FOR PAIN. ANGELA NOTIFED RESTART OF ROXICODONE. PT REPORTS MINMAL NAUSEA. POTASSIUM AND NS RUNNING PER ORDER. HAS HAD A COUPLE LOOSE BM TONIGHT.
--- NOTE | 2021-05-10 05:59 | NUR ---
MAGNEISUM HANGING NOW WILL RESUME POTASSIUM NEXT- 2 BAGS LEFT. WILL PASS ONTO DAYSHIFT RN TO CALL CONSULT TO SURGICAL. PT RATING PAIN 4/10 NOW AFTER RESTARTING HOME OXYCODONE 30MG. REF SCD AT THIS TIME WANTS A BREAK FROM THEM THEY MAKE HER HOT.
[2021-05-10 06:13] LABS: BASO % 0.2 % (0.0-2.0); EOS # 0.1 K/mm3 (0.0-0.7); EOS % 0.7 % (0-4.0); GRAN # 7.8 K/mm3 (1.4-6.5); GRAN % 73.7 % (42.2-75.2); LYMPH # 1.8 K/mm3 (1.2-3.4); LYMPH % 16.9 % (20.0-51.0); MEAN CELL VOLUME 83 fl (80.0-100.0); MEAN CORPUSCULAR HGB CONC 32 g/dl (33.0-37.0); MONO # 0.8 K/mm3 (0.1-0.6); MONO % 7.9 % (1.7-9.3); PLATELET COUNT 204 K/mm3 (130-400); RED BLOOD COUNT 2.87 M/mm3 (4.10-5.30); REDCELL DISTRIBUTION WIDTH-CV 18.4 % (11.5-14.5)
[2021-05-10 06:15] LABS: HEMATOCRIT 23.8 % (37.0-47.0); HEMOGLOBIN 7.5 g/dl (12.5-16.0); MEAN CORPUSCULAR HEMOGLOBIN 26 pg (27.0-31.0)
[2021-05-10 06:20] LABS: CREATININE, serum 1.1 mg/dL (0.57-1.11); POTASSIUM 3.9 mmol/L (3.5-4.5)
[2021-05-10 07:27] VITALS: BP 128/85; PULSE 117; TEMP 95.6
[2021-05-10 08:00] VITALS: BP 122/74; BP 128/85; PULSE 117; PULSE 118; TEMP 97.5
--- NOTE | 2021-05-10 09:19 | NUR ---
PT ALLERGIES AND PHARMACY CONFIRMED. PT STATES TRIM TECHNICIAN NURSE ALREADY CONFIRMED HOME MEDICATIONS.
--- NOTE | 2021-05-10 09:30 | NUR ---
PT ALERT AND ORIENTED. PT IV PULLED OUT. PT PORT ACCESSED BY CHARGE NURSE. PT AMBULATES SBA WITH WALKER. PT HAS CLEAR LUNGS, REFUSING O2 DURING DAY. PT S1,S2 SOUNDS AUSCULTATED, TACHYCARDIC. PT HAS EDEMA IN BILATERAL LOWER EXTREMITIES, TIGHT SKIN, 1+ PITTING. PT CAP REFILL <3S. PT PULSES 2+ IN ALL EXTREMITIES. PT HAS HYPOACTIVE BOWEL SOUNDS IN LOWER QUADRANTS BILATERALY. PT HAD LOOSE, WATERY BOWEL MOVEMENT THIS AM. PT PAIN 4-5/10. MANAGED WITH PAIN MEDICATIONS PER ORDERS.
[2021-05-10 11:43] VITALS: BP 122/74; PULSE 118; TEMP 97.5
--- NOTE | 2021-05-10 13:50 | NUR ---
Link Wire Fabric Machine Tender participated in Palliative Consult with ALISTAIR Redman and ALISTAIR Chaney. Patient lives in [place] and her son, Saurabh lives with her. Patient sees Dr. Stacy for primary care. Patient's daughter, Alexandra is at bedside for palliative consult. Patient was discharged from this hospital on 05/06/21 with [facility]. Patient states they came out this weekend, however she ended up back in the hospital. Patient advised at this time she has decided to pursue hospice services. ALISTAIR Redman reviewed hospice options including hospice at home, hosp[place] [facility], and the [facility]. Patient states she doesn't have a lot of help at home despite her son living with her. Even with this, patient states she wants to try hospice at home first, but may consider [facility] at a later time if needed. Patient reports her son Saurabh is there most of the time, but occasionally leaves the house to run errands. Alexandra advised they can coordinate to have someone at home when Saurabh needs to leave. Patient would like to return home with [facility] as the hospice agency. Patient will need a hospital bed, wheelchair, and commode. Alexandra reports she has already been in contact with [facility] about a hospital bed. Following the consult, SW contacted [facility] and faxed referral. LY also received a call from ALISTAIR [employer] Commercial Salesperson at Dr. Stacy's office who advised Dr. Stacy will follow for hospice care. LY provided update to Genny on discharge plan. Discharge Plan: Home with [facility]
--- NOTE | 2021-05-10 14:29 | NUR ---
Abby Chapin [facility], AILSTAIR Chaney and Юлия Arceo RN met with Bobbi and her daughter, Alexandra at bedside today to talk about hospice services. They are currently using home health services through [facility] and are planning on using them for hospice at home. At this time Bobbi would like to go home (with her son) on hospice service. She would also get help from her daughters for care as well. Alexandra has already spoken with [facility] staff about switching to hospice services. We discussed what in home equipment that she would need and Alexandra will discuss this, including hospital bed, with their staff when they meet today to sign some paperwork. We talked about concerns for falling, being able to reach help if needed and son is not closely present. Pt is concerned about falling--will consider a commode, wheelchair for longer walks, [employer] call button. Medications are working pretty well for her now but she has an allergy to morphine and zofran. Fentanyl and dilaudid are not very effective either per pt and daughter. Pt feels she can ride in a car to go home. May consider moving to facility if has problems at home or as things progress but this is yet to be determine. Diet will be left to her and comfort. May consider use of protein powder in shakes. Support provided. Questions answered.
--- NOTE | 2021-05-10 15:42 | NUR ---
Tar Chaser received a phone call from Dr. Stacy's RN Patient Care Manager, Genny who advised Dr. Stacy would prefer patient use [facility] as they have had issues with communication in the past with [facility]. Genny advised she spoke with patient's daughter, Alexandra about this. LY contacted Alexandra who advised she was fine with switching to [facility] as long as we can get the patient home quickly with the DME she needs. Alexandra stated that patient values Dr. Stacy's opinion so she was agreeable to switch agencies. LY contacted Avni with [facility] and faxed a referral. LY advised [facility] that patient is in need of a hospital bed, commode, and wheelchair. LY also notified Dinorah at [facility] of the change in agency. LY also updated palliative RN, Юлия on discharge plan. Discharge Plan: Home with [facility]
--- NOTE | 2021-05-10 15:45 | NUR ---
Initial visit; Patient thanked Ring Conductor for looking in on her and offering God's blessings. Ring Conductor will follow up. met her two daughters.
--- NOTE | 2021-05-10 15:49 | NUR ---
Per physician's request, I am advised that pt will use [facility] for home hospice.
[2021-05-10 16:00] VITALS: BP 108/76; PULSE 117; TEMP 98.3
--- NOTE | 2021-05-10 18:33 | NUR ---
Pt continuing on plan of care. Pt vitals remained stable this shift. Pt had palliative care consult and care plan today. Pt pain managed with IV and PO medications per orders. No significant changes noted in pt status this shift.
--- NOTE | 2021-05-10 23:52 | NUR ---
ALERT AND OX4. DENIES SOA, CHEST PAIN OR DIZZY. REPORTING PAIN AND NAUSEA. PHENERGAN GIVEN IV AND DILADID. REFUSED SCD DUE IT MAKING HER FEEL HOT. AMBULATES W WALKER TO BR W ASST. O2 AT HS. POC DISCUSSED. CALL LIGHT WI REACH.
[2021-05-11 00:26] VITALS: BP 115/71; PULSE 117; TEMP 98.6
--- NOTE | 2021-05-11 05:04 | NUR ---
RESTED THROUGH THE NIGHT WITHOUT INCIDENT.
[2021-05-11 05:05] VITALS: BP 115/62; PULSE 121; TEMP 98.4
[2021-05-11 07:58] VITALS: BP 115/87; PULSE 126; TEMP 98.1
--- NOTE | 2021-05-11 08:00 | NUR ---
PT IS ALERT AND ORIENTED THIS MORNING. SHIFT ASSESSMENT COMPLETE WITH NO SIGNIFICANT ABNORMALITIES NOTED. SHE STATES SHE IS NOT FEELING WELL AND IT IS VISABLY NOTED. MORNING MEDICATION GIVEN WELL PAIN MEDICATION (ROXYCODONE.) PT PLAN IS TO DISCHARGE HOME WITH [facility] LATER TODAY.
[2021-05-11] MEDS ORDERED: DILAUDID 2MG TAB2 MG PO (08:59)
--- NOTE | 2021-05-11 09:44 | NUR ---
Follow-up visit; Patient thanked Refinery Operator Assistant for looking in on her again today and bringing a prayer card and offering God's blessings and Refinery Operator Assistant's availability.
--- NOTE | 2021-05-11 11:03 | NUR ---
PROMETHAZINE OBTAINED FROM PHARMACY AND HUNG IN PT ROOM. PT DID HAVE AN EPISODE OF EMESIS SHORTLY AFTER BAG WAS HUNG.
--- NOTE | 2021-05-11 11:50 | NUR ---
PATIENT'S SON HERE. PATIENT DISCHARGING HOME WITH HOSPICE. GAVE DISCHARGE INSTRUCTIONS, E-SCRIPT SENT, AND DISCUSSED F/U APT. ANSWERED QUESTIONS/CONCERNS. CAPSKAVITHA STUDENT DC'D PORT-ACCESS. PATIENT TOLERATED WELL AND SITE COVERED WITH BANDAID AFTER FLUSH & HEPARIN. PATIENT IS DRESSED, PACKED AND ESCORTED OUT WITH WC TO PERSONAL VEHICLE.
--- NOTE | 2021-05-11 12:46 | NUR ---
DC orders and clinical updates faxed to Avni at [facility]. Contact made and [facility] confirms that the patient's equipment will be delivered later today and that formal admission will take place tomorrow morning. [facility] provides details of being in contact with the patient's daughter on arrangement for delivery time.
== END 2021-05-11 11:50 | disposition hospice, home (50) ==
LOC: COL.ER 19:18 → SURG 22:03
PROVIDERS: Emergency Medicine; Student in an Organized Health Care Education/Training Program; ADMIT Internal Medicine
DX: R11.2 Nausea with vomiting, unspecified (principal); C56.9 Malignant neoplasm of unspecified ovary; C78.7 Secondary malignant neoplasm of liver and intrahepatic bile duct; C78.02 Secondary malignant neoplasm of left lung; C78.01 Secondary malignant neoplasm of right lung; D63.0 Anemia in neoplastic disease; E87.6 Hypokalemia; E83.42 Hypomagnesemia; R60.0 Localized edema; C80.0 Disseminated malignant neoplasm, unspecified; N13.1 Hydronephrosis with ureteral stricture, not elsewhere classified; K22.70 Barrett's esophagus without dysplasia; R53.81 Other malaise; R53.1 Weakness; E89.0 Postprocedural hypothyroidism; F32.A Depression, unspecified; F41.9 Anxiety disorder, unspecified; G89.3 Neoplasm related pain (acute) (chronic); Z66 Do not resuscitate; Z79.899 Other long term (current) drug therapy; Z96.0 Presence of urogenital implants; Z92.21 Personal history of antineoplastic chemotherapy; Z79.890 Hormone replacement therapy
CPT/HCPCS: C9113; G0378; J1170; J2550; J3010; J3475; J3480; J7030